=== PATIENT | male | born 1935 | race Caucasian/White ===

== ENCOUNTER 2018-11-12 08:19 | Inpatient (IN) | payer MEDICARE ==
[2018-11-12] MEDS ORDERED: IPRATROPIUM-ALBUTEROL 3 ML NEB INHALATION STA (08:32)
--- NOTE | 2018-11-12 08:34 | ED ---
General Adult HPI - General Chief complaint: Shortness of Breath Stated complaint: MINOO Time Seen by Provider: 11/12/18 08:21 Source: patient, EMS, RN notes reviewed Mode of arrival: EMS Limitations: no limitations - History of Present Illness Initial comments: Patient is a pleasant 83-year-old male presenting to the emergency Department with complaints of difficulty in breathing. Symptoms have progressed over the past week or 2. Patient does have a chronic cough that is unchanged. No sputum. No chest pain. No fever. No leg pain or leg swelling. Dyspnea does worsen with exertion. Patient is a former smoker. Patient has no history of chronic lung disease. - Related Data Home Medications Medication Instructions Recorded Confirmed Brinzolamide/Brimonidine Tart 1 drop RIGHT EYE BID 12/11/15 11/12/18 [Simbrinza 1%-0.2% Eye Drops] Digoxin [Lanoxin] 125 mcg PO DAILY 12/11/15 11/12/18 Enalapril [Vasotec] 2.5 mg PO QAM 12/11/15 11/12/18 Metoprolol Tartrate 25 mg PO BID 12/11/15 11/12/18 Simvastatin [Zocor] 20 mg PO HS 12/11/15 11/12/18 Spironolactone [Aldactone] 12.5 mg PO DAILY 12/11/15 11/12/18 Cholecalciferol [Vitamin D3] 5,000 unit PO DAILY 11/12/18 11/12/18 Warfarin Sodium 3 mg PO SUFRSA 11/12/18 11/12/18 Warfarin Sodium 4 mg PO MOTUWETH 11/12/18 11/12/18 busPIRone HCL [Buspar] 7.5 mg PO BID 11/12/18 11/12/18 Allergies Allergy/AdvReac Type Severity Reaction Status Date / Time No Known Allergies Allergy Verified 11/12/18 09:12 Review of Systems ROS Statement: Those systems with pertinent positive or pertinent negative responses have been documented in the HPI. ROS Other: All systems not noted in ROS Statement are negative. Constitutional: Denies: fever, chills Eyes: Denies: eye pain ENT: Denies: ear pain, throat pain Respiratory: Reports: dyspnea Cardiovascular: Denies: chest pain, palpitations Endocrine: Reports: fatigue Gastrointestinal: Denies: abdominal pain Genitourinary: Denies: dysuria Musculoskeletal: Denies: back pain Skin: Denies: rash Neurological: Denies: weakness Past Medical History Past Medical History: Atrial Fibrillation, Hyperlipidemia, Hypertension, Osteoarthritis (OA) Additional Past Medical History / Comment(s): neurapathy aleksandra hands and feet, urinary frequency nighttime,skin ca removed scalp History of Any Multi-Drug Resistant Organisms: None Reported Past Surgical History: Back Surgery, Heart Catheterization With Stent, Hernia Repair, Orthopedic Surgery, Pacemaker Additional Past Surgical History / Comment(s): heart stents x 2, pacemaker lt chest-[employer] mod # [id number] serial #[id number]- [employer] [id number]- has card,total lt hip,cervical laminectomy,. c5-c6 surgery,lumbar 3-5 disc repair-hardware present,aleksandra carpel tunnel,aleksandra cataracts,abdominal hernia repair Past Anesthesia/Blood Transfusion Reactions: No Reported Reaction Additional Past Anesthesia/Blood Transfusion Reaction / Comment(s): no hx blood transfusion Date of Last Stent Placement:: 11-29-2012 Type of Cardiac Device: Permanent Pacemaker Device Placement Date:: 12-01-2012 Past Psychological History: No Psychological Hx Reported Smoking Status: Former smoker Past Alcohol Use History: Occasional Past Drug Use History: None Reported - Past Family History Mother Family Medical History: Cancer (Breast), Myocardial Infarction ([place]) Additional Family Medical History / Comment(s): breast ca Father Family Medical History: No Reported History, Diabetes Mellitus Additional Family Medical History / Comment(s): at age 94 Brother(s) Family Medical History: Congestive Heart Failure (CHF) (Heart valve replacement) Additional Family Medical History / Comment(s): heart valve replacement General Exam Limitations: no limitations General appearance: alert, in no apparent distress Head exam: Present: atraumatic Eye exam: Present: normal appearance, PERRL ENT exam: Present: normal oropharynx Neck exam: Present: normal inspection Respiratory exam: Present: wheezes (Minimal expiratory wheeze), decreased breath sounds Cardiovascular Exam: Present: regular rate, normal rhythm Expanded Peripheral pulses: 2+: Radial (R), Radial (L), Dorsalis Pedis (R), Dorsalis Pedis (L) GI/Abdominal exam: Present: soft. Absent: tenderness Extremities exam: Present: normal inspection. Absent: pedal edema, calf tenderness Back exam: Present: normal inspection Neurological exam: Present: alert Psychiatric exam: Present: normal affect, normal mood Skin exam: Present: normal color Course Vital Signs 11/12/18 11/12/18 11/12/18 08:24 10:01 10:09 Temperature 98.1 F Pulse Rate 60 60 60 Respiratory 24 Rate Blood Pressure 141/54 O2 Sat by Pulse 91 L Oximetry 11/12/18 10:33 Temperature Pulse Rate 60 Respiratory 20 Rate Blood Pressure 158/62 O2 Sat by Pulse 87 L Oximetry EKG Findings - EKG Comments: EKG Findings:: Paced rhythm at 63. QRS 188. QT 436. QTc 446 and left axis. Wide-complex QRS. Nonspecific ST-T. Medical Decision Making - Medical Decision Making Patient reevaluated and resting comfortably in bed. Patient and family updated on results and plan. Case was discussed in detail with Dr. Gutierrez, covering for Dr. Lock, who will admit. - Lab Data Result diagrams: 11/12/18 08:40 11/12/18 08:40 Lab Results 11/12/18 11/12/18 11/12/18 Range/Units 08:40 08:40 08:40 WBC 13.0 H (3.8-10.6) k/uL RBC 4.08 L (4.30-5.90) m/uL Hgb 12.9 L (13.0-17.5) gm/dL Hct 39.8 (39.0-53.0) % MCV 97.6 (80.0-100.0) fL MCH 31.6 (25.0-35.0) pg MCHC 32.3 (31.0-37.0) g/dL RDW 14.1 (11.5-15.5) % Plt Count 242 (150-450) k/uL Neutrophils % 87 % Lymphocytes % 4 % Monocytes % 6 % Eosinophils % 1 % Basophils % 0 % Neutrophils # 11.3 H (1.3-7.7) k/uL Lymphocytes # 0.6 L (1.0-4.8) k/uL Monocytes # 0.8 (0-1.0) k/uL Eosinophils # 0.1 (0-0.7) k/uL Basophils # 0.1 (0-0.2) k/uL PT (9.0-12.0) sec INR (<1.2) APTT (22.0-30.0) sec D-Dimer (<0.60) mg/L FEU Sodium 132 L (137-145) mmol/L Potassium 5.0 (3.5-5.1) mmol/L Chloride 104 (98-107) mmol/L Carbon Dioxide 21 L (22-30) mmol/L Anion Gap 7 mmol/L BUN 31 H (9-20) mg/dL Creatinine 1.09 (0.66-1.25) mg/dL Est GFR (CKD-EPI)AfAm 72 (>60 ml/min/1.73 sqM) Est GFR (CKD-EPI)NonAf 62 (>60 ml/min/1.73 sqM) Glucose 117 H (74-99) mg/dL Calcium 9.1 (8.4-10.2) mg/dL Total Bilirubin 1.3 (0.2-1.3) mg/dL AST 46 (17-59) U/L ALT 37 (21-72) U/L Alkaline Phosphatase 48 (38-126) U/L Total Creatine Kinase 127 (55-170) U/L CK-MB (CK-2) 6.7 H (0.0-2.4) ng/mL CK-MB (CK-2) Rel Index 5.3 Troponin I 0.056 H* (0.000-0.034) ng/mL NT-Pro-B Natriuret Pep pg/mL Total Protein 6.4 (6.3-8.2) g/dL Albumin 3.6 (3.5-5.0) g/dL 11/12/18 11/12/18 Range/Units 08:40 08:40 WBC (3.8-10.6) k/uL RBC (4.30-5.90) m/uL Hgb (13.0-17.5) gm/dL Hct (39.0-53.0) % MCV (80.0-100.0) fL MCH (25.0-35.0) pg MCHC (31.0-37.0) g/dL RDW (11.5-15.5) % Plt Count (150-450) k/uL Neutrophils % % Lymphocytes % % Monocytes % % Eosinophils % % Basophils % % Neutrophils # (1.3-7.7) k/uL Lymphocytes # (1.0-4.8) k/uL Monocytes # (0-1.0) k/uL Eosinophils # (0-0.7) k/uL Basophils # (0-0.2) k/uL PT 22.3 H (9.0-12.0) sec INR 2.3 H (<1.2) APTT 30.6 H (22.0-30.0) sec D-Dimer >35.20 H (<0.60) mg/L FEU Sodium (137-145) mmol/L Potassium (3.5-5.1) mmol/L Chloride (98-107) mmol/L Carbon Dioxide (22-30) mmol/L Anion Gap mmol/L BUN (9-20) mg/dL Creatinine (0.66-1.25) mg/dL Est GFR (CKD-EPI)AfAm (>60 ml/min/1.73 sqM) Est GFR (CKD-EPI)NonAf (>60 ml/min/1.73 sqM) Glucose (74-99) mg/dL Calcium (8.4-10.2) mg/dL Total Bilirubin (0.2-1.3) mg/dL AST (17-59) U/L ALT (21-72) U/L Alkaline Phosphatase (38-126) U/L Total Creatine Kinase (55-170) U/L CK-MB (CK-2) (0.0-2.4) ng/mL CK-MB (CK-2) Rel Index Troponin I (0.000-0.034) ng/mL NT-Pro-B Natriuret Pep 5670 pg/mL Total Protein (6.3-8.2) g/dL Albumin (3.5-5.0) g/dL - Radiology Data Radiology results: report reviewed (Computed tomography scan negative for pulmonary embolism. Findings consistent with CHF), image reviewed (Two-view chest x-ray shows no acute process.) Disposition Clinical Impression: Congestive heart failure Disposition: ADMITTED IP TO THIS HOSP Is patient prescribed a controlled substance at d/c from ED?: No Referrals: Martita Ayers MD [Primary Care Provider] - 1-2 days Decision Time: 11:55
[2018-11-12 08:58] LABS: Basophils # (A) 0.1 k/uL (0-0.2); Basophils % (A) 0 %; Eosinophils # (A) 0.1 k/uL (0-0.7); Eosinophils % (A) 1 %; HCT 39.8 % (39.0-53.0); HGB 12.9 gm/dL (13.0-17.5); Lymphocytes # (A) 0.6 k/uL (1.0-4.8); Lymphocytes % (A) 4 %; MCH 31.6 pg (25.0-35.0); MCHC 32.3 g/dL (31.0-37.0); MCV 97.6 fL (80.0-100.0); Mean Platelet Volume 6.8; Monocytes # (A) 0.8 k/uL (0-1.0); Monocytes % (A) 6 %; Neutrophils # (A) 11.3 k/uL (1.3-7.7); Neutrophils % (A) 87 %; Platelet Count 242 k/uL (150-450); RBC 4.08 m/uL (4.30-5.90); RDW 14.1 % (11.5-15.5)
[2018-11-12 09:11] LABS: Albumin 3.6 g/dL (3.5-5.0); Calcium 9.1 mg/dL (8.4-10.2); Total Bilirubin 1.3 mg/dL (0.2-1.3); Total Protein 6.4 g/dL (6.3-8.2)
[2018-11-12 09:17] LABS: INR 2.3 (<1.2); Partial Thromboplastin Time 30.6 sec (22.0-30.0); Prothrombin Time 22.3 sec (9.0-12.0)
[2018-11-12 09:34] LABS: D-Dimer >35.20 mg/L FEU (<0.60)
[2018-11-12 09:36] LABS: Creatine Kinase MB 6.7 ng/mL (0.0-2.4)
--- NOTE | 2018-11-12 09:37 | XR ---
EXAMINATION TYPE: XR chest 2V DATE OF EXAM: 11/12/2018 COMPARISON: NONE HISTORY: Shortness of breath TECHNIQUE: Frontal and lateral views of the chest are obtained. FINDINGS: Scattered senescent parenchymal changes noted. Hyperinflation compatible with COPD. No evidence for infiltrate. No evidence for atelectasis. Heart size is enlarged. Mediastinal structures are stable and grossly unremarkable. No evidence for hilar prominence. Degenerative changes dorsal spine. IMPRESSION: 1. No evidence for acute pulmonary disease.
[2018-11-12 09:54] LABS: Troponin I 0.056 ng/mL (0.000-0.034)
[2018-11-12] MEDS ORDERED: ASPIRIN 325 MG TAB PO STA (11:56)
--- NOTE | 2018-11-12 12:03 | CT ---
EXAMINATION TYPE: CT angio chest DATE OF EXAM: 11/12/2018 COMPARISON: Same day chest x-ray HISTORY: PE; MINOO CT DLP: 269.7 mGycm. Automated Exposure Control for Dose Reduction was Utilized. CONTRAST: CTA scan of the thorax is performed without and with IV Contrast, patient injected with 100 ml mL of Isovue 370, pulmonary embolism protocol. MIP Images are created on CT scanner and reviewed. FINDINGS: LUNGS: There are small size bilateral pleural effusions nearly extending to lung apex level. Elevated left hemidiaphragm is present. There is significant respiratory motion artifact degradation making e valuation suboptimal particularly for subcentimeter nodularity. There is calcified pleural plaque lef t midlung anteriorly axial image 44. Mild interstitial opacities could reflect mild interstitial mark a. No suspicious focal consolidation. No large intraparenchymal mass. Tracheobronchial tree is patent . Mild underlying emphysematous change is felt present. MEDIASTINUM: There is satisfactory enhancement of the pulmonary artery and its branches, there is no CT evidence for pulmonary embolism. There are no greater than 1 cm hilar or mediastinal lymph nodes. No significant pericardial effusion is seen. Heart size is mildly enlarged. There is moderate righ t atrial and mild right ventricular dilatation. There are enlarged right and left pulmonary arteries, main pulmonary artery measures 3.4 cm in diameter axial image 51. CT findings consistent with underl maciel pulmonary artery hypertension. Adjacent ascending aorta measures up to 3.5 cm in diameter. Mild to moderate calcified plaque in the aortic arch and descending aorta is present. There is severe thre e-vessel coronary artery desiccation which is noted marker for coronary artery disease. There is refl ux of contrast into IVC and hepatic veins, CT findings consistent with right heart failure. Single le ad pacemaker is noted terminating in right ventricle. Calcifications at level of mitral and to greate r degree at aortic valve are noted. OTHER: Central calcification left kidney is favored vascular. Simple appearing 2.8 cm cyst medially upper pole level left kidney axial image 139 is noted. Mild to moderate multilevel disc space narrowi ng and vacuum disc phenomenon with moderate multilevel spurring is present. Degenerative change right glenohumeral joint is seen. There is partial visualization of surgical change in the lumbar spine on localizer. IMPRESSION: 1. No CT evidence for acute pulmonary embolism. 2. Findings consistent with CHF exacerbation felt present as there is mild cardiomegaly with mild aleksandra ateral interstitial edema and small bilateral pleural effusions. No suspicious focal consolidation. C T findings suggestive of right heart failure and underlying pulmonary artery hypertension noted.
[2018-11-12] MEDS ORDERED: ACETAMINOPHEN TAB 325 MG TAB PO STA (13:25)
[2018-11-12] MEDS: NITROGLYCERIN OINT 1 INCH/GM PACKET TOPICAL SCH ×2 (13:41→19:05)
--- NOTE | 2018-11-12 15:13 | P.HPIM ---
History of Present Illness H&P Date: 11/12/18 Chief Complaint: Worsening shortness of breath This is a 83-year-old male with a known past medical history of congestive heart failure, atrial fibrillation, hyperlipidemia, hypertension, coronary artery disease cardiac stents and pacemaker placement. Patient presents to the emergency room with chief complaint of worsening shortness of breath over the last 2 weeks. Patient reports last night he went to get up to go to the bathroom and did have a fall landing on his left hip. He is having difficulty getting up because he felt so weak and also increasing in shortness of breath. He made it back to his bed and was able to sleep at night. He woke up this morning again short of breath having difficulty even walking a few feet. and patient became concerned and called EMS and was brought into the hospital for further evaluation and treatment. Patient was found to have congestive heart failure. BNP was elevated in the 5000 CTA of the chest showing evidence of congestive heart failure. It revealed mild cardiomegaly with mild bilateral interstitial edema and small bilateral pleural effusions. No suspicious focal consolidation. CT findings are suggestive of right heart failure and underlying pulmonary artery hypertension. Patient started on IV Lasix 40 mg every 8 hours and cardiology has been placed on consult. Also note the patient was initially on Lasix oral twice a day. However he could not tolerate it because he had was urinating so much he cut back to once a day and still was urinating frequently. Patient stopped taking Lasix about a month ago on his own. Patient denies any chest pain, fever, chills, sweats, orthopnea, lower extremity swelling. Denies any bowel movement changes or urinary symptoms. Patient does admit to a chronic cough especially in the morning. Patient anticoagulated with Coumadin for atrial fibrillation. D-dimer was elevated at 35 CTA of chest negative for PE. Note that the troponin mildly elevated at 0.056 white count 13 and INR 2.3 Review of Systems Please refer to HPI otherwise unremarkable Past Medical History Past Medical History: Atrial Fibrillation, Coronary Artery Disease (CAD), Eye Disorder, Hyperlipidemia, Hypertension, Osteoarthritis (OA) Additional Past Medical History / Comment(s): Cardiomyopathy, arthritis multiple joints, neuropathy bilateral hands/legs/feet, BPH with frequent night time urination, glaucoma bilateral eyes, skin cancer removed from scalp. History of Any Multi-Drug Resistant Organisms: None Reported Past Surgical History: Back Surgery, Heart Catheterization With Stent, Hernia Repair, Orthopedic Surgery, Pacemaker Additional Past Surgical History / Comment(s): PCI with 2 stents, pacemaker lt chest-[employer] mod # [id number] serial #[id number] [employer] [id number]- has card, total lt hip, cervical [id number] surgery, lumbar 3-5 disc repair-hardware present,aleksandra carpel tunnel, aleksandra cataracts removed/lens implants, abdominal hernia repair, colonoscopy. Past Anesthesia/Blood Transfusion Reactions: No Reported Reaction Additional Past Anesthesia/Blood Transfusion Reaction / Comment(s): no hx blood transfusion Date of Last Stent Placement:: 11-29-2012 Type of Cardiac Device: Permanent Pacemaker Device Placement Date:: 12-01-2012 Smoking Status: Former smoker - Past Family History Mother Family Medical History: Cancer, Myocardial Infarction ([place]) Additional Family Medical History / Comment(s): breast ca Father Family Medical History: No Reported History, Diabetes Mellitus Additional Family Medical History / Comment(s): at age 94 Brother(s) Family Medical History: Congestive Heart Failure (CHF) Additional Family Medical History / Comment(s): heart valve replacement Medications and Allergies Home Medications Medication Instructions Recorded Confirmed Type Brinzolamide/Brimonidine Tart 1 drop RIGHT EYE BID 12/11/15 11/12/18 History [Simbrinza 1%-0.2% Eye Drops] Digoxin [Lanoxin] 125 mcg PO DAILY 12/11/15 11/12/18 History Enalapril [Vasotec] 2.5 mg PO QAM 12/11/15 11/12/18 History Metoprolol Tartrate 25 mg PO BID 12/11/15 11/12/18 History Simvastatin [Zocor] 20 mg PO HS 12/11/15 11/12/18 History Spironolactone [Aldactone] 12.5 mg PO DAILY 12/11/15 11/12/18 History Cholecalciferol [Vitamin D3] 5,000 unit PO DAILY 11/12/18 11/12/18 History Warfarin Sodium 3 mg PO SUFRSA 11/12/18 11/12/18 History Warfarin Sodium 4 mg PO MOTUWETH 11/12/18 11/12/18 History busPIRone HCL [Buspar] 7.5 mg PO BID 02/01/19 02/01/19 History Allergies Allergy/AdvReac Type Severity Reaction Status Date / Time No Known Allergies Allergy Verified 11/12/18 09:12 Physical Exam Vitals: Vital Signs Temp Pulse Resp BP Pulse Ox 11/12/18 14:00 60 18 134/57 97 11/12/18 13:40 60 20 118/71 93 L 11/12/18 13:18 97.8 F 60 18 102/74 99 11/12/18 12:42 101 H 24 158/68 98 11/12/18 10:33 60 20 158/62 87 L 11/12/18 10:09 60 11/12/18 10:01 60 11/12/18 08:24 98.1 F 60 24 141/54 91 L Intake and Output 11/11/18 11/12/18 11/12/18 22:59 06:59 14:59 Other: Weight 77.111 kg Head normocephalic Neck supple Lungs diminished bilaterally ,patient is short of breath while talking Heart regular rate and rhythm S1-S2, no rub or gallop Abdomen is soft nontender nondistended positive bowel sounds no hepatosplenomegaly Extremities no edema Neuro alert and orientated to 3 Results CBC & Chem 7: 11/12/18 08:40 11/12/18 08:40 Labs: Abnormal Lab Results - Last 24 Hours (Table) 11/12/18 11/12/18 11/12/18 Range/Units 08:40 08:40 08:40 WBC 13.0 H (3.8-10.6) k/uL RBC 4.08 L (4.30-5.90) m/uL Hgb 12.9 L (13.0-17.5) gm/dL Neutrophils # 11.3 H (1.3-7.7) k/uL Lymphocytes # 0.6 L (1.0-4.8) k/uL PT (9.0-12.0) sec INR (<1.2) APTT (22.0-30.0) sec D-Dimer (<0.60) mg/L FEU Sodium 132 L (137-145) mmol/L Carbon Dioxide 21 L (22-30) mmol/L BUN 31 H (9-20) mg/dL Glucose 117 H (74-99) mg/dL CK-MB (CK-2) 6.7 H (0.0-2.4) ng/mL Troponin I 0.056 H* (0.000-0.034) ng/mL 11/12/18 Range/Units 08:40 WBC (3.8-10.6) k/uL RBC (4.30-5.90) m/uL Hgb (13.0-17.5) gm/dL Neutrophils # (1.3-7.7) k/uL Lymphocytes # (1.0-4.8) k/uL PT 22.3 H (9.0-12.0) sec INR 2.3 H (<1.2) APTT 30.6 H (22.0-30.0) sec D-Dimer >35.20 H (<0.60) mg/L FEU Sodium (137-145) mmol/L Carbon Dioxide (22-30) mmol/L BUN (9-20) mg/dL Glucose (74-99) mg/dL CK-MB (CK-2) (0.0-2.4) ng/mL Troponin I (0.000-0.034) ng/mL Thrombosis Risk Factor Assmnt - Choose All That Apply Any of the Below Risk Factors Present?: Yes Each Factor Represents 1 point: Heart failure (<1month) Other Risk Factors: Yes Each Risk Factor Represents 2 Points: Malignancy Each Risk Factor Represents 3 Points: Age 75 years or older Other congenital or acquired thrombophilia - If yes, enter type in comment: No Thrombosis Risk Factor Assessment Total Risk Factor Score: 6 Thrombosis Risk Factor Assessment Level: High Risk Assessment and Plan Assessment: 1. Acute on chronic CHF exacerbation: Start patient on IV Lasix 40 mg every 8. Consult cardiology. Check 2-D echo. BNP elevated 5670. CTA of the chest noting congestive heart failure findings. Patient noncompliant with his home Lasix 2. Leukocytosis: consult infectious disease. Patient is known to Dr. Ayers 3. Elevated troponin 0.056. Patient denies chest pain. Continue to monitor cardiac enzymes. Await cardiology evaluation 4. Fall with left hip pain. No loss of consciousness. Check left x-ray. Patient has had previous orthopedic surgery to that left hip 5. History of Atrial fibrillation: anticoagulated with Coumadin. Continue digoxin and metoprolol for rate control 6. History of coronary artery disease with prior cardiac stents 2 7. Hyperlipidemia 8. Essential hypertension 9. Elevated d-dimer and CT of the chest negative for PE 10. Acute hypoxic respiratory failure secondary to CHF exacerbation. Patient currently on 2 L of oxygen GI prophylaxis Pepcid and DVT prophylaxis Coumadin Time with Patient: Greater than 30 (Greater than 50% of the total time spent in counseling and coordination of care.I performed an examination of the patient and discussed their management with the physician Reflector Driller And Deburrer. I have reviewed the Physician Reflector Driller And Deburrer's notes and agree with the documented findings and plan of care)
--- NOTE | 2018-11-12 16:36 | XR ---
EXAMINATION TYPE: XR Hip Complete LT DATE OF EXAM: 11/12/2018 COMPARISON: 06/11/2016 HISTORY: 83-year-old male with pain, fall TECHNIQUE: FINDINGS: Both acetabular cup and femoral stem components of the left hip arthroplasty appear well seated. No c onvincing periprosthetic fracture is identified. Extensive, nearly bridging heterotopic ossification along the superior aspect of the hip joint is unchanged. IMPRESSION: Left hip total arthroplasty. No appreciable periprosthetic fracture is identified. Near-complete brid ging heterotopic ossification along the superior aspect of the hip joint similar to 2016.
[2018-11-12] MEDS: FUROSEMIDE 10 MG/ML 4 ML VIAL IV SCH (16:46)
[2018-11-12 17:12] LABS: Troponin I 0.075 ng/mL (0.000-0.034)
[2018-11-12] MEDS: WARFARIN 3 MG TAB PO SCH (19:05)
[2018-11-12] MEDS: BRIMONIDINE TARTRATE 0.2% DROPS 5 ML BTL RIGHT EYE SCH (20:07)
[2018-11-12] MEDS: METOPROLOL TARTRATE 25 MG TAB PO SCH (20:07)
[2018-11-12] MEDS: DORZOLAMIDE HCL 2% DROPS 10 ML BTL RIGHT EYE SCH (20:07)
[2018-11-12] MEDS: busPIRone HCl 5 MG TAB PO SCH (20:07)
[2018-11-12] MEDS: ATORVASTATIN 10 MG TAB PO SCH (20:07)
[2018-11-12 20:44] LABS: Creatine Kinase MB 6.9 ng/mL (0.0-2.4)
[2018-11-12 20:54] LABS: Troponin I 0.077 ng/mL (0.000-0.034)
[2018-11-13] MEDS: FUROSEMIDE 10 MG/ML 4 ML VIAL IV SCH ×3 (00:02→16:35)
[2018-11-13] MEDS: NITROGLYCERIN OINT 1 INCH/GM PACKET TOPICAL SCH ×2 (00:05→09:23)
[2018-11-13 07:17] LABS: Basophils # (A) 0.1 k/uL (0-0.2); Basophils % (A) 1 %; Eosinophils # (A) 0.4 k/uL (0-0.7); Eosinophils % (A) 4 %; HCT 41.5 % (39.0-53.0); HGB 13.5 gm/dL (13.0-17.5); Lymphocytes # (A) 0.8 k/uL (1.0-4.8); Lymphocytes % (A) 7 %; MCH 32.1 pg (25.0-35.0); MCHC 32.7 g/dL (31.0-37.0); MCV 98.4 fL (80.0-100.0); Mean Platelet Volume 6.7; Monocytes # (A) 0.6 k/uL (0-1.0); Monocytes % (A) 6 %; Neutrophils # (A) 8.5 k/uL (1.3-7.7); Neutrophils % (A) 81 %; Platelet Count 237 k/uL (150-450); RBC 4.21 m/uL (4.30-5.90); WBC 10.5 k/uL (3.8-10.6)
[2018-11-13 07:29] LABS: Albumin 3.6 g/dL (3.5-5.0); Calcium 9.4 mg/dL (8.4-10.2); Potassium 4.4 mmol/L (3.5-5.1); Total Bilirubin 1.4 mg/dL (0.2-1.3); Total Protein 6.4 g/dL (6.3-8.2)
[2018-11-13 07:30] LABS: INR 2.2 (<1.2); Prothrombin Time 21.7 sec (9.0-12.0)
--- NOTE | 2018-11-13 08:23 | ECHOF ---
Referral Reason:check EF MEASUREMENTS -------- HEIGHT: 175.3 cm WEIGHT: 77.1 kg BP: 102/74 IVSd: 1.1 cm (0.6 - 1.1) LVIDd: 4.8 cm (3.9 - 5.3) LVPWd: 1.1 cm (0.6 - 1.1) IVSs: 1.1 cm LVIDs: 4.2 cm LVPWs: 1.2 cm LAESV Index (A-L): 46.73 ml/m Ao Diam: 2.6 cm (2.0 - 3.7) LA Diam: 3.8 cm (2.7 - 3.8) AV Cusp: 1.3 cm (1.5 - 2.6) EPSS: 1.0 cm AV maxP.14 mmHg AV meanP.35 mmHg RAP: 5.00 mmHg RVSP: 52.71 mmHg MV EF SLOPE: 90.38 mm/s (70 - 150) MV EXCURSION: 1.84 cm (> 18.000) FINDINGS -------- Paced rhythm. This was a technically adequate study. The left ventricular size is normal. There is borderline concentric left ventricular hypertrophy. Overall left ventricular systolic function is moderate-severely impaired with, an EF between 30 - 35 %. Septum is hypokinetic Inferior is hypokinetic. [place] is hypokinetic. The RV was not well visualized. LA is severely dilated >40 ml/m2 RA appears enlarged. There is mild to moderate aortic valve sclerosis. Trace amount of aortic regurgitation. There is mild aortic stenosis present. Peak/mean gradient across the Aortic Valve is 16.14mmHg / 10.35mmHg. The mitral valve leaflets are mildly thickened. Mild mitral annular calcification present. Mod[place] [id number] mitral regurgitation is present. Moderate to severe tricuspid regurgitation present. There is mild to moderate pulmonary hypertensio n. The right ventricular systolic pressure, as measured by Doppler, is 52.71mmHg. The pulmonic valve was not well visualized. The aortic root size is normal. Normal inferior vena cava with normal inspiratory collapse consistent with estimated right atrial pre ssure of 5 mmHg. There is no pericardial effusion. CONCLUSIONS -------- 1. Paced rhythm. 2. This was a technically adequate study. 3. The left ventricular size is normal. 4. There is borderline concentric left ventricular hypertrophy. 5. Overall left ventricular systolic function is moderate-severely impaired with, an EF between 30 - 35 %. 6. Septum is hypokinetic 7. Inferior is hypokinetic. 8. [place] is hypokinetic. 9. The RV was not well visualized. 10. LA is severely dilated >40 ml/m2 11. RA appears enlarged. 12. There is mild to moderate aortic valve sclerosis. 13. Trace amount of aortic regurgitation. 14. There is mild aortic stenosis present. 15. Peak/mean gradient across the Aortic Valve is 16.14mmHg / 10.35mmHg. 16. The mitral valve leaflets are mildly thickened. 17. Mild mitral annular calcification present. 18. [id number] mitral regurgitation is present. 19. Moderate to severe tricuspid regurgitation present. 20. There is mild to moderate pulmonary hypertension. 21. The right ventricular systolic pressure, as measured by Doppler, is 52.71mmHg. 22. The pulmonic valve was not well visualized. 23. The aortic root size is normal. 24. There is no pericardial effusion. [place] ATTORNEY: Bobby Salazar RDCS
--- NOTE | 2018-11-13 08:52 | CONS ---
CONSULTATION DATE OF SERVICE: 11/12/2018. REASON FOR CONSULTATION: Leukocytosis. HISTORY OF PRESENT ILLNESS: The patient is an 83 -year-old male presenting to the ER at [facility] with increasing shortness of breath. The patient's symptoms has been progressively getting worse over the last week. The patient also had a recent fall last week when the patient was trying to get out and slipped, hitting his left hip area. The patient has been complaining of some dull aching pain to the left hip, 3 to 4 out of 10, and no radiation. The patient had increasing shortness of breath mostly on exertion but some with rest. The patient did have a very mild cough mostly in the morning. The patient has no further coughing during the day or any sputum production. The patient denies having any URI symptoms. No abdominal pain or any diarrhea. With these symptoms, the patient was evaluated by the ER physician. On arrival to the ER, patient was afebrile. [place] [address] also elevated troponin, INR therapeutic at 2.3. Liver enzymes were normal. No UA was done. The patient did have a CT angiogram that was negative for PE. However did shows features of congestive heart failure. Chest x-ray was negative for any acute pulmonary disease. X-rays of the left hip did not show any evidence of any fracture. The patient has been admitted to the hospital for management of underlying cardiac condition with consult to cardiology. I was asked to see the patient because of his elevated white count. REVIEW OF SYSTEMS: Positive points have been mentioned in HPI. Other systems have been negative. PAST MEDICAL HISTORY: Atrial fibrillation, coronary artery disease, hypertension, hyperlipidemia, osteoarthritis, benign prostatic hypertrophy. PAST SURGICAL HISTORY: Back surgery, heart catheterization, stent, hernia repair, left hip replacement, PTCA with stent x2 and pacemaker placement. SOCIAL HISTORY: Remote history of smoking. , lives with his . No drinking or drug use. FAMILY HISTORY: Mother with history of breast cancer and [place]. Father history of diabetes. ALLERGIES: No known drug allergies. MEDICATION: The patient is currently on aspirin, Lipitor, Buspar, vitamin D3, Lanoxin, Pepcid and Lasix, Zestril, Lopressor, Aldactone, Coumadin. PHYSICAL EXAMINATION: Blood pressure is 137/64 with a pulse of 59. Temperature 97.7, he is 98% on 3 L nasal cannula. General description is an elderly male lying in bed in no distress. No tachypnea or accessory muscles of respiration use. HEENT: Shows slight pallor. No scleral icterus. Oral mucosa membranes are dry. No pharyngeal erythema or thrush. Neck: Trachea central. No thyromegaly. Lungs unlabored breathing. Clear to auscultation anteriorly. No wheeze. Heart S1, S2. Irregular rate and rhythm. ABDOMEN: Soft. No tenderness. No guarding or rigidity. Extremities: No edema of the feet. SKIN examination: No rash or mass palpable. Neurological: Patient is awake, alert, oriented times three. Mood and affect normal. LABS: Hemoglobin is 12.8, white count 13,000 with a BUN of 31, creatinine 1.01. Troponin has been elevated. Electrolytes normal. Liver enzymes normal. 0.9. Chest x-ray has been negative. DIAGNOSTIC IMPRESSION AND PLAN: Patient admitted to the hospital with increasing shortness of breath and more likely cardiac etiology. Clinically, the patient has low for underlying pneumonia. However, the patient did have elevated white count, which could be reactive with underlying chronic condition. Also have a history of recent fall with pain to the left hip. No evidence of any fracture noted. The patient did not have any tenderness on abdominal examination. etiology. Underlying UTI need to be ruled out. PLAN: 1. We will check a UA and cultures to complete the workup. 2. Repeat CBC tomorrow. 3. If the patient spikes any fever, or any jump in the white count, repeat cultures will be obtained before starting the patient on any antibiotic. However in view of clinical low suspicion for any infection at this point, we will hold on any systemic antibiotic therapy. Thank you for this consultation. We will follow this patient along with you. MMODL / IJN: [id number] /
[2018-11-13] MEDS ORDERED: ASPIRIN 325 MG TAB PO SCH (09:00)
[2018-11-13] MEDS: busPIRone HCl 5 MG TAB PO SCH ×2 (09:21→20:25)
[2018-11-13] MEDS: DIGOXIN 125 MCG TAB PO SCH (09:22)
[2018-11-13] MEDS: FAMOTIDINE 20 MG TAB PO SCH (09:22)
[2018-11-13] MEDS: METOPROLOL TARTRATE 25 MG TAB PO SCH ×2 (09:22→20:26)
[2018-11-13] MEDS: LISINOPRIL 5 MG TAB PO SCH (09:22)
[2018-11-13] MEDS: SPIRONOLACTONE 25 MG TAB PO SCH (09:22)
[2018-11-13] MEDS: DORZOLAMIDE HCL 2% DROPS 10 ML BTL RIGHT EYE SCH ×2 (09:23→20:26)
[2018-11-13] MEDS: BRIMONIDINE TARTRATE 0.2% DROPS 5 ML BTL RIGHT EYE SCH ×2 (09:23→20:26)
--- NOTE | 2018-11-13 10:01 | P.CRDCN ---
History of Present Illness Consult date: 11/13/18 Requesting physician: Jean Gutierrez Consult reason: congestive heart failure Chief complaint: Shortness of breath History of present illness: This is a pleasant 83-year-old gentleman who follows regularly with Dr. Dietz in the office. He has a known history of hyperlipidemia, hypertension, coronary artery disease with prior stent placements, prior pacemaker implantation, persistent atrial fibrillation, prior congestive heart failure. He presents to the hospital with symptoms of progressively worsening shortness of breath with associated wheezing, he states that he's also progressively been more weak and tired at home. According to the patient, he also experienced a fall, secondary to his legs being extremely weak. For these reasons she came to the emergency room for further evaluation. His initial chest x-ray on arrival here did not reveal any evidence for acute pulmonary disease. CTA of the chest did not reveal evidence for acute pulmonary embolism. Findings consistent with CHF exacerbation, mild cardiomegaly with mild bilateral interstitial edema and small bilateral pleural effusions. Left hip x-ray was performed which did not reveal any fracture. An echocardiogram with Doppler study was performed which revealed an ejection fraction of 30-35%, moderate to severe MR, moderate to severe TR, blood pressure on arrival here 140 /50 with a heart rate in the 60s, 91% on 3 L of oxygen. Blood pressure this morning 158/70 with a heart rate in the 60s, 94% on 4 L of oxygen. White blood cell count on admission 13.0, 10.5 this morning, hemoglobin 13.5, platelet count 237. INR 2.2, sodium 134, potassium 4.4, BUN 33 and creatinine 1.1. Troponins 0.05, 0.07, 0.07. BNP level 5670. Dig 0.9. At the time of my examination this morning, patient still complains of feeling short of breath. He does state that he coughed up a significant amount of yellow sputum earlier this morning. Past Medical History Past Medical History: Atrial Fibrillation, Coronary Artery Disease (CAD), Eye Disorder, Hyperlipidemia, Hypertension, Osteoarthritis (OA) Additional Past Medical History / Comment(s): Cardiomyopathy, arthritis multiple joints, neuropathy bilateral hands/legs/feet, BPH with frequent night time urination, glaucoma bilateral eyes, skin cancer removed from scalp. History of Any Multi-Drug Resistant Organisms: None Reported Past Surgical History: Back Surgery, Heart Catheterization With Stent, Hernia Repair, Orthopedic Surgery, Pacemaker Additional Past Surgical History / Comment(s): PCI with 2 stents, pacemaker lt chest-[employer] mod # [id number] serial #[id number]- [employer] [id number]- has card, total lt hip, cervical [id number] surgery, lumbar 3-5 disc repair-hardware present,aleksandra carpel tunnel, aleksandra cataracts removed/lens implants, abdominal hernia repair, colonoscopy. Past Anesthesia/Blood Transfusion Reactions: No Reported Reaction Additional Past Anesthesia/Blood Transfusion Reaction / Comment(s): no hx blood transfusion Date of Last Stent Placement:: 11-29-2012 Type of Cardiac Device: Permanent Pacemaker Device Placement Date:: 12-01-2012 Smoking Status: Former smoker - Past Family History Mother Family Medical History: Cancer, Myocardial Infarction ([place]) Additional Family Medical History / Comment(s): breast ca Father Family Medical History: No Reported History, Diabetes Mellitus Additional Family Medical History / Comment(s): at age 94 Brother(s) Family Medical History: Congestive Heart Failure (CHF) Additional Family Medical History / Comment(s): heart valve replacement Medications and Allergies Home Medications Medication Instructions Recorded Confirmed Type Brinzolamide/Brimonidine Tart 1 drop RIGHT EYE BID 12/11/15 11/12/18 History [Simbrinza 1%-0.2% Eye Drops] Digoxin [Lanoxin] 125 mcg PO DAILY 12/11/15 11/12/18 History Enalapril [Vasotec] 2.5 mg PO QAM 12/11/15 11/12/18 History Metoprolol Tartrate 25 mg PO BID 12/11/15 11/12/18 History Simvastatin [Zocor] 20 mg PO HS 12/11/15 11/12/18 History Spironolactone [Aldactone] 12.5 mg PO DAILY 12/11/15 11/12/18 History Cholecalciferol [Vitamin D3] 5,000 unit PO DAILY 11/12/18 11/12/18 History Warfarin Sodium 3 mg PO SUSA 11/12/18 11/12/18 History Warfarin Sodium 4 mg PO MOTUWETHFR 11/12/18 11/12/18 History busPIRone HCL [Buspar] 7.5 mg PO BID 11/12/18 11/12/18 History Allergies Allergy/AdvReac Type Severity Reaction Status Date / Time No Known Allergies Allergy Verified 11/12/18 09:12 Physical Exam Vitals: Vital Signs Temp Pulse Pulse Resp BP BP Pulse Ox 11/13/18 04:00 66 22 159/70 94 L 11/13/18 00:00 66 24 169/75 97 11/12/18 20:00 97.7 F 59 L 20 137/61 98 11/12/18 18:05 60 29 H 169/69 98 11/12/18 16:45 60 22 151/73 98 11/12/18 15:00 60 18 122/63 95 11/12/18 14:00 60 18 134/57 97 11/12/18 13:40 60 20 118/71 93 L 11/12/18 13:18 97.8 F 60 18 102/74 99 11/12/18 12:42 101 H 24 158/68 98 11/12/18 10:33 60 20 158/62 87 L 11/12/18 10:09 60 11/12/18 10:01 60 Intake and Output 11/12/18 11/13/18 11/13/18 22:59 06:59 14:59 Output Total 200 900 Balance -200 -900 Output: Urine 200 900 Other: Voiding Method Bedside Commode Urinal # Voids 2 Weight 72 kg PHYSICAL EXAMINATION: GENERAL: 83-year-old gentleman in no acute distress at the time of my examination HEENT: Head is atraumatic, normocephalic. Pupils equal, round. Sclera anicteric. Conjunctiva are clear. Mucous membranes of the mouth are moist. Neck is supple. There is elevated jugular venous pressure. No carotid bruit is heard. HEART EXAMINATION: Heart S1 and S2 irregularly irregular systolic ejection murmur is heard. CHEST EXAMINATION: Lungs reveal diminished air entry bilaterally, scattered wheezing throughout .No chest wall tenderness is noted on palpation or with deep breathing. ABDOMEN: Soft, nontender. Bowel sounds are heard. No organomegaly noted. EXTREMITIES: 2+ peripheral pulses with no evidence of peripheral edema and no calf tenderness noted. NEUROLOGIC patient is awake, alert and oriented 3 . . Results 11/13/18 06:18 11/13/18 06:18 Cardiac Enzymes 11/12/18 11/12/18 11/12/18 Range/Units 08:40 15:37 19:59 AST (17-59) U/L CK-MB (CK-2) 6.7 H 7.0 H 6.9 H (0.0-2.4) ng/mL Troponin I 0.056 H* 0.075 H* 0.077 H* (0.000-0.034) ng/mL 11/13/18 Range/Units 06:18 AST 37 (17-59) U/L CK-MB (CK-2) (0.0-2.4) ng/mL Troponin I (0.000-0.034) ng/mL Coagulation 11/13/18 Range/Units 06:18 PT 21.7 H (9.0-12.0) sec CBC 11/13/18 Range/Units 06:18 WBC 10.5 (3.8-10.6) k/uL RBC 4.21 L (4.30-5.90) m/uL Hgb 13.5 (13.0-17.5) gm/dL Hct 41.5 (39.0-53.0) % Plt Count 237 (150-450) k/uL Comprehensive Metabolic Panel 11/13/18 Range/Units 06:18 Sodium 134 L (137-145) mmol/L Potassium 4.4 (3.5-5.1) mmol/L Chloride 101 (98-107) mmol/L Carbon Dioxide 23 (22-30) mmol/L BUN 33 H (9-20) mg/dL Creatinine 1.17 (0.66-1.25) mg/dL Glucose 100 H (74-99) mg/dL Calcium 9.4 (8.4-10.2) mg/dL AST 37 (17-59) U/L ALT 38 (21-72) U/L Alkaline Phosphatase 53 (38-126) U/L Total Protein 6.4 (6.3-8.2) g/dL Albumin 3.6 (3.5-5.0) g/dL Current Medications Generic Name Dose Route Start Last Admin Trade Name Freq PRN Reason Stop Dose Admin Aspirin 325 mg 11/13/18 09:00 11/13/18 09:22 Aspirin PO 325 mg DAILY ARIA Administration Atorvastatin Calcium 10 mg 11/12/18 21:00 11/12/18 20:07 Lipitor PO 10 mg HS ARIA Administration Brimonidine Tartrate 1 drops 11/12/18 21:00 11/13/18 09:23 Alphagan P 0.2% Ophth Soln RIGHT EYE 1 drops BID [facility] Administration Buspirone HCl 7.5 mg 11/12/18 21:00 11/13/18 09:21 Buspar PO 7.5 mg BID [facility] Administration Cholecalciferol 5,000 unit 11/13/18 12:00 Vitamin D3 PO DAILY@1200 [facility] Digoxin 125 mcg 11/13/18 09:00 11/13/18 09:22 Lanoxin PO 125 mcg DAILY [facility] Administration Dorzolamide HCl 1 drops 11/12/18 21:00 11/13/18 09:23 Trusopt RIGHT EYE 1 drops BID [facility] Administration Famotidine 20 mg 11/13/18 09:00 11/13/18 09:22 Pepcid PO 20 mg DAILY [facility] Administration Furosemide 40 mg 11/12/18 16:00 11/13/18 09:21 Lasix IV 40 mg Q8HR [facility] Administration Lisinopril 5 mg 11/13/18 09:00 11/13/18 09:22 Zestril PO 5 mg QAM [facility] Administration Metoprolol Tartrate 25 mg 11/12/18 21:00 11/13/18 09:22 Lopressor PO 25 mg BID [facility] Administration Nitroglycerin 1 inch 11/12/18 13:00 11/13/18 09:23 Nitro-Bid Oint TOPICAL 1 inch QID [facility] Administration Sodium Chloride 10 ml 11/12/18 21:00 11/13/18 09:24 Saline Flush IV 10 ml BID [facility] Administration Spironolactone 12.5 mg 11/13/18 09:00 11/13/18 09:22 Aldactone PO 12.5 mg DAILY [facility] Administration Warfarin Sodium 3 mg 11/12/18 18:00 11/12/18 19:05 Coumadin PO 3 mg SuFrSa@1800 [facility] Administration Warfarin Sodium 4 mg 11/15/18 18:00 Coumadin PO MoTuWeTh@1800 [facility] Intake and Output 11/12/18 11/13/18 11/13/18 22:59 06:59 14:59 Output Total 200 900 Balance -200 -900 Output: Urine 200 900 Other: Voiding Method Bedside Commode Urinal # Voids 2 Weight 72 kg 11/13/18 06:18 11/13/18 06:18 EKG Interpretations (text) EKG shows a ventricular paced rhythm with underlying atrial fibrillation Assessment and Plan Plan: Assessment and plan #1 systolic congestive heart failure acute on chronic, echocardiogram with Doppler study was performed which revealed an ejection fraction of 30-35%, inferior, apical, septal hypokinesia. Moderate to severe mitral regurgitation and moderate to severe tricuspid regurg with moderate pulmonary hypertension noted. #2 chronic persistent atrial fibrillation, anticoagulated with Coumadin #3 hypertension #4 hyperlipidemia #5 known coronary artery disease with prior RCA stents #6 prior pacemaker implantation #7 abnormal troponins, not consistent with acute coronary syndrome, could be secondary to supply and demand mismatch. #8 possible tracheobronchitis Plan Echocardiogram with Doppler has been performed which revealed an EF of 30-35%. We will continue the patient on his dose of IV Lasix. Decrease aspirin 81 mg daily, continue metoprolol, discontinue Nitropaste, continue Aldactone and lisinopril along with Lanoxin. Monitor intake and along with daily weights and daily lytes BUN and creatinine daily PT/INR. Further recommendations to follow. DNP note has been reviewed, I agree with a documented findings and plan of care. Patient was seen and examined.
[2018-11-13] MEDS: CHOLECALCIFEROL 1,000 UNIT TAB PO SCH (12:15)
[2018-11-13 12:34] VITALS: BMI 23.4
--- NOTE | 2018-11-13 14:55 | P.PN ---
Subjective Progress Note Date: 11/13/18 This is a 83-year-old male with a known past medical history of congestive heart failure, atrial fibrillation, hyperlipidemia, hypertension, coronary artery disease cardiac stents and pacemaker placement. Patient presents to the emergency room with chief complaint of worsening shortness of breath over the last 2 weeks. Patient reports last night he went to get up to go to the bathroom and did have a fall landing on his left hip. He is having difficulty getting up because he felt so weak and also increasing in shortness of breath. He made it back to his bed and was able to sleep at night. He woke up this morning again short of breath having difficulty even walking a few feet. and patient became concerned and called EMS and was brought into the hospital for further evaluation and treatment. Patient was found to have congestive heart failure. BNP was elevated in the 5000 CTA of the chest showing evidence of congestive heart failure. It revealed mild cardiomegaly with mild bilateral interstitial edema and small bilateral pleural effusions. No suspicious focal consolidation. CT findings are suggestive of right heart failure and underlying pulmonary artery hypertension. Patient started on IV Lasix 40 mg every 8 hours and cardiology has been placed on consult. Also note the patient was initially on Lasix oral twice a day. However he could not tolerate it because he had was urinating so much he cut back to once a day and still was urinating frequently. Patient stopped taking Lasix about a month ago on his own. Patient denies any chest pain, fever, chills, sweats, orthopnea, lower extremity swelling. Denies any bowel movement changes or urinary symptoms. Patient does admit to a chronic cough especially in the morning. Patient anticoagulated with Coumadin for atrial fibrillation. D-dimer was elevated at 35 CTA of chest negative for PE. Note that the troponin mildly elevated at 0.056 white count 13 and INR 2.3 On 11/13/2018 patient was seen and examined on the telemetry floor he is laying in bed comfortably he states that his shortness of breath has improved he is able to ambulate from his bed to the bathroom with the use of walker there is no fever or chills no headache or dizziness no chest pain no palpitation no cough no nausea or vomiting no abdominal pain no diarrhea and no urinary symptoms Objective - Vital Signs Vital signs: Vital Signs Temp 97.3 F L 11/13/18 12:10 Pulse 63 11/13/18 12:10 Resp 20 11/13/18 12:10 BP 131/65 11/13/18 12:10 Pulse Ox 97 11/13/18 12:10 Intake & Output 11/12/18 11/13/18 11/13/18 18:59 06:59 18:59 Intake Total 840 Output Total 1100 Balance -1100 840 Weight 77.111 kg 72 kg 72 kg Intake: Oral 840 Output: Urine 1100 Other: Voiding Method Bedside Commode Urinal # Voids 2 - Exam Head normocephalic and atraumatic Neck supple no JVD no goiter Lungs diminished bilaterally ,patient is short of breath while talking Heart regular rate and rhythm S1-S2, no rub or gallop Abdomen is soft nontender nondistended positive bowel sounds no hepatosplenomegaly Extremities no edema no cyanosis or clubbing Neuro alert and orientated to 3 - Labs CBC & Chem 7: 11/13/18 06:18 11/13/18 06:18 Labs: Abnormal Lab Results - Last 24 Hours (Table) 11/12/18 11/12/18 11/13/18 Range/Units 15:37 19:59 06:18 RBC 4.21 L (4.30-5.90) m/uL Neutrophils # 8.5 H (1.3-7.7) k/uL Lymphocytes # 0.8 L (1.0-4.8) k/uL PT (9.0-12.0) sec INR (<1.2) Sodium (137-145) mmol/L BUN (9-20) mg/dL Glucose (74-99) mg/dL Total Bilirubin (0.2-1.3) mg/dL CK-MB (CK-2) 7.0 H 6.9 H (0.0-2.4) ng/mL Troponin I 0.075 H* 0.077 H* (0.000-0.034) ng/mL 11/13/18 11/13/18 Range/Units 06:18 06:18 RBC (4.30-5.90) m/uL Neutrophils # (1.3-7.7) k/uL Lymphocytes # (1.0-4.8) k/uL PT 21.7 H (9.0-12.0) sec INR 2.2 H (<1.2) Sodium 134 L (137-145) mmol/L BUN 33 H (9-20) mg/dL Glucose 100 H (74-99) mg/dL Total Bilirubin 1.4 H (0.2-1.3) mg/dL CK-MB (CK-2) (0.0-2.4) ng/mL Troponin I (0.000-0.034) ng/mL Assessment and Plan Plan: 1. Acute on chronic CHF exacerbation: Start patient on IV Lasix 40 mg every 8. Consult cardiology. Check 2-D echo. BNP elevated 5670. CTA of the chest noting congestive heart failure findings. Patient noncompliant with his home Lasix 2. Leukocytosis: consult infectious disease. Patient is known to Dr. Ayers 3. Elevated troponin 0.056. Patient denies chest pain. Continue to monitor cardiac enzymes. Await cardiology evaluation 4. Fall with left hip pain. No loss of consciousness. Check left x-ray. Patient has had previous orthopedic surgery to that left hip 5. History of Atrial fibrillation: anticoagulated with Coumadin. Continue digoxin and metoprolol for rate control 6. History of coronary artery disease with prior cardiac stents 2 7. Hyperlipidemia 8. Essential hypertension 9. Elevated d-dimer and CT of the chest negative for PE 10. Acute hypoxic respiratory failure secondary to CHF exacerbation. Patient currently on 2 L of oxygen GI prophylaxis Pepcid and DVT prophylaxis Coumadin
[2018-11-13] MEDS: WARFARIN 3 MG TAB PO SCH (17:33)
[2018-11-13] MEDS: ATORVASTATIN 10 MG TAB PO SCH (20:26)
[2018-11-13] MEDS ORDERED: AZITHROMYCIN 500 MG TAB PO STA (22:23)
[2018-11-13 23:20] LABS: Appearance,Urine Clear (Clear); Bilirubin,Urine Negative (Negative); Blood,Urine Negative (Negative); Color,Urine Light Yellow; Glucose,Urine (UA) Negative (Negative); Ketones,Urine Negative (Negative); Leukocyte Esterase,Urine Negative (Negative); Nitrite,Urine Negative (Negative); Protein,Urine Negative (Negative); Specific Gravity,Urine 1.009 (1.001-1.035); Urobilinogen,Urine <2.0 mg/dL (<2.0)
[2018-11-14] MEDS: FUROSEMIDE 10 MG/ML 4 ML VIAL IV SCH ×2 (00:03→09:31)
--- NOTE | 2018-11-14 01:34 | PN ---
PROGRESS NOTE DATE OF SERVICE: 11/13/2018. REASON FOR FOLLOWUP: Leukocytosis. INTERVAL HISTORY: The patient is currently afebrile. He is breathing comfortably. The patient has been complaining of having more cough and bringing up some sputum. The patient denies having any chest pain, though his breathing has improved. No abdominal pain and no diarrhea. EXAMINATION: The patient vital signs stable with a T-max is 98. General description is an elderly male up in the bed in no distress. Respiratory system: Unlabored breathing with coarse breath sounds at the base. No wheeze. Heart S1-S2 regular rate and rhythm. ABDOMEN: Soft, no tenderness. Extremities: No edema of the feet. LABS: The patient white count normalized to 10.5 and INR is 2.2. Creatinine is 1.17. DIAGNOSTIC IMPRESSION AND PLAN: Patient with leukocytosis with initial concern for possibly . However, the patient is now complaining of more cough and bringing up some sputum with concern for possible community acquired pneumonia. We will try to obtain a sputum. Repeat a chest x-ray in the morning. Add Rocephin and doxycycline. tomorrow. Continue supportive care. MMODL / IJN: [id number] /
--- NOTE | 2018-11-14 07:24 | XR ---
EXAMINATION TYPE: XR chest 2V DATE OF EXAM: 11/14/2018 COMPARISON: November 12, 2018 HISTORY: Shortness of breath TECHNIQUE: Frontal and lateral views of the chest are obtained. FINDINGS: Scattered senescent parenchymal changes noted. Hyperinflation compatible with COPD. Chronic elevation left hemidiaphragm. Patchy density right upper lobe may reflect developing infiltrate. Correlate clinically. Heart size is stable. Mediastinal structures are stable and grossly unremarkable. No evidence for hilar prominence. Degenerative changes dorsal spine. IMPRESSION: 1. Patchy density right upper lobe may reflect developing infiltrate. Correlate clinically.
[2018-11-14 07:51] LABS: Basophils # (A) 0.1 k/uL (0-0.2); Basophils % (A) 1 %; Eosinophils # (A) 0.6 k/uL (0-0.7); Eosinophils % (A) 7 %; HCT 41.5 % (39.0-53.0); HGB 13.6 gm/dL (13.0-17.5); Lymphocytes % (A) 11 %; MCH 31.6 pg (25.0-35.0); MCHC 32.8 g/dL (31.0-37.0); MCV 96.3 fL (80.0-100.0); Mean Platelet Volume 6.5; Monocytes # (A) 0.7 k/uL (0-1.0); Monocytes % (A) 8 %; Neutrophils # (A) 6.2 k/uL (1.3-7.7); Neutrophils % (A) 71 %; Platelet Count 262 k/uL (150-450); RBC 4.31 m/uL (4.30-5.90); RDW 14.1 % (11.5-15.5); WBC 8.7 k/uL (3.8-10.6)
[2018-11-14 08:03] LABS: INR 2.1 (<1.2); Prothrombin Time 20.9 sec (9.0-12.0)
[2018-11-14 08:06] LABS: Albumin 3.8 g/dL (3.5-5.0); Calcium 9.3 mg/dL (8.4-10.2); Total Bilirubin 1.3 mg/dL (0.2-1.3); Total Protein 6.7 g/dL (6.3-8.2)
[2018-11-14] MEDS: busPIRone HCl 5 MG TAB PO SCH ×2 (09:27→21:29)
[2018-11-14] MEDS: LISINOPRIL 5 MG TAB PO SCH (09:27)
[2018-11-14] MEDS: DOXYCYCLINE 100 MG CAP PO SCH ×2 (09:27→21:29)
[2018-11-14] MEDS: METOPROLOL TARTRATE 25 MG TAB PO SCH ×2 (09:29→21:29)
[2018-11-14] MEDS: SPIRONOLACTONE 25 MG TAB PO SCH (09:30)
[2018-11-14] MEDS: FAMOTIDINE 20 MG TAB PO SCH (09:30)
[2018-11-14] MEDS: ASPIRIN 81 MG PO SCH (09:31)
[2018-11-14] MEDS: DIGOXIN 125 MCG TAB PO SCH (09:31)
[2018-11-14] MEDS: BRIMONIDINE TARTRATE 0.2% DROPS 5 ML BTL RIGHT EYE SCH ×2 (09:31→21:29)
[2018-11-14] MEDS: DORZOLAMIDE HCL 2% DROPS 10 ML BTL RIGHT EYE SCH ×2 (09:32→21:29)
--- NOTE | 2018-11-14 10:31 | P.PN ---
Subjective Progress Note Date: 11/14/18 This is a 83-year-old male with a known past medical history of congestive heart failure, atrial fibrillation, hyperlipidemia, hypertension, coronary artery disease cardiac stents and pacemaker placement. Patient presents to the emergency room with chief complaint of worsening shortness of breath over the last 2 weeks. Patient reports last night he went to get up to go to the bathroom and did have a fall landing on his left hip. He is having difficulty getting up because he felt so weak and also increasing in shortness of breath. He made it back to his bed and was able to sleep at night. He woke up this morning again short of breath having difficulty even walking a few feet. and patient became concerned and called EMS and was brought into the hospital for further evaluation and treatment. Patient was found to have congestive heart failure. BNP was elevated in the 5000 CTA of the chest showing evidence of congestive heart failure. It revealed mild cardiomegaly with mild bilateral interstitial edema and small bilateral pleural effusions. No suspicious focal consolidation. CT findings are suggestive of right heart failure and underlying pulmonary artery hypertension. Patient started on IV Lasix 40 mg every 8 hours and cardiology has been placed on consult. Also note the patient was initially on Lasix oral twice a day. However he could not tolerate it because he had was urinating so much he cut back to once a day and still was urinating frequently. Patient stopped taking Lasix about a month ago on his own. Patient denies any chest pain, fever, chills, sweats, orthopnea, lower extremity swelling. Denies any bowel movement changes or urinary symptoms. Patient does admit to a chronic cough especially in the morning. Patient anticoagulated with Coumadin for atrial fibrillation. D-dimer was elevated at 35 CTA of chest negative for PE. Note that the troponin mildly elevated at 0.056 white count 13 and INR 2.3 On 11/13/2018 patient was seen and examined on the telemetry floor he is laying in bed comfortably he states that his shortness of breath has improved he is able to ambulate from his bed to the bathroom with the use of walker there is no fever or chills no headache or dizziness no chest pain no palpitation no cough no nausea or vomiting no abdominal pain no diarrhea and no urinary symptoms. On 11/14/2018 patient was seen and examined on the telemetry floor alert and oriented 3 in no apparent distress he is still complaining of shortness of breath with any activity he is complaining of cough with yellow sputum production otherwise he denies any complaints at this time there is no fever or chills no headache or dizziness no chest pain no nausea or vomiting no abdominal pain no diarrhea and no urinary symptoms. Objective - Vital Signs Vital signs: Vital Signs Temp 98.1 F 11/14/18 04:00 Pulse 60 11/14/18 04:00 Resp 20 11/14/18 04:00 BP 106/48 11/14/18 04:00 Pulse Ox 96 11/14/18 04:00 Intake & Output 11/13/18 11/14/18 11/14/18 18:59 06:59 18:59 Intake Total 1080 950 490 Output Total 700 Balance 1080 250 490 Weight 72 kg 70.3 kg Intake: Intake, IV Titration 650 100 Amount cefTRIAXone 1,000 mg In 650 100 Sodium Chloride 0.9% 50 ml @ 100 mls/hr IVPB HS [facility] Rx#:[id number] Oral 1080 300 390 Output: Urine 700 Other: Voiding Method Bedside Commode Urinal # Voids 1 1 - Exam Head normocephalic and atraumatic Neck supple no JVD no goiter Lungs diminished bilaterally ,patient is short of breath while talking Heart regular rate and rhythm S1-S2, no rub or gallop Abdomen is soft nontender nondistended positive bowel sounds no hepatosplenomegaly Extremities no edema no cyanosis or clubbing Neuro alert and orientated to 3 - Labs CBC & Chem 7: 11/14/18 07:11 11/14/18 07:11 Labs: Abnormal Lab Results - Last 24 Hours (Table) 11/14/18 11/14/18 Range/Units 07:11 07:11 PT 20.9 H (9.0-12.0) sec INR 2.1 H (<1.2) Sodium 134 L (137-145) mmol/L Chloride 97 L (98-107) mmol/L BUN 41 H (9-20) mg/dL Creatinine 1.42 H (0.66-1.25) mg/dL Assessment and Plan Plan: 1. Acute on chronic CHF exacerbation: Start patient on IV Lasix 40 mg every 8. Consult cardiology. Check 2-D echo. BNP elevated 5670. CTA of the chest noting congestive heart failure findings. Patient noncompliant with his home Lasix 2. Leukocytosis: consult infectious disease. Patient is known to Dr. Ayers 3. Elevated troponin 0.056. Patient denies chest pain. Continue to monitor cardiac enzymes. Await cardiology evaluation 4. Fall with left hip pain. No loss of consciousness. Check left x-ray. Patient has had previous orthopedic surgery to that left hip 5. History of Atrial fibrillation: anticoagulated with Coumadin. Continue digoxin and metoprolol for rate control 6. History of coronary artery disease with prior cardiac stents 2 7. Hyperlipidemia 8. Essential hypertension 9. Elevated d-dimer and CT of the chest negative for PE 10. Acute hypoxic respiratory failure secondary to CHF exacerbation. Patient currently on 2 L of oxygen GI prophylaxis Pepcid and DVT prophylaxis Coumadin
--- NOTE | 2018-11-14 12:05 | PN ---
PROGRESS NOTE Mr. Batista is an 83-year-old male who presented with symptoms of progressive dyspnea and cough. He has a history of persistent atrial fibrillation, permanent pacemaker implantation, history of coronary artery disease. He is feeling better today. His breathing is better. He denies any chest pain. He denies any dizziness. His cough is better. His peripheral edema has resolved. He denies any nausea or vomiting. He has a history of cardiomyopathy that was noted in the past. He continues to be on Lasix 40 mg IV q.8 hours, aspirin once a day, Lipitor 10 mg daily, digoxin 0.125 mg daily, Coumadin, losartan 12.5 mg daily and metoprolol tartrate 25 mg twice a day. PHYSICAL EXAMINATION: Blood pressure 106/40 with a heart in the 60s. LUNGS: Clear. Heart: Irregularly, irregular S1, S2. No S3 with systolic murmur. No rub. ABDOMEN: Soft, nontender. EXTREMITIES: No edema. LAB DATA: Revealed BUN and creatinine 41 and 1.42, potassium 4.0, INR of 2.1, hemoglobin 13.6. IMPRESSION: 1. Progressive dyspnea with a combination of upper respiratory infection and heart failure with a history of systolic dysfunction. 2. Atrial fibrillation, chronic, persistent, anticoagulated. 3. Permanent pacemaker implantation. 4. History of coronary artery disease. 5. Hypertension. 6. Hyperlipidemia. RECOMMENDATION: From the cardiac standpoint, I will switch him to oral diuretics. Continue the rest of the medication. Follow his renal function and depending on his progress, further recommendations will be made. MMODL / IJN: [id number] /
[2018-11-14] MEDS: CHOLECALCIFEROL 1,000 UNIT TAB PO SCH (12:13)
[2018-11-14] MEDS: LOSARTAN 25 MG TAB PO SCH (12:13)
[2018-11-14 15:25] VITALS: RESP 18
[2018-11-14] MEDS: WARFARIN 3 MG TAB PO SCH (17:13)
[2018-11-14] MEDS: ATORVASTATIN 10 MG TAB PO SCH (21:29)
--- NOTE | 2018-11-14 23:44 | PN ---
PROGRESS NOTE DATE OF SERVICE: 11/14/2018 REASON FOR FOLLOWUP: Pneumonia, community-acquired. INTERVAL HISTORY: The patient is currently afebrile. He is breathing more comfortably. The patient had decreased intensity, mostly dry in nature. No chest pain. No abdominal pain. No diarrhea. PHYSICAL EXAMINATION: Blood pressure 101/55 with a pulse of 68, temperature of 97.4. He is 97% on 2 L nasal cannula. General description is an elderly male lying in bed in no distress. Respiratory system: Unlabored breathing, decreased breath sounds in the bases. No wheeze. Heart S1, S2. Regular rate and rhythm. Abdomen soft, no tenderness. LABS: Hemoglobin 13.1, white count 8.7, creatinine slightly elevated 1.42. UA has been negative. Sputum collected, cultures currently pending. The patient did have a chest x-ray completed this morning with evidence of right upper lobe pneumonia. DIAGNOSTIC IMPRESSION AND PLAN: Patient with leukocytosis in a patient who did have a cough, sputum production with evidence of right upper lobe pneumonia likely community-acquired. Sputum cultures currently pending. The patient seemed to have shown clinical improvement on the Rocephin and to continue. May need to cut down the dose of Lasix in view of slight jump in his creatinine and monitor clinical course closely. Continue supportive care. MMODL / IJN: [id number] /
[2018-11-15 04:41] VITALS: PULSE 60
[2018-11-15 06:06] LABS: INR 2.3 (<1.2); Prothrombin Time 21.9 sec (9.0-12.0)
[2018-11-15 06:09] LABS: Basophils # (A) 0.1 k/uL (0-0.2); Basophils % (A) 1 %; Eosinophils # (A) 0.6 k/uL (0-0.7); Eosinophils % (A) 7 %; HCT 40.6 % (39.0-53.0); HGB 13.3 gm/dL (13.0-17.5); Lymphocytes # (A) 1.1 k/uL (1.0-4.8); Lymphocytes % (A) 13 %; MCH 31.7 pg (25.0-35.0); MCHC 32.7 g/dL (31.0-37.0); MCV 96.9 fL (80.0-100.0); Mean Platelet Volume 7.1; Monocytes # (A) 0.8 k/uL (0-1.0); Monocytes % (A) 10 %; Neutrophils # (A) 5.2 k/uL (1.3-7.7); Neutrophils % (A) 65 %; Platelet Count 239 k/uL (150-450); RBC 4.19 m/uL (4.30-5.90); RDW 13.9 % (11.5-15.5); WBC 8.1 k/uL (3.8-10.6)
[2018-11-15 06:10] LABS: Albumin 3.2 g/dL (3.5-5.0); Calcium 9.1 mg/dL (8.4-10.2); Total Bilirubin 1.1 mg/dL (0.2-1.3)
[2018-11-15] MEDS ORDERED: FUROSEMIDE 20 MG TAB PO SCH (09:00)
[2018-11-15 09:01] VITALS: TEMP 97.9
[2018-11-15] MEDS: DOXYCYCLINE 100 MG CAP PO SCH (09:01)
[2018-11-15] MEDS: DIGOXIN 125 MCG TAB PO SCH (09:01)
[2018-11-15] MEDS: METOPROLOL TARTRATE 25 MG TAB PO SCH (09:01)
[2018-11-15] MEDS: ASPIRIN 81 MG PO SCH (09:01)
[2018-11-15] MEDS: LOSARTAN 25 MG TAB PO SCH (09:02)
[2018-11-15] MEDS: busPIRone HCl 5 MG TAB PO SCH (09:02)
[2018-11-15] MEDS: FAMOTIDINE 20 MG TAB PO SCH (09:03)
[2018-11-15] MEDS: DORZOLAMIDE HCL 2% DROPS 10 ML BTL RIGHT EYE SCH (09:03)
[2018-11-15] MEDS: BRIMONIDINE TARTRATE 0.2% DROPS 5 ML BTL RIGHT EYE SCH (09:03)
[2018-11-15] MEDS: SPIRONOLACTONE 25 MG TAB PO SCH (09:06)
[2018-11-15 11:15] VITALS: BP 127/59
[2018-11-15] MEDS: CHOLECALCIFEROL 1,000 UNIT TAB PO SCH (12:24)
--- NOTE | 2018-11-15 13:51 | P.PN ---
Subjective Progress Note Date: 11/15/18 This is a pleasant 83-year-old gentleman who follows regularly with Dr. Dietz in the office. He has a known history of hyperlipidemia, hypertension, coronary artery disease with prior stent placements, prior pacemaker implantation, persistent atrial fibrillation, prior congestive heart failure. He presents to the hospital with symptoms of progressively worsening shortness of breath with associated wheezing, he states that he's also progressively been more weak and tired at home. According to the patient, he also experienced a fall, secondary to his legs being extremely weak. For these reasons she came to the emergency room for further evaluation. His initial chest x-ray on arrival here did not reveal any evidence for acute pulmonary disease. CTA of the chest did not reveal evidence for acute pulmonary embolism. Findings consistent with CHF exacerbation, mild cardiomegaly with mild bilateral interstitial edema and small bilateral pleural effusions. Left hip x-ray was performed which did not reveal any fracture. An echocardiogram with Doppler study was performed which revealed an ejection fraction of 30-35%, moderate to severe MR, moderate to severe TR, blood pressure on arrival here 140 /50 with a heart rate in the 60s, 91% on 3 L of oxygen. Blood pressure this morning 158/70 with a heart rate in the 60s, 94% on 4 L of oxygen. White blood cell count on admission 13.0, 10.5 this morning, hemoglobin 13.5, platelet count 237. INR 2.2, sodium 134, potassium 4.4, BUN 33 and creatinine 1.1. Troponins 0.05, 0.07, 0.07. BNP level 5670. Dig 0.9. At the time of my examination this morning, patient still complains of feeling short of breath. He does state that he coughed up a significant amount of yellow sputum earlier this morning. 11/15/2018 Patient diuresed well on IV Lasix. Currently on oral diuretics. Overall the patient feels significantly better today. He still has some wheezing in the lungs however overall he feels well. White blood cell count 8.1, hemoglobin 13.3, platelet count 239. INR today 2.3, sodium 132, potassium 4.0, BUN 43 and creatinine 1.3. Objective - Vital Signs Vital signs: Vital Signs Temp 97.9 F 11/15/18 11:15 Pulse 60 11/15/18 11:15 Resp 18 11/15/18 11:15 BP 127/59 11/15/18 11:15 Pulse Ox 97 11/15/18 11:15 Intake & Output 11/14/18 11/15/18 11/15/18 18:59 06:59 18:59 Intake Total 1790 590 960 Output Total 1200 Balance 1790 590 -240 Weight 70.2 kg Intake: IV 10 Invasive Line 1 10 Intake, IV Titration 200 100 Amount cefTRIAXone 1,000 mg In 200 100 Sodium Chloride 0.9% 50 ml @ 100 mls/hr IVPB HS [facility] Rx#:[id number] Oral 1590 480 960 Output: Urine 1200 Other: Voiding Method Bedside Commode Urinal # Voids 3 1 - Exam PHYSICAL EXAMINATION: GENERAL: 83-year-old gentleman in no acute distress at the time of my examination HEENT: Head is atraumatic, normocephalic. Pupils equal, round. Sclera anicteric. Conjunctiva are clear. Mucous membranes of the mouth are moist. Neck is supple. There is no elevated jugular venous pressure. No carotid bruit is heard. HEART EXAMINATION: Heart S1 and S2 with systolic murmur is heard. CHEST EXAMINATION: Lungs reveal scattered wheezing throughout. ABDOMEN: Soft, nontender. Bowel sounds are heard. No organomegaly noted. EXTREMITIES: 2+ peripheral pulses with no evidence of peripheral edema and no calf tenderness noted. NEUROLOGIC patient is awake, alert and oriented 3 . . - Labs CBC & Chem 7: 11/15/18 05:27 11/15/18 05:27 Labs: Abnormal Lab Results - Last 24 Hours (Table) 11/15/18 11/15/18 11/15/18 Range/Units 05:27 05:27 05:27 RBC 4.19 L (4.30-5.90) m/uL PT 21.9 H (9.0-12.0) sec INR 2.3 H (<1.2) Sodium 132 L (137-145) mmol/L BUN 43 H (9-20) mg/dL Creatinine 1.30 H (0.66-1.25) mg/dL Total Protein 6.0 L (6.3-8.2) g/dL Albumin 3.2 L (3.5-5.0) g/dL Microbiology - Last 24 Hours (Table) 11/14/18 16:25 Gram Stain - Preliminary Sputum Sputum Culture - Preliminary Assessment and Plan Plan: Assessment and plan #1 systolic congestive heart failure acute on chronic, echocardiogram with Doppler study was performed which revealed an ejection fraction of 30-35%, inferior, apical, septal hypokinesia. Moderate to severe mitral regurgitation and moderate to severe tricuspid regurg with moderate pulmonary hypertension noted. #2 chronic persistent atrial fibrillation, anticoagulated with Coumadin #3 hypertension #4 hyperlipidemia #5 known coronary artery disease with prior RCA stents #6 prior pacemaker implantation #7 abnormal troponins, not consistent with acute coronary syndrome, could be secondary to supply and demand mismatch. #8 possible tracheobronchitis Plan From cardiology's perspective, we'll recommend to continue the patient on his current medications. He may be able to be discharged once cleared by primary, a follow-up appointment in the office post discharge. DNP note has been reviewed, I agree with a documented findings and plan of care. Patient was seen and examined.
--- NOTE | 2018-11-15 14:00 | PN ---
PROGRESS NOTE DATE OF SERVICE: 11/15/2018 REASON FOR FOLLOWUP: Pneumonia, possibly community-acquired. INTERVAL HISTORY: The patient is currently afebrile. He is breathing comfortably. Denies having any chest pain, shortness of breath or cough. No abdominal pain or any diarrhea. PHYSICAL EXAMINATION: Blood pressure 127/59 with a pulse of 60, temperature 97.9. He is 98% on room air. General description is an elderly male, up in the bed in no distress. RESPIRATORY SYSTEM: Unlabored breathing with decreased breath sounds at the bases, no wheeze. HEART: S1, S2. Regular rate and rhythm. ABDOMEN: Soft, no tenderness. LABS: White count of 8.1, creatinine 2.3. Sputum culture currently pending. DIAGNOSTIC IMPRESSION AND PLAN: Patient with shortness of breath, more likely multifactorial. Did have a component of pneumonia, possible community-acquired. Patient responded to the Rocephin finish therapy with oral Ceftin 500 mg twice a day for the 5 days with close outpatient followup. Continue supportive care. MMLUPEL / SARAHIN: [id number] /
--- NOTE | 2018-11-15 15:04 | P.DS ---
Providers Date of admission: 11/12/18 11:56 Expected date of discharge: 11/15/18 Attending physician: Jean Gutierrez Consults: 11/12/18 11:56 Consult Physician Routine Consulting Provider: Jose C Dietz Consult Reason/Comments: chf Do you want consulting provider notified?: Yes 11/12/18 14:48 Consult Physician Routine Consulting Provider: Martita Ayers Consult Reason/Comments: leukocytosis Do you want consulting provider notified?: Yes Primary care physician: Martita Ayers Hospital Course: Discharge diagnosis 1. Acute on chronic systolic CHF exacerbation: Patient initially started on IV Lasix and switch over to oral Lasix 20 mg daily. Echo shows an EF of 30-35%, inferior, apical, septal hypokinesia. Moderate to severe mitral regurgitation and moderate to severe tricuspid regurgitation with moderate pulmonary hypertension noted. BNP elevated 5670. CTA of the chest noting congestive heart failure findings. Patient noncompliant with his home Lasix 2. Possible Community-acquired pneumonia: Infectious diseases recommending 5 more days of Ceftin 3. Abnormal troponins, not consistent with acute coronary syndrome, could be secondary to supply and demand mismatch per cardiology 4. Fall with left hip pain. No loss of consciousness. Check left x-ray. Patient has had previous orthopedic surgery to that left hip 5. History of chronic persistent Atrial fibrillation: anticoagulated with Coumadin. Continue digoxin and metoprolol for rate control 6. History of coronary artery disease with prior cardiac stents 2 7. Hyperlipidemia 8. Essential hypertension 9. Elevated d-dimer and CT of the chest negative for PE 10. Acute hypoxic respiratory failure secondary to CHF exacerbation. 11. Acute kidney injury likely related to diuretics. Creatinine has improved from 1.42-1.30. We will check a BMP in 2 days to monitor kidney function closely in outpatient setting while on Lasix 20 mg daily. Hospital course This is a 83-year-old male with a known past medical history of congestive heart failure, atrial fibrillation, hyperlipidemia, hypertension, coronary artery disease cardiac stents and pacemaker placement. Patient presents to the emergency room with chief complaint of worsening shortness of breath over the last 2 weeks. Patient reports last night he went to get up to go to the bathroom and did have a fall landing on his left hip. He is having difficulty getting up because he felt so weak and also increasing in shortness of breath. He made it back to his bed and was able to sleep at night. He woke up this morning again short of breath having difficulty even walking a few feet. and patient became concerned and called EMS and was brought into the hospital for further evaluation and treatment. Patient was found to have congestive heart failure. BNP was elevated in the 5000 CTA of the chest showing evidence of congestive heart failure. It revealed mild cardiomegaly with mild bilateral interstitial edema and small bilateral pleural effusions. No suspicious focal consolidation. CT findings are suggestive of right heart failure and underlying pulmonary artery hypertension. Patient started on IV Lasix 40 mg every 8 hours and cardiology has been placed on consult. Also note the patient was initially on Lasix oral twice a day. However he could not tolerate it because he had was urinating so much he cut back to once a day and still was urinating frequently. Patient stopped taking Lasix about a month ago on his own. Patient denies any chest pain, fever, chills, sweats, orthopnea, lower extremity swelling. Denies any bowel movement changes or urinary symptoms. Patient does admit to a chronic cough especially in the morning. Patient anticoagulated with Coumadin for atrial fibrillation. D-dimer was elevated at 35 CTA of chest negative for PE. Note that the troponin mildly elevated at 0.056 white count 13 and INR 2.3 On 11/13/2018 patient was seen and examined on the telemetry floor he is laying in bed comfortably he states that his shortness of breath has improved he is able to ambulate from his bed to the bathroom with the use of walker there is no fever or chills no headache or dizziness no chest pain no palpitation no cough no nausea or vomiting no abdominal pain no diarrhea and no urinary symptoms. On 11/14/2018 patient was seen and examined on the telemetry floor alert and oriented 3 in no apparent distress he is still complaining of shortness of breath with any activity he is complaining of cough with yellow sputum production otherwise he denies any complaints at this time there is no fever or chills no headache or dizziness no chest pain no nausea or vomiting no abdominal pain no diarrhea and no urinary symptoms. 11/15/2018 shortness of breath has improved. They were able to remove the oxygen he ambulates on room air satting at 97%. Cardiology has cleared her for discharge the recommending to continue the Lasix 20 mg daily. They'll follow up with him in the office. Patient is also being treated for possible pneumonia and will continue Ceftin 5 more days per infectious disease. Creatinine at discharge is 1.30. Recommend repeating BMP in 2 days with home care service to monitor kidney function closely. Lasix 20 mg daily is a new medication has added during this admission patient is also on a small dose LATHA inhibitor. Patient is medically stable for discharge and has been cleared by multi site leasing consultant physicians. Please refer to chart for any further details. I performed an examination of the patient and discussed their management with the physician Telesales Representative. I have reviewed the Physician Telesales Representative's notes and agree with the documented findings and plan of care Patient Condition at Discharge: Stable Plan - Discharge Summary Discharge Rx Participant: No New Discharge Prescriptions: New Aspirin 81 mg PO DAILY #30 chew Furosemide [Lasix] 20 mg PO DAILY #30 tab Cefuroxime Axetil [Ceftin] 500 mg PO BID #10 tab Continue Metoprolol Tartrate 25 mg PO BID Brinzolamide/Brimonidine Tart [Simbrinza 1%-0.2% Eye Drops] 1 drop RIGHT EYE BID Simvastatin [Zocor] 20 mg PO HS Enalapril [Vasotec] 2.5 mg PO QAM Spironolactone [Aldactone] 12.5 mg PO DAILY Digoxin [Lanoxin] 125 mcg PO DAILY busPIRone HCL [Buspar] 7.5 mg PO BID Cholecalciferol [Vitamin D3] 5,000 unit PO DAILY Warfarin Sodium 3 mg PO SUSA Warfarin Sodium 4 mg PO MOTUWETHFR Discharge Medication List Brinzolamide/Brimonidine Tart [Simbrinza 1%-0.2% Eye Drops] 1 drop RIGHT EYE BID 12/11/15 [History] Digoxin [Lanoxin] 125 mcg PO DAILY 12/11/15 [History] Enalapril [Vasotec] 2.5 mg PO QAM 12/11/15 [History] Metoprolol Tartrate 25 mg PO BID 12/11/15 [History] Simvastatin [Zocor] 20 mg PO HS 12/11/15 [History] Spironolactone [Aldactone] 12.5 mg PO DAILY 12/11/15 [History] Cholecalciferol [Vitamin D3] 5,000 unit PO DAILY 11/12/18 [History] Warfarin Sodium 3 mg PO SUSA 11/12/18 [History] Warfarin Sodium 4 mg PO MOTUWETHFR 11/12/18 [History] busPIRone HCL [Buspar] 7.5 mg PO BID 11/12/18 [History] Aspirin 81 mg PO DAILY #30 chew 11/15/18 [Rx] Cefuroxime Axetil [Ceftin] 500 mg PO BID #10 tab 11/15/18 [Rx] Furosemide [Lasix] 20 mg PO DAILY #30 tab 11/15/18 [Rx] Follow up Appointment(s)/Referral(s): Jose C Dietz MD [STAFF PHYSICIAN] - 1 Week [facility], [NON-STAFF] - Martita Ayers MD [Primary Care Provider] - 11/22/18 2:45 pm ([phone] Thursday. [facility]) Ambulatory/Diagnostic Orders: Basic Metabolic Panel [LAB.AMB] Time Frame: 2 Days, Location: None Selected Patient Instructions/Handouts: Heart Failure (DC) Activity/Diet/Wound Care/Special Instructions: Diet: cardiac Activity: as tolerated Discharge Disposition: HOME WITH HOME HEALTH SERVICES
[2018-11-15] MEDS ORDERED: WARFARIN 2 MG TAB PO SCH (18:00)
== END 2018-11-15 15:57 | disposition home health service (06) | DRG 291 ==
LOC: EC 08:19 → 3SCARD 11:56
PROVIDERS: ADMIT Internal Medicine; ATTEND Internal Medicine
DX: I11.0 Hypertensive heart disease with heart failure (principal); J96.01 Acute respiratory failure with hypoxia; J18.9 Pneumonia, unspecified organism; I48.1 Persistent atrial fibrillation; N17.9 Acute kidney failure, unspecified; I50.23 Acute on chronic systolic (congestive) heart failure; I27.20 Pulmonary hypertension, unspecified; G62.9 Polyneuropathy, unspecified; I08.1 Rheumatic disorders of both mitral and tricuspid valves; E78.5 Hyperlipidemia, unspecified; H40.9 Unspecified glaucoma; I25.10 Atherosclerotic heart disease of native coronary artery without angina pectoris; N40.0 Benign prostatic hyperplasia without lower urinary tract symptoms; R79.1 Abnormal coagulation profile; T50.2X5A Adverse effect of carbonic-anhydrase inhibitors, benzothiadiazides and other diuretics, initial encounter; M25.552 Pain in left hip; R77.9 Abnormality of plasma protein, unspecified; M15.9 Polyosteoarthritis, unspecified; Z79.01 Long term (current) use of anticoagulants; Z79.899 Other long term (current) drug therapy; Z96.642 Presence of left artificial hip joint; Z95.5 Presence of coronary angioplasty implant and graft; Z95.0 Presence of cardiac pacemaker; Z91.19 Patient's noncompliance with other medical treatment and regimen; Z87.891 Personal history of nicotine dependence; Z85.828 Personal history of other malignant neoplasm of skin; Z98.42 Cataract extraction status, left eye; Z98.41 Cataract extraction status, right eye; Z96.1 Presence of intraocular lens; Z80.3 Family history of malignant neoplasm of breast; Z82.49 Family history of ischemic heart disease and other diseases of the circulatory system; Z83.3 Family history of diabetes mellitus
CPT/HCPCS: 36415; 71046; 71275; 73502; 80053; 80162; 81003; 82550; 82553; 83880; 84484; 85025; 85379; 85610; 85730; 87070; 87205; 93005; 93306; 94640; 96374; 99285

== ENCOUNTER 2019-10-17 02:22 | Observation (INO) | payer MEDICARE ==
[2019-10-17] MEDS ORDERED: methylPREDNISolone SOD SUCCI 125 MG/2 ML VIAL IV STA (03:05)
[2019-10-17] MEDS ORDERED: SODIUM CHLORIDE 0.9% 500 ML 500 ML IV STA (03:05)
[2019-10-17] MEDS ORDERED: IPRATROPIUM-ALBUTEROL 3 ML NEB INHALATION STA (03:05)
[2019-10-17 03:18] LABS: Basophils # (A) 0.1 k/uL (0-0.2); Basophils % (A) 1 %; Eosinophils # (A) 0.4 k/uL (0-0.7); Eosinophils % (A) 4 %; HCT 35.7 % (39.0-53.0); HGB 11.9 gm/dL (13.0-17.5); Lymphocytes # (A) 1.2 k/uL (1.0-4.8); Lymphocytes % (A) 13 %; MCHC 33.3 g/dL (31.0-37.0); MCV 99.1 fL (80.0-100.0); Macrocytosis Slight; Mean Platelet Volume 7.2; Monocytes # (A) 0.8 k/uL (0-1.0); Monocytes % (A) 9 %; Neutrophils # (A) 6.2 k/uL (1.3-7.7); Neutrophils % (A) 69 %; Platelet Count 470 k/uL (150-450); Poikilocytosis Slight; RDW 15.1 % (11.5-15.5); WBC 8.9 k/uL (3.8-10.6)
[2019-10-17 03:23] LABS: Albumin 3.2 g/dL (3.5-5.0); Calcium 8.9 mg/dL (8.4-10.2); Magnesium 1.9 mg/dL (1.6-2.3); Potassium 4.4 mmol/L (3.5-5.1); Total Bilirubin 0.8 mg/dL (0.2-1.3); Total Protein 5.9 g/dL (6.3-8.2)
--- NOTE | 2019-10-17 03:23 | XR ---
EXAMINATION TYPE: XR chest 2V DATE OF EXAM: 10/17/2019 COMPARISON: November 14, 2018 HISTORY: Difficulty breathing TECHNIQUE: FINDINGS: There is no heart failure. There is slight blunting right costophrenic angle. Heart is slig htly enlarged. There is a left axillary pacemaker. There is mild coarsening of the lung markings. IMPRESSION: Small right pleural effusion is new compared to old exam. No heart failure. Mild pulmonar y fibrosis.
[2019-10-17 03:31] LABS: INR 1.1 (<1.2); Prothrombin Time 11.1 sec (9.0-12.0)
[2019-10-17] MEDS ORDERED: FUROSEMIDE 10 MG/ML 4 ML VIAL IV STA (03:52)
--- NOTE | 2019-10-17 03:52 | ED ---
SOB HPI - General Chief Complaint: Shortness of Breath Stated Complaint: SOB Time Seen by Provider: 10/17/19 02:42 Source: patient, EMS Mode of arrival: EMS Limitations: physical limitation - History of Present Illness Initial Comments: Dino is an 84-year-old gentleman with history of CHF and COPD who presents the ER today via EMS for evaluation of worsening shortness breath. Patient reports he felt mildly short of breath for couple of days however tonight he couldn't catch his breath at all which prompted him to call EMS. EMS reports they arrive d on scene to find the patient moderate respiratory distress oxygen saturation saturations in the mid 80s he was wheezing in all lung beltran and was given an updraft breathing treatment and route to the hospital. He did mild improvement after breathing treatment and oxygen saturations had improved to the low 90s on 2 L nasal cannula. The patient denies any chest pain or palpitations. He does not wear oxygen at home. He does not have a mac artist. He follows with Dr. Dietz cardiology. - Related Data Home Medications Medication Instructions Recorded Confirmed Brinzolamide/Brimonidine Tart 1 drop BOTH EYES BID 12/11/15 05/23/19 [Simbrinza 1%-0.2% Eye Drops] Digoxin [Lanoxin] 125 mcg PO DAILY 12/11/15 05/23/19 Enalapril [Vasotec] 2.5 mg PO QAM 12/11/15 05/23/19 Metoprolol Tartrate 25 mg PO BID 12/11/15 05/23/19 Simvastatin [Zocor] 20 mg PO HS 12/11/15 05/23/19 Cholecalciferol [Vitamin D3 (25 5,000 unit PO DAILY 11/12/18 05/23/19 Mcg = 1000 Iu)] Warfarin Sodium 4 mg PO HS 11/12/18 05/23/19 busPIRone HCL [Buspar] 7.5 mg PO BID 11/12/18 05/23/19 Previous Rx's Medication Instructions Recorded Cyclobenzaprine [Flexeril] 5 mg PO TID PRN 3 Days #9 tab 05/27/19 oxyCODONE-APAP 5-325MG [Percocet 1 each PO Q4HR PRN 3 Days #12 tab 05/27/19 5-325 mg] Allergies Allergy/AdvReac Type Severity Reaction Status Date / Time No Known Allergies Allergy Verified 05/23/19 07:41 Review of Systems ROS Statement: Those systems with pertinent positive or pertinent negative responses have been documented in the HPI. ROS Other: All systems not noted in ROS Statement are negative. Past Medical History Past Medical History: Atrial Fibrillation, Coronary Artery Disease (CAD), Eye Disorder, Hyperlipidemia, Hypertension, Osteoarthritis (OA) Additional Past Medical History / Comment(s): Cardiomyopathy, arthritis multiple joints, neuropathy bilateral hands/legs/feet, BPH with frequent night time urination, glaucoma bilateral eyes, skin cancer removed from scalp. History of Any Multi-Drug Resistant Organisms: None Reported Past Surgical History: Back Surgery, Heart Catheterization With Stent, Hernia Repair, Orthopedic Surgery, Pacemaker Additional Past Surgical History / Comment(s): PCI with 2 stents, pacemaker lt chest-[employer] mod # [id number] serial #[id number]- [employer] 4137-has card, total lt hip, cervical [id number] surgery, lumbar 3-5 disc repair- hardware present,aleksandra carpel tunnel, aleksandra cataracts removed/lens implants, a bdominal hernia repair, colonoscopy. Past Anesthesia/Blood Transfusion Reactions: No Reported Reaction Additional Past Anesthesia/Blood Transfusion Reaction / Comment(s): no hx blood transfusion Date of Last Stent Placement:: 11-29-2012 Type of Cardiac Device: Permanent Pacemaker Device Placement Date:: 12-01-2012 Past Psychological History: No Psychological Hx Reported Smoking Status: Former smoker Past Alcohol Use History: Occasional Past Drug Use History: None Reported - Past Family History Mother Family Medical History: Cancer, Myocardial Infarction ([place]) Additional Family Medical History / Comment(s): breast ca Father Family Medical History: No Reported History, Diabetes Mellitus Additional Family Medical History / Comment(s): at age 94 Brother(s) Family Medical History: Congestive Heart Failure (CHF) Additional Family Medical History / Comment(s): heart valve replacement General Exam - General Exam Comments Initial Comments: Physical Exam GENERAL: Elderly gentleman in no acute distress HENT: Normocephalic, Atraumatic. EYES: PERRL, EOMI PULMONARY: Wheezing in all lung beltran, crackles at the bases CARDIOVASCULAR: Regular rate and rhythm Systolic murmur ABDOMEN: Soft and nontender with normal bowel sounds. SKIN: Skin is clear with no lesions or rashes and otherwise unremarkable. : Deferred NEUROLOGIC: Patient is alert and oriented x3. Moving all extremities spontaneously MUSCULOSKELETAL: Normal extremities with adequate strength and full range of motion. PSYCHIATRIC: Normal psychiatric evaluation. Limitations: physical limitation Course Vital Signs 10/17/19 10/17/19 10/17/19 02:27 03:05 03:36 Temperature 97.9 F Pulse Rate 63 61 Respiratory 22 22 18 Rate Blood Pressure 167/75 148/80 O2 Sat by Pulse 93 L 100 Oximetry 10/17/19 10/17/19 10/17/19 03:38 03:49 05:30 Temperature Pulse Rate 60 61 60 Respiratory 20 Rate Blood Pressure 144/67 O2 Sat by Pulse 99 Oximetry Medical Decision Making - Medical Decision Making Patient was seen and evaluated on arrival to the emergency department patient had presented with wheezing and shortness of breath that was worse tonight than it had been. Patient improved somewhat with DuoNeb's. On physical exam patient is well-appearing and only mild respiratory distress oxygen saturation 96% on 2 L he does not wear home O2 next and labs and imaging ordered EKG was obtained due to complaint of shortness breath and an elderly male, EKG was obtained at 2:30 AM, rate is 61 rhythm is ventricularly paced, QRS 160, Q to see for [address] elevations or depressions no evidence of acute ischemia or infarction Labs consistent with acute kidney injury and CHF exacerbation Care was discussed with Dr. Mcmahan who is covering for Dr. Gutierrez, agrees with plan for admission for CHF and COPD exacerbation. Request the patient be admitted Dr. Gutierrez who returned to the hospitalist morning. - Lab Data Result diagrams: 10/17/19 02:32 10/17/19 02:32 Lab Results 10/17/19 10/17/19 10/17/19 Range/Units 02:32 02:32 02:32 WBC 8.9 (3.8-10.6) k/uL RBC 3.60 L (4.30-5.90) m/uL Hgb 11.9 L (13.0-17.5) gm/dL Hct 35.7 L (39.0-53.0) % MCV 99.1 (80.0-100.0) fL MCH 33.0 (25.0-35.0) pg MCHC 33.3 (31.0-37.0) g/dL RDW 15.1 (11.5-15.5) % Plt Count 470 H (150-450) k/uL Neutrophils % 69 % Lymphocytes % 13 % Monocytes % 9 % Eosinophils % 4 % Basophils % 1 % Neutrophils # 6.2 (1.3-7.7) k/uL Lymphocytes # 1.2 (1.0-4.8) k/uL Monocytes # 0.8 (0-1.0) k/uL Eosinophils # 0.4 (0-0.7) k/uL Basophils # 0.1 (0-0.2) k/uL Poikilocytosis Slight Macrocytosis Slight PT (9.0-12.0) sec INR (<1.2) APTT (22.0-30.0) sec Sodium 132 L (137-145) mmol/L Potassium 4.4 (3.5-5.1) mmol/L Chloride 101 (98-107) mmol/L Carbon Dioxide 22 (22-30) mmol/L Anion Gap 9 mmol/L BUN 32 H (9-20) mg/dL Creatinine 1.36 H (0.66-1.25) mg/dL Est GFR (CKD-EPI)AfAm 55 (>60 ml/min/1.73 sqM) Est GFR (CKD-EPI)NonAf 47 (>60 ml/min/1.73 sqM) Glucose 94 (74-99) mg/dL Calcium 8.9 (8.4-10.2) mg/dL Magnesium 1.9 (1.6-2.3) mg/dL Total Bilirubin 0.8 (0.2-1.3) mg/dL AST 46 (17-59) U/L ALT 32 (4-49) U/L Alkaline Phosphatase 111 (38-126) U/L Troponin I (0.000-0.034) ng/mL NT-Pro-B Natriuret Pep 9800 pg/mL Total Protein 5.9 L (6.3-8.2) g/dL Albumin 3.2 L (3.5-5.0) g/dL 10/17/19 10/17/19 Range/Units 02:32 02:32 WBC (3.8-10.6) k/uL RBC (4.30-5.90) m/uL Hgb (13.0-17.5) gm/dL Hct (39.0-53.0) % MCV (80.0-100.0) fL MCH (25.0-35.0) pg MCHC (31.0-37.0) g/dL RDW (11.5-15.5) % Plt Count (150-450) k/uL Neutrophils % % Lymphocytes % % Monocytes % % Eosinophils % % Basophils % % Neutrophils # (1.3-7.7) k/uL Lymphocytes # (1.0-4.8) k/uL Monocytes # (0-1.0) k/uL Eosinophils # (0-0.7) k/uL Basophils # (0-0.2) k/uL Poikilocytosis Macrocytosis PT 11.1 (9.0-12.0) sec INR 1.1 (<1.2) APTT 30.0 (22.0-30.0) sec Sodium (137-145) mmol/L Potassium (3.5-5.1) mmol/L Chloride (98-107) mmol/L Carbon Dioxide (22-30) mmol/L Anion Gap mmol/L BUN (9-20) mg/dL Creatinine (0.66-1.25) mg/dL Est GFR (CKD-EPI)AfAm (>60 ml/min/1.73 sqM) Est GFR (CKD-EPI)NonAf (>60 ml/min/1.73 sqM) Glucose (74-99) mg/dL Calcium (8.4-10.2) mg/dL Magnesium (1.6-2.3) mg/dL Total Bilirubin (0.2-1.3) mg/dL AST (17-59) U/L ALT (4-49) U/L Alkaline Phosphatase (38-126) U/L Troponin I 0.069 H* (0.000-0.034) ng/mL NT-Pro-B Natriuret Pep pg/mL Total Protein (6.3-8.2) g/dL Albumin (3.5-5.0) g/dL Disposition Clinical Impression: Congestive heart failure, COPD (chronic obstructive pulmonary disease) Disposition: ADMITTED IP TO THIS [facility] Condition: Stable
[2019-10-17] MEDS ORDERED: IPRATROPIUM-ALBUTEROL 3 ML NEB INHALATION PRN (04:31)
[2019-10-17] MEDS ORDERED: ASPIRIN 81 MG PO STA (04:35)
[2019-10-17 05:02] LABS: Glucose,Whole Blood 109 mg/dL (75-99)
[2019-10-17] MEDS ORDERED: predniSONE 20 MG TAB PO SCH (09:00)
[2019-10-17] MEDS ORDERED: DIGOXIN 125 MCG TAB PO SCH (09:00)
[2019-10-17] MEDS: INSULIN ASPART (NovoLOG) 100 UNIT/ML VIAL SQ SCH ×4 (09:23→20:21)
[2019-10-17] MEDS: LISINOPRIL 5 MG TAB PO SCH (10:29)
[2019-10-17] MEDS: APIXABAN 2.5 MG TABLET PO SCH ×2 (10:29→20:00)
--- NOTE | 2019-10-17 12:00 | ECHOF ---
Referral Reason:chf exacerbation MEASUREMENTS -------- HEIGHT: 177.8 cm WEIGHT: 74.8 kg BP: 144/67 RVIDd: 4.1 cm (< 3.3) IVSd: 1.5 cm (0.6 - 1.1) LVIDd: 5.2 cm (3.9 - 5.3) LVPWd: 1.3 cm (0.6 - 1.1) IVSs: 1.7 cm LVIDs: 3.3 cm LVPWs: 1.8 cm LAESV Index (A-L): 57.02 ml/m Ao Diam: 2.7 cm (2.0 - 3.7) AV Cusp: 0.9 cm (1.5 - 2.6) LA Diam: 5.0 cm (2.7 - 3.8) MV EXCURSION: 17.009 mm (> 18.000) MV EF SLOPE: 89 mm/s (70 - 150) EPSS: 1.2 cm AV maxP.99 mmHg AV meanP.60 mmHg RAP: 5.00 mmHg RVSP: 60.32 mmHg FINDINGS -------- Atrial fibrillation. This was a technically good study. The left ventricular size is normal. There is moderate concentric left ventricular hypertrophy. O verall left ventricular systolic function is normal with, an EF between 55 - 60 %. Septal wall pedro on is delayed and consistent with prior cardiac surgery. The right ventricle is moderately enlarged. LA is severely dilated >40 ml/m2 The right atrium is mildly enlarged. Electronic pacemaker lead seen in the right atrial cavity. Interatrial and interventricular septum intact. There is no evidence of aortic regurgitation. There is mild aortic stenosis present. Peak/mean gr adient across the Aortic Valve is 30.99mmHg / 18.60mmHg. Moderate mitral annular calcification present. [id number] mitral regurgitation is present. Moderate to severe tricuspid regurgitation present. There is moderate to severe pulmonary hypertens ion. The right ventricular systolic pressure, as measured by Doppler, is 60.32mmHg. The aortic root size is normal. Normal inferior vena cava with normal inspiratory collapse consistent with estimated right atrial pre ssure of 5 mmHg. There is no pericardial effusion. CONCLUSIONS -------- 1. Atrial fibrillation. 2. This was a technically good study. 3. The left ventricular size is normal. 4. There is moderate concentric left ventricular hypertrophy. 5. Overall left ventricular systolic function is normal with, an EF between 55 - 60 %. 6. Septal wall motion is delayed and consistent with prior cardiac surgery. 7. The right ventricle is moderately enlarged. 8. LA is severely dilated >40 ml/m2 9. The right atrium is mildly enlarged. 10. Electronic pacemaker lead seen in the right atrial cavity. 11. Interatrial and interventricular septum intact. 12. There is no evidence of aortic regurgitation. 13. There is mild aortic stenosis present. 14. Peak/mean gradient across the Aortic Valve is 30.99mmHg / 18.60mmHg. 15. Moderate mitral annular calcification present. 16. Hpjigzin-xl-vasekc mitral regurgitation is present. 17. Moderate to severe tricuspid regurgitation present. 18. There is moderate to severe pulmonary hypertension. 19. The right ventricular systolic pressure, as measured by Doppler, is 60.32mmHg. 20. The aortic root size is normal. 21. Normal inferior vena cava with normal inspiratory collapse consistent with estimated right atrial pressure of 5 mmHg. 22. There is no pericardial effusion. SAFETY EQUIPMENT TESTING SPECIALIST: Pao Hayden RDCS
--- NOTE | 2019-10-17 12:18 | P.HPIM ---
History of Present Illness H&P Date: 10/17/19 Chief Complaint: Increased shortness of breath This is an 84-year-old male patient of Dr. Ayers. Patient presented to the ER with complaints of increased shortness of breath. Patient states that the pain intermittently occurring for quite some time. Patient reports that he's been treated outpatient with nebulizers and prednisone without significant improvement. Patient reports that over the past week he's had increased shortness of breath, increased sputum production. Patient reports that he feels like he cannot cultures breath with any activity. Patient denies any chest pain and does not normally wear oxygen at home. Patient does have a past medical history of atrial fibrillation in which she is maintained on eliquis, coronary artery disease, hyperlipidemia, hypertension, osteoarthritis, cardiomyopathy with pacemaker, neuropathy, chronic back pain and back surgery, previous heart cath with stents. Patient normally follows with Dr. Dietz per cardiology. Chest x-ray completed showing small right pleural effusion is new compared to old exam. No heart failure. Mild pulmonary fibrosis. EKG completed ventricular paced rhythm. Troponins mildly elevated 0.069 and 0.056. BNP 9800. Cardiology and pulmonary services have been consulted. 2-D echo has been ordered. Patient did receive IV Lasix and IV Solu-Medrol in the ER. Patient does report improvement. At this time patient denies any chest pain. Patient reports improvement with shortness of breath. Patient denies any nausea vomiting or diarrhea. Patient denies any burning with urination. Review of Systems Please refer to HPI otherwise unremarkable Past Medical History Past Medical History: Atrial Fibrillation, Coronary Artery Disease (CAD), Eye Disorder, Hyperlipidemia, Hypertension, Osteoarthritis (OA) Additional Past Medical History / Comment(s): Cardiomyopathy, arthritis multiple joints, neuropathy bilateral hands/legs/feet, BPH with frequent night time urination, glaucoma bilateral eyes, skin cancer removed from scalp. History of Any Multi-Drug Resistant Organisms: None Reported Past Surgical History: Back Surgery, Heart Catheterization With Stent, Hernia Repair, Orthopedic Surgery, Pacemaker Additional Past Surgical History / Comment(s): PCI with 2 stents, pacemaker lt chest-[employer] mod # [id number] serial #[id number]- [employer] [id number]-has card, total lt hip, cervical [id number] surgery, lumbar 3-5 disc repair- hardware present,aleksandra carpel tunnel, aleksandra cataracts removed/lens implants, abdominal hernia repair, colonoscopy. Past Anesthesia/Blood Transfusion Reactions: No Reported Reaction Additional Past Anesthesia/Blood Transfusion Reaction / Comment(s): no hx blood transfusion Date of Last Stent Placement:: 11-29-2012 Type of Cardiac Device: Permanent Pacemaker Device Placement Date:: 12-01-2012 Past Psychological History: No Psychological Hx Reported Smoking Status: Former smoker Past Alcohol Use History: Occasional Past Drug Use History: None Reported - Past Family History Mother Family Medical History: Cancer, Myocardial Infarction ([place]) Additional Family Medical History / Comment(s): breast ca Father Family Medical History: No Reported History, Diabetes Mellitus Additional Family Medical History / Comment(s): at age 94 Brother(s) Family Medical History: Congestive Heart Failure (CHF) Additional Family Medical History / Comment(s): heart valve replacement Medications and Allergies Home Medications Medication Instructions Recorded Confirmed Type Brinzolamide/Brimonidine Tart 1 drop BOTH EYES BID 12/11/15 10/17/19 History [Simbrinza 1%-0.2% Eye Drops] Digoxin [Lanoxin] 125 mcg PO DAILY 12/11/15 10/17/19 History Enalapril [Vasotec] 2.5 mg PO QAM 12/11/15 10/17/19 History Metoprolol Tartrate 25 mg PO BID 12/11/15 10/17/19 History Simvastatin [Zocor] 20 mg PO HS 12/11/15 10/17/19 History Cholecalciferol [Vitamin D3 (25 5,000 unit PO DAILY 11/12/18 10/17/19 History Mcg = 1000 Iu)] busPIRone HCL [Buspar] 7.5 mg PO BID 11/12/18 10/17/19 History Acetaminophen [Tylenol Extra 1,000 mg PO Q6H PRN 10/17/19 10/17/19 History Strength] Apixaban [Eliquis] 2.5 mg PO BID 10/17/19 10/17/19 History Furosemide [Lasix] 20 mg PO DAILY 10/17/19 10/17/19 History Spironolactone 12.5 mg PO QAM 10/17/19 10/17/19 History Allergies Allergy/AdvReac Type Severity Reaction Status Date / Time No Known Allergies Allergy Verified 10/17/19 08:55 Physical Exam Vitals: Vital Signs Temp Pulse Pulse Resp BP BP Pulse Ox 10/17/19 11:15 60 18 10/17/19 11:03 60 18 128/73 100 10/17/19 10:31 68 16 127/70 95 10/17/19 07:42 98.3 F 60 18 162/66 98 10/17/19 05:30 60 20 144/67 99 10/17/19 03:49 61 10/17/19 03:38 60 10/17/19 03:36 61 18 148/80 100 10/17/19 03:05 22 10/17/19 02:27 97.9 F 63 22 167/75 93 L Intake and Output 10/16/19 10/17/19 10/17/19 22:59 06:59 14:59 Other: Voiding Method Toilet Weight 74.843 kg Head normocephalic Neck supple Lungs diminished bilaterally Heart regular rate and rhythm S1-S2, no rub or gallop Abdomen is soft nontender nondistended positive bowel sounds no hepatosplenomegaly Extremities no edema Neuro alert and orientated to 3 Results CBC & Chem 7: 10/17/19 02:32 10/17/19 02:32 Labs: Abnormal Lab Results - Last 24 Hours (Table) 10/17/19 10/17/19 10/17/19 Range/Units 02:32 02:32 02:32 RBC 3.60 L (4.30-5.90) m/uL Hgb 11.9 L (13.0-17.5) gm/dL Hct 35.7 L (39.0-53.0) % Plt Count 470 H (150-450) k/uL Sodium 132 L (137-145) mmol/L BUN 32 H (9-20) mg/dL Creatinine 1.36 H (0.66-1.25) mg/dL POC Glucose (mg/dL) (75-99) mg/dL Troponin I 0.069 H* (0.000-0.034) ng/mL Total Protein 5.9 L (6.3-8.2) g/dL Albumin 3.2 L (3.5-5.0) g/dL 10/17/19 10/17/19 Range/Units 04:59 08:50 RBC (4.30-5.90) m/uL Hgb (13.0-17.5) gm/dL Hct (39.0-53.0) % Plt Count (150-450) k/uL Sodium (137-145) mmol/L BUN (9-20) mg/dL Creatinine (0.66-1.25) mg/dL POC Glucose (mg/dL) 109 H (75-99) mg/dL Troponin I 0.056 H* (0.000-0.034) ng/mL Total Protein (6.3-8.2) g/dL Albumin (3.5-5.0) g/dL Assessment and Plan Assessment: 1. Increased shortness of breath possibly related to CHF and COPD exacerbation. Chest x-ray completed showing small right pleural effusion new compared to old exam. No heart failure. Mild pulmonary fibrosis. Patient started on prednisone 40 and home Lasix dose. Cardiology and pulmonary services have been consulted. 2-D echo has been ordered 2. Mildly elevated troponins. Initial troponin 0.069, 0.056. Cardiology servi marcio have been consulted 3. Acute kidney injury. Creatinine slightly elevated at 1.36 bun is 32 we'll continue to monitor 4. History of chronic back pain with previous back surgeries 5. History of chronic systolic congestive heart failure 6. History of permanent pacemaker placement 7. History of coronary artery disease with previous cardiac stents 2 8. History of hyperlipidemia. Home meds resumed 9. History of essential hypertension DVT prophylaxis eliquis. GI prophylaxis Pepcid Cardiology and pulmonary services consulted Time with Patient: Greater than 30 (Greater than 60% of the total time spent in counseling and coordination of care. I performed an examination of the patient and discussed their management with the Nurse Practitioner. I have reviewed the Nurse Practitioner's notes and agree with the documented findings and plan of care)
[2019-10-17] MEDS ORDERED: METOPROLOL TARTRATE 50 MG TAB PO SCH (12:45)
--- NOTE | 2019-10-17 12:45 | CONS ---
CONSULTATION Dino Batista is 84-year-old elderly gentleman with a known history of CAD, prior aortocoronary bypass surgery, who sees Dr. Dietz in the outpatient setting. He has chronic atrial fibrillation with a slow ventricular rate and has an underlying permanent pacemaker. He became very short of breath at home, called 911 and has been hospitalized with exacerbation of congestive heart failure. This gentleman has multiple comorbid conditions in the form of COPD with pulmonary hypertension of significance, chronic atrial fibrillation with a slow rate underlying atrial fibrillation with a paced beats. He also has history of pulmonary hypertension and CAD with a prior PCI, details of which are not available. He has a permanent pacemaker. He is known to have mild aortic stenosis and pulmonary hypertension with mitral regurgitation of a moderate degree. He arrived with shortness of breath with IV Lasix. He feels better. MEDICATIONS: Include digoxin 125 mcg daily, Vasotec 2.5 mg daily, metoprolol 25 mg b.i.d., simvastatin 20 mg at bedtime. He also takes some vitamin supplements, Flexeril. No known drug allergies. PHYSICAL EXAMINATION: Blood pressure is 127/70, pulse rate is 60, paced. HEENT Unremarkable. Fundus was not examined by me. NECK: Supple. JVD of 1 cm. No carotid bruit. HEART: Exam reveals S1, S2 with ejection systolic murmur and preserved second heart sound at the base, another systolic murmur seems to be more pansystolic at the apex. LUNGS: Revealed decent air entry with the somewhat diminished breath sounds on both bases. ABDOMEN: Soft, nontender. LOWER EXTREMITIES: Reveal diminished pulses. CENTRAL NERVOUS SYSTEM: Grossly within normal limits. IMPRESSION: 1. Exacerbation of diastolic heart failure. 2. Pulmonary hypertension. 3. Mild aortic stenosis. 4. Coronary artery disease with prior PCI. 5. Pulmonary hypertension. RECOMMENDATION: I am recommending cautious diuresis and resumption of other medications given his age. I will decrease the digoxin dose to 125 mcg every other day. Based on clinical course, will make further recommendations. A troponin is mildly elevated, but does not seem to be significant. BNP is elevated to over 9000. We will continue with anticoagulation with Eliquis and continue IV diuretics till tomorrow and check BMP in the morning. Thank you very much for the consult. MMODL / IJN: [id number] /
[2019-10-17] MEDS: FUROSEMIDE 10 MG/ML 4 ML VIAL IV SCH ×2 (15:42→20:00)
[2019-10-17] MEDS: DIGOXIN 125 MCG TAB PO SCH (15:42)
[2019-10-17] MEDS: METOPROLOL TARTRATE 25 MG TAB PO SCH ×2 (15:42→20:01)
--- NOTE | 2019-10-17 16:52 | P.CNPUL ---
History of Present Illness Consult date: 10/17/19 Reason for consult: dyspnea History of present illness: 1-year-old male patient presented also because of worsening shortness of breath along with some limited admitted pain. The patient was progressively getting worse over the past 1 week in terms of his breathing and he also had increased sputum production. The patient was having these symptoms and he end up going and seeing his primary care physician and the patient was given a course of prednisone burst taper to complete in addition to an albuterol nebulized treatments. In fact the patient was given prednisone taper on 2 separate occasions without much of an improvement in the end up coming into the hospital. He is known to have COPD, coronary artery disease along with hypertension and hyperlipidemia and history of cardiomyopathy and BPH. He has had previous PCI and coronary stents placed and has a pacemaker in place. On admission, the patient's creatinine was at 1.36 with a mean of 32. Electrolytes are within normal limits. White cell count at 8.9 with a hemoglobin of 11.9. Troponins were positive with levels of 0.06 and 0.05 and 0.04 respectively 3. ProBNP level was 9800. The EKG showed paced ventricular rhythm at the rate of 60. The chest x-ray shows a pacemaker along the left side of the chest, some mild pulmonary vascular congestion, small subpulmonic pleural effusions and there is no evidence of any airspace disease or pneumonia.. There is no airspace disease. There is no pulmonary infiltrates or pneumonias. No evidence of any pneumothorax. The echo showed moderate LVH, ejection fraction of 55-60%, moderate to severe mitral regurgitation, moderate severe tricuspid regurgitation, PA pressure of 60 and normal IVC with inspiratory collapse. The RV was moderately Review of Systems Constitutional: Reports fatigue, Reports weakness Eyes: denies as per HPI, denies blurred vision, denies bulging eye, denies decreased vision, denies diplopia, denies discharge, denies dry eye, denies irritation, denies itching, denies pain, denies photophobia, denies loss of peripheral vision, denies loss of vision, denies tunnel vision/blind spots Ears: deny: decreased hearing, ear discharge, earache, tinnitus Ears, nose, mouth and throat: Denies headache, Denies sore throat Breasts: absent: as per HPI, gynecomastia Cardiovascular: Reports decreased exercise tolerance, Reports dyspnea on exertion Respiratory: Reports dyspnea, Reports wheezing Gastrointestinal: Denies abdominal pain, Denies diarrhea, Denies nausea, Denies vomiting Genitourinary: Reports as per HPI Musculoskeletal: Reports as per HPI, Reports gait dysfunction Musculoskeletal: absent: ankle pain, ankle stiffness, ankle swelling Integumentary: Denies pruritus, Denies rash Neurological: Reports balance difficulties, Reports gait dysfunction Psychiatric: Reports as per HPI Endocrine: Reports as per HPI Hematologic/Lymphatic: Reports as per HPI Allergic/Immunologic: Reports as per HPI Past Medical History Past Medical History: Atrial Fibrillation, Coronary Artery Disease (CAD), Cancer, Heart Failure, COPD, Dementia, Eye Disorder, Hyperlipidemia, Hypertension, Osteoarthritis (OA) Additional Past Medical History / Comment(s): Cardiomyopathy, arthritis multiple joints, back pain, neuropathy bilateral hands/legs/feet, BPH with frequent night time urination, glaucoma bilateral eyes, skin cancer removed from scalp. History of Any Multi-Drug Resistant Organisms: None Reported Past Surgical History: Back Surgery, Heart Catheterization With Stent, Hernia Repair, Orthopedic Surgery, Pacemaker Additional Past Surgical History / Comment(s): PCI with 2 stents, pacemaker lt chest-[employer] # [id number] serial #[id number] [id number] card, total lt hip, cervical [id number] surgery, lumbar 3-5 disc repair- hardware present,aleksandra carpel tunnel, aleksandra cataracts removed/lens implants, abdominal hernia repair, colonoscopy. Past Anesthesia/Blood Transfusion Reactions: No Reported Reaction Additional Past Anesthesia/Blood Transfusion Reaction / Comment(s): no hx blood transfusion Date of Last Stent Placement:: 11-29-2012 Type of Cardiac Device: Permanent Pacemaker Device Placement Date:: 12-01-2012 Smoking Status: Former smoker - Past Family History Mother Family Medical History: Cancer, Myocardial Infarction ([place]) Additional Family Medical History / Comment(s): breast ca Father Family Medical History: No Reported History, Diabetes Mellitus Additional Family Medical History / Comment(s): at age 94 Brother(s) Family Medical History: Congestive Heart Failure (CHF) Additional Family Medical History / Comment(s): heart valve replacement Medications and Allergies Home Medications Medication Instructions Recorded Confirmed Type Brinzolamide/Brimonidine Tart 1 drop BOTH EYES BID 12/11/15 10/17/19 History [Simbrinza 1%-0.2% Eye Drops] Digoxin [Lanoxin] 125 mcg PO DAILY 12/11/15 10/17/19 History Enalapril [Vasotec] 2.5 mg PO QAM 12/11/15 10/17/19 History Metoprolol Tartrate 25 mg PO BID 12/11/15 10/17/19 History Simvastatin [Zocor] 20 mg PO HS 12/11/15 10/17/19 History Cholecalciferol [Vitamin D3 (25 5,000 unit PO DAILY 11/12/18 10/17/19 History Mcg = 1000 Iu)] busPIRone HCL [Buspar] 7.5 mg PO BID 11/12/18 10/17/19 History Acetaminophen [Tylenol Extra 1,000 mg PO Q6H PRN 10/17/19 10/17/19 History Strength] Apixaban [Eliquis] 2.5 mg PO BID 10/17/19 10/17/19 History Furosemide [Lasix] 20 mg PO DAILY 10/17/19 10/17/19 History Spironolactone 12.5 mg PO QAM 10/17/19 10/17/19 History Allergies Allergy/AdvReac Type Severity Reaction Status Date / Time No Known Allergies Allergy Verified 10/17/19 08:55 Physical Exam Vitals: Vital Signs Temp Pulse Pulse Resp BP BP Pulse Ox 10/17/19 15:47 60 19 125/77 96 10/17/19 11:15 60 18 10/17/19 11:03 60 18 128/73 100 10/17/19 10:31 68 16 127/70 95 10/17/19 07:42 98.3 F 60 18 162/66 98 10/17/19 05:30 60 20 144/67 99 10/17/19 03:49 61 10/17/19 03:38 60 10/17/19 03:36 61 18 148/80 100 10/17/19 03:05 22 10/17/19 02:27 97.9 F 63 22 167/75 93 L Intake and Output 10/17/19 10/17/19 10/17/19 06:59 14:59 22:59 Other: Voiding Method Toilet Weight 74.843 kg 74.843 kg - Constitutional General appearance: average body habitus, cooperative, no acute distress - EENT Eyes: Reports anicteric sclerae, Reports EOMI, Reports PERRLA, Reports dentition normal, Reports normal apperance ENT: Reports hearing grossly normal, Reports NA/AT, Reports normal oropharynx - Neck Neck: Reports normal ROM, Denies lymphadenopathy, Denies other, Denies rigidity, Denies stridor, Denies thyromegaly - Respiratory Respiratory: bilateral:, negative: dullness, rhonchi, wheezing, prolonged expiration - Cardiovascular Rhythm: regular Abnormal Heart Sounds: systolic murmur, no diastolic murmur, no rub, no S3 Gallop, Denies S4 Gallop, Denies click, Denies other - Gastrointestinal General gastrointestinal: Abdominal exam revealed normal bowel sounds. The abdomen was soft, non-tender, and without masses, organomegaly, or appreciable enlargement of the abdominal aorta. - Integumentary Integumentary: Examination of the skin revealed no evidence of significant rashes, suspicious appearing nevi or other concerning lesions. - Neurologic Neurologic: CNII-XII intact, focal deficits - Musculoskeletal Musculoskeletal: Reports gait normal , , otherwise within normal limits - Psychiatric Psychiatric: Reports A&O x's 3, Reports appropriate affect, Reports intact judgment & insight Results - Laboratory Findings CBC and BMP: 10/17/19 02:32 10/17/19 02:32 PT/INR, D-dimer PT 11.1 sec (9.0-12.0) 10/17/19 02:32 INR 1.1 (<1.2) 10/17/19 02:32 Abnormal lab findings: Abnormal Labs 10/17/19 10/17/19 10/17/19 02:32 02:32 02:32 RBC 3.60 L Hgb 11.9 L Hct 35.7 L Plt Count 470 H Sodium 132 L BUN 32 H Creatinine 1.36 H POC Glucose (mg/dL) Troponin I 0.069 H* Total Protein 5.9 L Albumin 3.2 L 10/17/19 10/17/19 10/17/19 04:59 08:50 14:32 RBC Hgb Hct Plt Count Sodium BUN Creatinine POC Glucose (mg/dL) 109 H Troponin I 0.056 H* 0.043 H* Total Protein Albumin - Diagnostic Findings Chest x-ray: image reviewed Assessment and Plan Plan: 1. Acute COPD exacerbation with secondary shortness of breath. There may be also a component of CHF as the patient's chest x-ray showing mild pulmonary vessel congestion and interstitial edema in addition to small pleural effusions and the patient had a elevated proBNP level. The patient will be admitted and be chewed for both. He is free of any chest pain. There is limited amount of troponin leak. EKG showing a paced rhythm for now. 2. Chronic atrial fibrillation , study of and the patient has a previous ablation and following that the patient has a pacemaker in place and current rhythm is paced at the rate of 60, ventricular paced. 3. BPH without any lower tract symptomatology 4. Glaucoma 5. History of pacemaker insertion 6. Hypertensive heart disease with moderate concentric LVH and an ejection fraction of 55-60%. The patient also has pulmonary hypertension moderate to severe in nature with a PA pressure of 60 and evidence of right ventricular enlargement. 7. CAD with prior cardiac stents 2 vessel 5-6 years ago, asymptomatic. 8. History of cervical disc surgery, stable 9 valvular heart disease with moderate to severe mitral regurgitation and moderate to severe tricuspid regurgitation with moderate to severe pulmonary hypertension with a PA pressure of around 60 10 hyperlipidemia 11 abnormal troponin, doubt non-STEMI could be troponin leak related to COPD/CHF exacerbation. 12 skin cancer 15 osteoarthritis. Plan We'll admit the patient to the hospital We'll use DuoNeb nebulized treatments around the clock, 4 times a day and when necessary Stop the oral prednisone up with the patient IV Solu Medrol 60 mg every 6 hours Echo was noted Cardiac enzymes were noted Cardiology will be consulted Gentle diuresis with IV Lasix 40 mg every 12 hours Continue rest of the cardiac medications Will follow and I would anticipate recovery within next 24-48 hours.
[2019-10-17 17:35] LABS: Glucose,Whole Blood 155 mg/dL (75-99)
[2019-10-17] MEDS: methylPREDNISolone SOD SUCCI 125 MG/2 ML VIAL IV SCH ×2 (18:23→23:54)
[2019-10-17] MEDS: ATORVASTATIN 10 MG TAB PO SCH (20:00)
[2019-10-17] MEDS: busPIRone HCl 5 MG TAB PO SCH (20:02)
[2019-10-17] MEDS: Brinzolamide/Brimonidine Tart [Simbrinza 1%-0.2% Eye Drops] BOTH EYES SCH (20:08)
[2019-10-17 20:19] LABS: Glucose,Whole Blood 165 mg/dL (75-99)
[2019-10-17] MEDS: IPRATROPIUM-ALBUTEROL 3 ML NEB INHALATION SCH (20:28)
[2019-10-17] MEDS ORDERED: METOPROLOL TARTRATE 25 MG TAB PO SCH (21:00)
[2019-10-18 06:04] LABS: Basophils # (A) 0.1 k/uL (0-0.2); Basophils % (A) 0 %; Eosinophils % (A) 0 %; HCT 39.7 % (39.0-53.0); Lymphocytes # (A) 0.7 k/uL (1.0-4.8); Lymphocytes % (A) 5 %; MCH 32.7 pg (25.0-35.0); MCHC 32.8 g/dL (31.0-37.0); MCV 99.6 fL (80.0-100.0); Macrocytosis Slight; Mean Platelet Volume 7.1; Monocytes # (A) 0.3 k/uL (0-1.0); Monocytes % (A) 2 %; Neutrophils # (A) 13.9 k/uL (1.3-7.7); Neutrophils % (A) 92 %; Platelet Count 497 k/uL (150-450); Poikilocytosis Slight; RBC 3.98 m/uL (4.30-5.90); RDW 14.8 % (11.5-15.5); WBC 15.1 k/uL (3.8-10.6)
[2019-10-18 06:14] LABS: Albumin 3.7 g/dL (3.5-5.0); Calcium 9.3 mg/dL (8.4-10.2); Potassium 4.4 mmol/L (3.5-5.1); Total Bilirubin 0.9 mg/dL (0.2-1.3); Total Protein 6.5 g/dL (6.3-8.2)
[2019-10-18 06:18] LABS: Glucose,Whole Blood 138 mg/dL (75-99)
[2019-10-18] MEDS: INSULIN ASPART (NovoLOG) 100 UNIT/ML VIAL SQ SCH ×4 (06:44→21:11)
[2019-10-18] MEDS: methylPREDNISolone SOD SUCCI 125 MG/2 ML VIAL IV SCH ×3 (06:44→17:52)
[2019-10-18] MEDS: IPRATROPIUM-ALBUTEROL 3 ML NEB INHALATION SCH ×4 (07:47→22:15)
[2019-10-18] MEDS: Brinzolamide/Brimonidine Tart [Simbrinza 1%-0.2% Eye Drops] BOTH EYES SCH ×2 (08:51→20:58)
[2019-10-18] MEDS: CHOLECALCIFEROL 1,000 UNIT TAB PO SCH (08:51)
[2019-10-18] MEDS: busPIRone HCl 5 MG TAB PO SCH ×2 (08:51→21:10)
[2019-10-18] MEDS: APIXABAN 2.5 MG TABLET PO SCH ×2 (08:52→21:10)
[2019-10-18] MEDS: SPIRONOLACTONE 25 MG TAB PO SCH (08:52)
[2019-10-18] MEDS: FAMOTIDINE 20 MG TAB PO SCH (08:52)
[2019-10-18] MEDS: METOPROLOL TARTRATE 25 MG TAB PO SCH ×2 (08:52→21:10)
[2019-10-18] MEDS: ASPIRIN 81 MG PO SCH (08:52)
[2019-10-18] MEDS: FUROSEMIDE 10 MG/ML 4 ML VIAL IV SCH (08:52)
[2019-10-18] MEDS: LISINOPRIL 5 MG TAB PO SCH (08:52)
[2019-10-18] MEDS ORDERED: FUROSEMIDE 20 MG TAB PO SCH (09:00)
[2019-10-18] MEDS ORDERED: ASPIRIN 325 MG TAB PO SCH (09:00)
[2019-10-18] MEDS: ACETAMINOPHEN TAB 500 MG TAB PO PRN ×3 (09:41→21:10)
--- NOTE | 2019-10-18 10:55 | P.PN ---
Subjective Progress Note Date: 10/18/19 80-year-old male patient presented also because of worsening shortness of breath along with some limited admitted pain. The patient was progressively getting worse over the past 1 week in terms of his breathing and he also had increased sputum production. The patient was having these symptoms and he end up going and seeing his primary care physician and the patient was given a course of prednisone burst taper to complete in addition to an albuterol nebulized treatments. In fact the patient was given prednisone taper on 2 separate occasions without much of an improvement in the end up coming into the hospital. He is known to have COPD, coronary artery disease along with hypertension and hyperlipidemia and history of cardiomyopathy and BPH. He has had previous PCI and coronary stents placed and has a pacemaker in place. On admission, the patient's creatinine was at 1.36 with a mean of 32. Electrolytes are within normal limits. White cell count at 8.9 with a hemoglobin of 11.9. Troponins were positive with levels of 0.06 and 0.05 and 0.04 respectively 3. ProBNP level was 9800. The EKG showed paced ventricular rhythm at the rate of 60. The chest x-ray shows a pacemaker along the left side of the chest, some mild pulmonary vascular congestion, small subpulmonic pleural effusions and there is no evidence of any airspace disease or pneumonia.. There is no airspace disease. There is no pulmonary infiltrates or pneumonias. No evidence of any pneumothorax. The echo showed moderate LVH, ejection fraction of 55-60%, moderate to severe mitral regurgitation, moderate severe tricuspid regurgitation, PA pressure of 60 and normal IVC with inspiratory collapse. The RV was moderately On 10/18/2019 and seeing the patient for a follow-up. There has been significant improvement in his condition. Is able to walk back and forth to the bathroom and he is less short of breath compared to yesterday. His EKG still showing a paced rhythm at the rate of 60. Echo was noted. He is on IV Lasix. He is on IV Solu-Medrol. Less bronchospastic and less wheezy compared to yesterday and his condition is improved significantly. He was also seen by cardiology this morning. No chest pain. Is able to lay down flat without having any major difficulties in breathing. Objective - Vital Signs Vital signs: Vital Signs Temp 96.4 F L 01/07/20 08:42 Pulse 63 10/18/19 10:28 Resp 18 10/18/19 10:28 BP 145/65 10/18/19 10:28 Pulse Ox 99 10/18/19 10:28 Intake & Output 10/17/19 10/18/19 10/18/19 18:59 06:59 18:59 Intake Total 600 480 Output Total 2600 300 Balance 600 -2600 180 Weight 74.843 kg 74.3 kg Intake: Oral 600 480 Output: Urine 2600 300 Other: Voiding Method Toilet Toilet Urinal # Voids 4 1 - Exam - Constitutional General appearance: average body habitus, cooperative, no acute distress - EENT Eyes: Reports anicteric sclerae, Reports EOMI, Reports PERRLA, Reports dentition normal, Reports normal apperance ENT: Reports hearing grossly normal, Reports NA/AT, Reports normal oropharynx - Neck Neck: Reports normal ROM, Denies lymphadenopathy, Denies other, Denies rigidity, Denies stridor, Denies thyromegaly - Respiratory Respiratory: bilateral:, negative: dullness, rhonchi, wheezing, prolonged expiration - Cardiovascular Rhythm: regular Abnormal Heart Sounds: systolic murmur, no diastolic murmur, no rub, no S3 Gallop, Denies S4 Gallop, Denies click, Denies other - Gastrointestinal General gastrointestinal: Abdominal exam revealed normal bowel sounds. The abdomen was soft, non-tender, and without masses, organomegaly, or appreciable enlargement of the abdominal aorta. - Integumentary Integumentary: Examination of the skin revealed no evidence of significant rashes, suspicious appearing nevi or other concerning lesions. - Neurologic Neurologic: CNII-XII intact, focal deficits - Musculoskeletal Musculoskeletal: Reports gait normal , , otherwise within normal limits - Psychiatric Psychiatric: Reports A&O x's 3, Reports appropriate affect, Reports intact judgment & insight - Labs CBC & Chem 7: 10/18/19 05:44 10/18/19 05:44 Labs: Abnormal Lab Results - Last 24 Hours (Table) 10/17/19 10/17/19 10/17/19 Range/Units 14:32 17:33 20:18 WBC (3.8-10.6) k/uL RBC (4.30-5.90) m/uL Plt Count (150-450) k/uL Neutrophils # (1.3-7.7) k/uL Lymphocytes # (1.0-4.8) k/uL Sodium (137-145) mmol/L BUN (9-20) mg/dL Glucose (74-99) mg/dL POC Glucose (mg/dL) 155 H 165 H (75-99) mg/dL Troponin I 0.043 H* (0.000-0.034) ng/mL 10/18/19 10/18/19 10/18/19 Range/Units 05:44 05:44 06:16 WBC 15.1 H (3.8-10.6) k/uL RBC 3.98 L (4.30-5.90) m/uL Plt Count 497 H (150-450) k/uL Neutrophils # 13.9 H (1.3-7.7) k/uL Lymphocytes # 0.7 L (1.0-4.8) k/uL Sodium 134 L (137-145) mmol/L BUN 35 H (9-20) mg/dL Glucose 146 H (74-99) mg/dL POC Glucose (mg/dL) 138 H (75-99) mg/dL Troponin I (0.000-0.034) ng/mL Assessment and Plan Plan: 1. Acute COPD exacerbation with secondary shortness of breath. There may be also a component of CHF as the patient's chest x-ray showing mild pulmonary vessel congestion and interstitial edema in addition to small pleural effusions and the patient had a elevated proBNP level. The patient will be admitted and be chewed for both. He is free of any chest pain. There is limited amount of troponin leak. EKG showing a paced rhythm for now. The patient was treated with a combination of bronchodilators and steroids and diuretics. Significant improvement in his condition compared to yesterday. Much less short of breath. Currently on room air oxygen. 2. Chronic atrial fibrillation , study of and the patient has a previous ablati on and following that the patient has a pacemaker in place and current rhythm is paced at the rate of 60, ventricular paced. 3. BPH without any lower tract symptomatology 4. Glaucoma 5. History of pacemaker insertion 6. Hypertensive heart disease with moderate concentric LVH and an ejection fraction of 55-60%. The patient also has pulmonary hypertension moderate to severe in nature with a PA pressure of 60 and evidence of right ventricular enlargement. 7. CAD with prior cardiac stents 2 vessel 5-6 years ago, asymptomatic. 8. History of cervical disc surgery, stable 9 valvular heart disease with moderate to severe mitral regurgitation and moderate to severe tricuspid regurgitation with moderate to severe pulmonary hypertension with a PA pressure of around 60 10 hyperlipidemia 11 abnormal troponin, doubt non-STEMI could be troponin leak related to COPD/CHF exacerbation. 12 skin cancer 15 osteoarthritis. Plan DuoNeb nebulized treatments around the clock, 4 times a day and when necessary IV Solu Medrol 60 mg every 6 hours, we'll start tapering as of tomorrow Echo was noted Cardiac enzymes were noted Cardiology will be consulted Gentle diuresis with IV Lasix 40 mg every 12 hours for another 24 hours Continue rest of the cardiac medications Will follow and I would anticipate recovery within next 24-48 hours.
[2019-10-18 11:08] VITALS: BMI 23.5
[2019-10-18 11:47] LABS: Glucose,Whole Blood 134 mg/dL (75-99)
--- NOTE | 2019-10-18 12:27 | P.PN ---
Subjective Progress Note Date: 10/18/19 This is an 84-year-old male patient of Dr. Ayers. Patient presented to the ER with complaints of increased shortness of breath. Patient states that the pain intermittently occurring for quite some time. Patient reports that he's been treated outpatient with nebulizers and prednisone without significant improvement. Patient reports that over the past week he's had increased shortness of breath, increased sputum production. Patient reports that he feels like he cannot cultures breath with any activity. Patient denies any chest pain and does not normally wear oxygen at home. Patient does have a past medical history of atrial fibrillation in which she is maintained on eliquis, coronary artery disease, hyperlipidemia, hypertension, osteoarthritis, cardiomyopathy with pacemaker, neuropathy, chronic back pain and back surgery, previous heart cath with stents. Patient normally follows with Dr. Dietz per cardiology. Chest x-ray completed showing small right pleural effusion is new compared to old exam. No heart failure. Mild pulmonary fibrosis. EKG completed ventricular paced rhythm. Troponins mildly elevated 0.069 and 0.056. BNP 9800. Cardiology and pulmonary services have been consulted. 2-D echo has been ordered. Patient did receive IV Lasix and IV Solu-Medrol in the ER. Patient does report improvement. At this time patient denies any chest pain. Patient reports improvement with shortness of breath. Patient denies any nausea vomiting or diarrhea. Patient denies any burning with urination. On 10/18/2019 patient is alert and oriented 3. Patient reports significant improvement with shortness of breath. Pulmonary and cardiology services are following. Patient remains on IV Lasix and IV Solu-Medrol. Patient denies any chest pain. Patient denies nausea vomiting or diarrhea. Patient denies any urinary burning or frequency. Patient to be transitioned to oral Lasix per cardiology Objective - Vital Signs Vital signs: Vital Signs Temp 96.4 F L 10/18/19 08:42 Pulse 62 10/18/19 12:19 Resp 14 10/18/19 12:19 BP 145/65 10/18/19 10:28 Pulse Ox 99 10/18/19 10:28 Intake & Output 10/17/19 10/18/19 10/18/19 18:59 06:59 18:59 Intake Total 600 480 Output Total 2600 600 Balance 600 -2600 -120 Weight 74.843 kg 74.3 kg 74.3 kg Intake: Oral 600 480 Output: Urine 2600 600 Other: Voiding Method Toilet Toilet Urinal # Voids 4 1 - Exam Head normocephalic Neck supple Lungs diminished bilaterally Heart regular rate and rhythm S1-S2, no rub or gallop Abdomen is soft nontender nondistended positive bowel sounds no hepatosplenomegaly Extremities no edema Neuro alert and orientated to 3 - Labs CBC & Chem 7: 10/18/19 05:44 10/18/19 05:44 Labs: Abnormal Lab Results - Last 24 Hours (Table) 10/17/19 10/17/19 10/17/19 Range/Units 14:32 17:33 20:18 WBC (3.8-10.6) k/uL RBC (4.30-5.90) m/uL Plt Count (150-450) k/uL Neutrophils # (1.3-7.7) k/uL Lymphocytes # (1.0-4.8) k/uL Sodium (137-145) mmol/L BUN (9-20) mg/dL Glucose (74-99) mg/dL POC Glucose (mg/dL) 155 H 165 H (75-99) mg/dL Troponin I 0.043 H* (0.000-0.034) ng/mL 10/18/19 10/18/19 10/18/19 Range/Units 05:44 05:44 06:16 WBC 15.1 H (3.8-10.6) k/uL RBC 3.98 L (4.30-5.90) m/uL Plt Count 497 H (150-450) k/uL Neutrophils # 13.9 H (1.3-7.7) k/uL Lymphocytes # 0.7 L (1.0-4.8) k/uL Sodium 134 L (137-145) mmol/L BUN 35 H (9-20) mg/dL Glucose 146 H (74-99) mg/dL POC Glucose (mg/dL) 138 H (75-99) mg/dL Troponin I (0.000-0.034) ng/mL 10/18/19 Range/Units 11:45 WBC (3.8-10.6) k/uL RBC (4.30-5.90) m/uL Plt Count (150-450) k/uL Neutrophils # (1.3-7.7) k/uL Lymphocytes # (1.0-4.8) k/uL Sodium (137-145) mmol/L BUN (9-20) mg/dL Glucose (74-99) mg/dL POC Glucose (mg/dL) 134 H (75-99) mg/dL Troponin I (0.000-0.034) ng/mL Assessment and Plan Assessment: 1. Increased shortness of breath possibly related to exacerbation of diastolic CHF and COPD exacerbation. Chest x-ray completed showing small right pleural effusion new compared to old exam. No heart failure. Mild pulmonary fibrosis. 2-D echo completed showing EF of 55-60%. Patient remains on oral Lasix . Per pulmonary patient remains on IV Solu-Medrol 2. Mildly elevated troponins. Initial troponin 0.069, 0.056. Cardiology services have been consulted 3. Acute kidney injury. Creatinine slightly elevated at 1.36 bun is 32 we'll continue to monitor 4. History of chronic back pain with previous back surgeries 5. History of chronic diastolic congestive heart failure 6. History of permanent pacemaker placement 7. History of coronary artery disease with previous cardiac stents 2 8. History of hyperlipidemia. Home meds resumed 9. History of essential hypertension 10. Chronic atrial fibrillation. Patient did have previous ablation. Patient's heart rate is now currently paced with a rate of 60. Patient is main tained on eliquis. Digoxin has been decreased per cardiology DVT prophylaxis eliquis. GI prophylaxis Pepcid Cardiology and pulmonary services consulted I performed an examination of the patient and discussed their management with the Nurse Practitioner. I have reviewed the Nurse Practitioner's notes and agree with the documented findings and plan of care
[2019-10-18] MEDS: FUROSEMIDE 40 MG TAB PO SCH (15:03)
--- NOTE | 2019-10-18 15:21 | PN ---
PROGRESS NOTE This is an 84-year-old gentleman with a history of CAD who was seen by me yesterday. He presented with increasing shortness of breath. There was some exacerbation of congestive heart failure-type picture, but clinically this morning he feels better. His breathing is easier. He denies any chest discomfort. His breathing is much easier today. I am recommending that we switch his Lasix to 40 mg p.o. b.i.d. and obtain an echocardiogram and continue the beta artem at 25 mg b.i.d. of metoprolol. He seems to be feeling better today. Denies any chest discomfort. His shortness of breath has improved. Blood pressure was initially higher, but the repeat pressure today is 145/65, pulse rate is 63 per minute. There is JVD of 1 cm. No carotid bruit, S1-S2 is heard normally. There is an ejection systolic murmur at the base of the heart. Lungs are clear. Abdomen and lower exam are unchanged. I am recommending that we add amlodipine 5 mg daily, continue other medications, optimize BP control, switch him to oral Lasix and hopefully he can be discharged later on today or more likely tomorrow. Discussed my thoughts in detail with the patient. Thank you very much for the consult. MMODL / IJN: [id number] /
[2019-10-18 17:20] LABS: Glucose,Whole Blood 157 mg/dL (75-99)
[2019-10-18 20:52] LABS: Glucose,Whole Blood 147 mg/dL (75-99)
[2019-10-18] MEDS: ATORVASTATIN 10 MG TAB PO SCH (21:10)
[2019-10-19] MEDS: methylPREDNISolone SOD SUCCI 125 MG/2 ML VIAL IV SCH ×3 (00:04→12:00)
[2019-10-19] MEDS: INSULIN ASPART (NovoLOG) 100 UNIT/ML VIAL SQ SCH ×2 (06:27→12:03)
[2019-10-19 06:28] LABS: Glucose,Whole Blood 120 mg/dL (75-99)
[2019-10-19] MEDS: ACETAMINOPHEN TAB 500 MG TAB PO PRN (06:32)
[2019-10-19] MEDS: IPRATROPIUM-ALBUTEROL 3 ML NEB INHALATION SCH ×3 (07:10→15:14)
[2019-10-19 07:14] LABS: Basophils % (A) 0 %; Eosinophils % (A) 0 %; HCT 40.5 % (39.0-53.0); Lymphocytes # (A) 0.6 k/uL (1.0-4.8); Lymphocytes % (A) 3 %; MCH 32.2 pg (25.0-35.0); MCHC 32.1 g/dL (31.0-37.0); Macrocytosis Slight; Mean Platelet Volume 7.1; Monocytes # (A) 0.5 k/uL (0-1.0); Monocytes % (A) 3 %; Neutrophils % (A) 94 %; Platelet Count 511 k/uL (150-450); Poikilocytosis Slight; RBC 4.05 m/uL (4.30-5.90); RDW 14.8 % (11.5-15.5); WBC 18.2 k/uL (3.8-10.6)
[2019-10-19 07:28] LABS: Albumin 3.5 g/dL (3.5-5.0); Calcium 9.5 mg/dL (8.4-10.2); Potassium 4.6 mmol/L (3.5-5.1); Total Bilirubin 0.8 mg/dL (0.2-1.3); Total Protein 6.3 g/dL (6.3-8.2)
[2019-10-19] MEDS: Brinzolamide/Brimonidine Tart [Simbrinza 1%-0.2% Eye Drops] BOTH EYES SCH (08:41)
[2019-10-19 08:54] VITALS: RESP 20; TEMP 97.6
[2019-10-19] MEDS: METOPROLOL TARTRATE 25 MG TAB PO SCH (08:54)
[2019-10-19] MEDS: ASPIRIN 81 MG PO SCH (08:54)
[2019-10-19] MEDS: CHOLECALCIFEROL 1,000 UNIT TAB PO SCH (08:55)
[2019-10-19] MEDS: FAMOTIDINE 20 MG TAB PO SCH (08:55)
[2019-10-19] MEDS: LISINOPRIL 5 MG TAB PO SCH (08:55)
[2019-10-19] MEDS: SPIRONOLACTONE 25 MG TAB PO SCH (08:55)
[2019-10-19] MEDS: FUROSEMIDE 40 MG TAB PO SCH (08:56)
[2019-10-19] MEDS: busPIRone HCl 5 MG TAB PO SCH (08:56)
[2019-10-19] MEDS: APIXABAN 2.5 MG TABLET PO SCH (08:56)
[2019-10-19] MEDS ORDERED: amLODIPine 5 MG TAB PO SCH (09:00)
[2019-10-19] MEDS ORDERED: oxyCODONE-APAP 5-325MG 1 EACH TAB PO SCH (11:00)
[2019-10-19 11:42] LABS: Glucose,Whole Blood 196 mg/dL (75-99)
[2019-10-19 11:56] VITALS: BP 125/58
[2019-10-19] MEDS: DIGOXIN 125 MCG TAB PO SCH (12:00)
--- NOTE | 2019-10-19 15:00 | PN ---
PROGRESS NOTE Mr. Batista is a gentleman with history of CAD and prior PCI and congestive heart failure. He has mild aortic stenosis and also moderate mitral regurgitation. He has improved a lot. He feels well. Denies chest pain. Breathing is easier, vital signs stable. JVD is 1 cm, no carotid bruit. S1-S2 heard normally, short systolic murmur is audible at the base and apex. Lungs reveal improved air entry. Abdomen and lower extremity exam unchanged. Plan is to continue current medications with increased dose of Lasix, discharge him today and he will see Dr. Dietz in 2 weeks. Discussed my thoughts in detail with the patient. MMODL / IJN: [id number] /
--- NOTE | 2019-10-19 15:01 | P.DS ---
Providers Date of admission: 10/17/19 04:37 Expected date of discharge: 10/19/19 Attending physician: Jean Gutierrez Consults: 10/17/19 04:31 Consult Physician Routine Consulting Provider: Jose C Dietz Consult Reason/Comments: chf exacerbation, elevated trop, no CP Do you want consulting provider notified?: Yes, Notify in am 10/17/19 09:00 Consult Physician Routine Consulting Provider: Grayson Lemus Consult Reason/Comments: copd exacerbation Do you want consulting provider notified?: Yes Primary care physician: Martita Ayers Hospital Course: Discharge diagnosis 1. Increased shortness of breath possibly related to exacerbation of diastolic CHF and COPD exacerbation. Chest x-ray completed showing small right pleural effusion new compared to old exam. No heart failure. Mild pulmonary fibrosis. 2-D echo completed showing EF of 55-60%. Patient remains on oral Lasix . Per pulmonary patient remains on IV Solu-Medrol. Patient has been cleared for discharge from cardiology standpoint. Patient will be DC'd on Lasix 40 mg twice a day. Patient cleared pulmonary services. Patient has been on room air. Patient will be DC'd and prednisone taper 2. Mildly elevated troponins. Initial troponin 0.069, 0.056. Cardiology services have been consulted 3. Acute kidney injury. Creatinine slightly elevated at 1.36 bun is 32 we'll continue to monitor. Repeat CMP has been ordered for 2 days patient follow-up with PCP for further management 4. History of chronic back pain with previous back surgeries 5. History of chronic diastolic congestive heart failure 6. History of permanent pacemaker placement 7. History of coronary artery disease with previous cardiac stents 2 8. History of hyperlipidemia. Home meds resumed 9. History of essential hypertension 10. Chronic atrial fibrillation. Patient did have previous ablation. Patient's heart rate is now currently paced with a rate of 60. Patient is maintained on eliquis. Digoxin has been decreased per cardiology Hospital course This is an 84-year-old male patient of Dr. Ayers. Patient presented to the ER with complaints of increased shortness of breath. Patient states that the pain intermittently occurring for quite some time. Patient reports that he's been treated outpatient with nebulizers and prednisone without significant improvement. Patient reports that over the past week he's had increased shortness of breath, increased sputum production. Patient reports that he feels like he cannot cultures breath with any activity. Patient denies any chest pain and does not normally wear oxygen at home. Patient does have a past medical history of atrial fibrillation in which she is maintained on eliquis, coronary artery disease, hyperlipidemia, hypertension, osteoarthritis, cardiomyopathy with pacemaker, neuropathy, chronic back pain and back surgery, previous heart cath with stents. Patient normally follows with Dr. Dietz per cardiology. Chest x-ray completed showing small right pleural effusion is new compared to old exam. No heart failure. Mild pulmonary fibrosis. EKG completed ventricular paced rhythm. Troponins mildly elevated 0.069 and 0.056. BNP 9800. Cardiology and pulmonary services have been consulted. 2-D echo has been ordered. Patient did receive IV Lasix and IV Solu-Medrol in the ER. Patient does report improvement. At this time patient denies any chest pain. Patient reports improvement with shortness of breath. Patient denies any nausea vomiting or diarrhea. Patient denies any burning with urination. On 10/18/2019 patient is alert and oriented 3. Patient reports significant improvement with shortness of breath. Pulmonary and cardiology services are following. Patient remains on IV Lasix and IV Solu-Medrol. Patient denies any chest pain. Patient denies nausea vomiting or diarrhea. Patient denies any urinary burning or frequency. Patient to be transitioned to oral Lasix per cardiology On 10/19/2019 patient is alert and oriented 3. Patient reports significant improvement with shortness of breath. Patient maintained on room air. Patient has been cleared both by pulmonary and cardiology services. Patient will be DC'd on increased dose of Lasix and decrease dose of digoxin per cardiology recommendation. Patient also will be discharged on prednisone taper for COPD exacerbation. The patient denies chest pain or shortness of breath. Patient denies nausea vomiting or diarrhea. Patient denies any urinary burning or frequency patient to follow with Dr. Gutierrez as PCP I performed an examination of the patient and discussed their management with the Nurse Practitioner. I have reviewed the Nurse Practitioner's notes and agree with the documented findings and plan of care Patient Condition at Discharge: Stable Plan - Discharge Summary Discharge Rx Participant: No New Discharge Prescriptions: New Furosemide [Lasix] 40 mg PO BID@0900,1600 30 Days #60 tab amLODIPine [Norvasc] 5 mg PO DAILY 30 Days #30 tab predniSONE 10 mg PO DIRECTED 12 Days #30 tab Digoxin [Lanoxin] 125 mcg PO MOWEFR tab Continue Metoprolol Tartrate 25 mg PO BID Brinzolamide/Brimonidine Tart [Simbrinza 1%-0.2% Eye Drops] 1 drop BOTH EYES BID Simvastatin [Zocor] 20 mg PO HS Enalapril [Vasotec] 2.5 mg PO QAM busPIRone HCL [Buspar] 7.5 mg PO BID Cholecalciferol [Vitamin D3 (25 Mcg = 1000 Iu)] 5,000 unit PO DAILY Spironolactone 12.5 mg PO QAM Apixaban [Eliquis] 2.5 mg PO BID Acetaminophen [Tylenol Extra Strength] 1,000 mg PO Q6H PRN PRN Reason: Pain oxyCODONE HCL/ACETAMINOPHEN [Endocet 5-325 mg] 1 tablet PO DAILY 3 Days #3 tab Discontinued Digoxin [Lanoxin] 125 mcg PO DAILY Furosemide [Lasix] 20 mg PO DAILY Discharge Medication List Brinzolamide/Brimonidine Tart [Simbrinza 1%-0.2% Eye Drops] 1 drop BOTH EYES BID 12/11/15 [History] Enalapril [Vasotec] 2.5 mg PO QAM 12/11/15 [History] Metoprolol Tartrate 25 mg PO BID 12/11/15 [History] Simvastatin [Zocor] 20 mg PO HS 12/11/15 [History] Cholecalciferol [Vitamin D3 (25 Mcg = 1000 Iu)] 5,000 unit PO DAILY 11/12/18 [History] busPIRone HCL [Buspar] 7.5 mg PO BID 11/12/18 [History] Acetaminophen [Tylenol Extra Strength] 1,000 mg PO Q6H PRN 10/17/19 [History] Apixaban [Eliquis] 2.5 mg PO BID 10/17/19 [History] Spironolactone 12.5 mg PO QAM 10/17/19 [History] Digoxin [Lanoxin] 125 mcg PO MOWEFR tab 10/19/19 [Rx] Furosemide [Lasix] 40 mg PO BID@0900,1600 30 Days #60 tab 10/19/19 [Rx] amLODIPine [Norvasc] 5 mg PO DAILY 30 Days #30 tab 10/19/19 [Rx] oxyCODONE HCL/ACETAMINOPHEN [Endocet 5-325 mg] 1 tablet PO DAILY 3 Days #3 tab 10/19/19 [Rx] predniSONE 10 mg PO DIRECTED 12 Days #30 tab 10/19/19 [Rx] Follow up Appointment(s)/Referral(s): Jose C Dietz MD [STAFF PHYSICIAN] - 10/28/19 9:30 am (Thursday) Jean Gutierrez MD [STAFF PHYSICIAN] - 10/25/19 10:30 am (Thursday) Ambulatory/Diagnostic Orders: Comprehensive Metabolic Panel [LAB.AMB] Time Frame: 2 Days, Location: None Selected Patient Instructions/Handouts: Heart Healthy Diet (DC) Activity/Diet/Wound Care/Special Instructions: Activity as tolerated Diet heart healthy Discharge Disposition: HOME SELF-CARE
--- NOTE | 2019-10-19 15:08 | P.PN ---
Subjective Progress Note Date: 10/19/19 80-year-old male patient presented also because of worsening shortness of breath along with some limited admitted pain. The patient was progressively getting worse over the past 1 week in terms of his breathing and he also had increased sputum production. The patient was having these symptoms and he end up going and seeing his primary care physician and the patient was given a course of prednisone burst taper to complete in addition to an albuterol nebulized treatments. In fact the patient was given prednisone taper on 2 separate occasions without much of an improvement in the end up coming into the hospital. He is known to have COPD, coronary artery disease along with hypertension and hyperlipidemia and history of cardiomyopathy and BPH. He has had previous PCI and coronary stents placed and has a pacemaker in place. On admission, the patient's creatinine was at 1.36 with a mean of 32. Electrolytes are within normal limits. White cell count at 8.9 with a hemoglobin of 11.9. Troponins were positive with levels of 0.06 and 0.05 and 0.04 respectively 3. ProBNP level was 9800. The EKG showed paced ventricular rhythm at the rate of 60. The chest x-ray shows a pacemaker along the left side of the chest, some mild pulmonary vascular congestion, small subpulmonic pleural effusions and there is no evidence of any airspace disease or pneumonia.. There is no airspace disease. There is no pulmonary infiltrates or pneumonias. No evidence of any pneumothorax. The echo showed moderate LVH, ejection fraction of 55-60%, moderate to severe mitral regurgitation, moderate severe tricuspid regurgitation, PA pressure of 60 and normal IVC with inspiratory collapse. The RV was moderately On 10/18/2019 and seeing the patient for a follow-up. There has been significant improvement in his condition. Is able to walk back and forth to the bathroom and he is less short of breath compared to yesterday. His EKG still showing a paced rhythm at the rate of 60. Echo was noted. He is on IV Lasix. He is on IV Solu-Medrol. Less bronchospastic and less wheezy compared to yesterday and his condition is improved significantly. He was also seen by cardiology this morning. No chest pain. Is able to lay down flat without having any major difficulties in breathing. On 2019 the patient is feeling extremely well. No specific complaints. Is on room air oxygen. His pulmonary status is back to his baseline. No wheezing. He is willing to go home today. Objective - Vital Signs Vital signs: Vital Signs Temp 97.6 F 10/19/19 11:55 Pulse 60 10/19/19 11:55 Resp 20 10/19/19 11:55 BP 125/58 10/19/19 11:55 Pulse Ox 96 10/19/19 11:55 Intake & Output 10/18/19 10/19/19 10/19/19 18:59 06:59 18:59 Intake Total 716 240 Output Total 800 500 300 Balance -84 -500 -60 Weight 74.3 kg 73.2 kg Intake: Oral 716 240 Output: Urine 800 500 300 Other: Voiding Method Toilet Toilet Urinal # Voids 2 1 - Exam - Constitutional General appearance: average body habitus, cooperative, no acute distress - EENT Eyes: Reports anicteric sclerae, Reports EOMI, Reports PERRLA, Reports dentition normal, Reports normal apperance ENT: Reports hearing grossly normal, Reports NA/AT, Reports normal oropharynx - Neck Neck: Reports normal ROM, Denies lymphadenopathy, Denies other, Denies rigidity, Denies stridor, Denies thyromegaly - Respiratory Respiratory: bilateral:, negative: dullness, rhonchi, wheezing, prolonged expiration - Cardiovascular Rhythm: regular Abnormal Heart Sounds: systolic murmur, no diastolic murmur, no rub, no S3 Gallop, Denies S4 Gallop, Denies click, Denies other - Gastrointestinal General gastrointestinal: Abdominal exam revealed normal bowel sounds. The abdomen was soft, non-tender, and without masses, organomegaly, or appreciable enlargement of the abdominal aorta. - Integumentary Integumentary: Examination of the skin revealed no evidence of significant rash es, suspicious appearing nevi or other concerning lesions. - Neurologic Neurologic: CNII-XII intact, focal deficits - Musculoskeletal Musculoskeletal: Reports gait normal , , otherwise within normal limits - Psychiatric Psychiatric: Reports A&O x's 3, Reports appropriate affect, Reports intact judgment & insight - Labs CBC & Chem 7: 10/19/19 06:32 10/19/19 06:32 Labs: Abnormal Lab Results - Last 24 Hours (Table) 10/18/19 10/18/19 10/19/19 Range/Units 17:19 20:49 06:26 WBC (3.8-10.6) k/uL RBC (4.30-5.90) m/uL Plt Count (150-450) k/uL Neutrophils # (1.3-7.7) k/uL Lymphocytes # (1.0-4.8) k/uL Sodium (137-145) mmol/L BUN (9-20) mg/dL Creatinine (0.66-1.25) mg/dL Glucose (74-99) mg/dL POC Glucose (mg/dL) 157 H 147 H 120 H (75-99) mg/dL 10/19/19 10/19/19 10/19/19 Range/Units 06:32 06:32 11:41 WBC 18.2 H (3.8-10.6) k/uL RBC 4.05 L (4.30-5.90) m/uL Plt Count 511 H (150-450) k/uL Neutrophils # 17.0 H (1.3-7.7) k/uL Lymphocytes # 0.6 L (1.0-4.8) k/uL Sodium 135 L (137-145) mmol/L BUN 45 H (9-20) mg/dL Creatinine 1.37 H (0.66-1.25) mg/dL Glucose 132 H (74-99) mg/dL POC Glucose (mg/dL) 196 H (75-99) mg/dL Assessment and Plan Plan: 1. Acute COPD exacerbation with secondary shortness of breath. There may be also a component of CHF as the patient's chest x-ray showing mild pulmonary vessel congestion and interstitial edema in addition to small pleural effusions and the patient had a elevated proBNP level. The patient will be admitted and be chewed for both. He is free of any chest pain. There is limited amount of troponin leak. EKG showing a paced rhythm for now. The patient was treated with a combination of bronchodilators and steroids and diuretics. Significant improvement in his condition compared to yesterday. His back to his baseline and is adequately diuresed. 2. Chronic atrial fibrillation , study of and the patient has a previous ablation and following that the patient has a pacemaker in place and current rhythm is paced at the rate of 60, ventricular paced. 3. BPH without any lower tract symptomatology 4. Glaucoma 5. History of pacemaker insertion 6. Hypertensive heart disease with moderate concentric LVH and an ejection fra ction of 55-60%. The patient also has pulmonary hypertension moderate to severe in nature with a PA pressure of 60 and evidence of right ventricular enlargement. 7. CAD with prior cardiac stents 2 vessel 5-6 years ago, asymptomatic. 8. History of cervical disc surgery, stable 9 valvular heart disease with moderate to severe mitral regurgitation and moderate to severe tricuspid regurgitation with moderate to severe pulmonary hypertension with a PA pressure of around 60 10 hyperlipidemia 11 abnormal troponin, doubt non-STEMI could be troponin leak related to COPD/CHF exacerbation. 12 skin cancer 15 osteoarthritis. Plan She will be discharged home today.Patient will be going home on Lasix 40 mg by mouth twice a day and a prednisone burst taper in addition to his routine res piratory medications.
[2019-10-19 15:27] VITALS: PULSE 64
== END 2019-10-19 16:30 | disposition home or self-care (01) ==
LOC: EC 02:22 → 3SCARD 04:37
PROVIDERS: ADMIT Internal Medicine; ATTEND Internal Medicine
DX: R06.02 Shortness of breath (principal); I50.32 Chronic diastolic (congestive) heart failure; J44.1 Chronic obstructive pulmonary disease with (acute) exacerbation; J84.10 Pulmonary fibrosis, unspecified; R79.89 Other specified abnormal findings of blood chemistry; N17.9 Acute kidney failure, unspecified; G89.29 Other chronic pain; M54.9 Dorsalgia, unspecified; Z95.0 Presence of cardiac pacemaker; I25.10 Atherosclerotic heart disease of native coronary artery without angina pectoris; Z95.5 Presence of coronary angioplasty implant and graft; E78.5 Hyperlipidemia, unspecified; I11.0 Hypertensive heart disease with heart failure; I48.20 Chronic atrial fibrillation, unspecified; H40.9 Unspecified glaucoma; M19.90 Unspecified osteoarthritis, unspecified site; I42.9 Cardiomyopathy, unspecified; G62.9 Polyneuropathy, unspecified; N40.1 Benign prostatic hyperplasia with lower urinary tract symptoms; R35.1 Nocturia; I08.3 Combined rheumatic disorders of mitral, aortic and tricuspid valves; I27.20 Pulmonary hypertension, unspecified; Z79.899 Other long term (current) drug therapy; Z79.01 Long term (current) use of anticoagulants; Z85.828 Personal history of other malignant neoplasm of skin; Z98.890 Other specified postprocedural states; Z96.642 Presence of left artificial hip joint; Z98.42 Cataract extraction status, left eye; Z98.41 Cataract extraction status, right eye; Z96.1 Presence of intraocular lens; Z87.891 Personal history of nicotine dependence; Z95.1 Presence of aortocoronary bypass graft; Z80.3 Family history of malignant neoplasm of breast; Z82.49 Family history of ischemic heart disease and other diseases of the circulatory system; Z83.3 Family history of diabetes mellitus
CPT/HCPCS: 96376 ×4; 96361; 96374; 96375; 99285; 36415; 94640 ×6; 94760 ×3; 93005; 93306; 97162; 83880; 80053 ×3; 83735; 84484; 85025 ×3; 85610; 85730; 71046; G0378 ×3; J1940 ×2; J2930 ×3; J7512

== ENCOUNTER 2019-11-25 11:13 | Emergency (ER) | payer MEDICARE ==
[2019-11-25 11:22] VITALS: TEMP 97.2
[2019-11-25] MEDS ORDERED: HYDROmorphone 0.5 MG/0.5 ML SYRINGE IVP STA (11:39)
--- NOTE | 2019-11-25 11:50 | ED ---
General Adult HPI - General Chief complaint: Extremity Injury, Lower Stated complaint: Fall, hip injury Source: patient, EMS, RN notes reviewed, old records reviewed Mode of arrival: EMS Limitations: no limitations - History of Present Illness Initial comments: This is an 84-year-old male who presents emergency Department after he fell this morning. Patient states he has in the past had a complete hip replacement on the left and it has dislocated once before and he believes is what happened when he fell today. Patient states he just lost his balance this morning he had no chest pain difficulty breathing shortest breath. Patient never felt lightheaded or dizzy. Denies any recent fever chills or cough. Patient denies hitting his head or neck. Patient denies any upper extremity chest back or abdominal pain. - Related Data Home Medications Medication Instructions Recorded Confirmed Brinzolamide/Brimonidine Tart 1 drop BOTH EYES BID 12/11/15 10/17/19 [Simbrinza 1%-0.2% Eye Drops] Enalapril [Vasotec] 2.5 mg PO QAM 12/11/15 10/17/19 Metoprolol Tartrate 25 mg PO BID 12/11/15 10/17/19 Simvastatin [Zocor] 20 mg PO HS 12/11/15 10/17/19 Cholecalciferol [Vitamin D3 (25 5,000 unit PO DAILY 11/12/18 10/17/19 Mcg = 1000 Iu)] busPIRone HCL [Buspar] 7.5 mg PO BID 11/12/18 10/17/19 Acetaminophen [Tylenol Extra 1,000 mg PO Q6H PRN 10/17/19 10/17/19 Strength] Apixaban [Eliquis] 2.5 mg PO BID 10/17/19 10/17/19 Spironolactone 12.5 mg PO QAM 10/17/19 10/17/19 Previous Rx's Medication Instructions Recorded Digoxin [Lanoxin] 125 mcg PO MOWEFR tab 10/19/19 Furosemide [Lasix] 40 mg PO BID@0900,1600 30 Days #60 10/19/19 tab amLODIPine [Norvasc] 5 mg PO DAILY 30 Days #30 tab 10/19/19 oxyCODONE HCL/ACETAMINOPHEN 1 tablet PO DAILY 3 Days #3 tab 10/19/19 [Endocet 5-325 mg] predniSONE 10 mg PO DIRECTED 12 Days #30 10/19/19 tab Allergies Allergy/AdvReac Type Severity Reaction Status Date / Time No Known Allergies Allergy Verified 11/25/19 11:22 Review of Systems ROS Statement: Those systems with pertinent positive or pertinent negative responses have been documented in the HPI. ROS Other: All systems not noted in ROS Statement are negative. Past Medical History Past Medical History: Atrial Fibrillation, Coronary Artery Disease (CAD), Cancer, Heart Failure, COPD, Dementia, Eye Disorder, Hyperlipidemia, Hypertension, Osteoarthritis (OA) Additional Past Medical History / Comment(s): Cardiomyopathy, arthritis multiple joints, back pain, neuropathy bilateral hands/legs/feet, BPH with frequent night time urination, glaucoma bilateral eyes, skin cancer removed from scalp. History of Any Multi-Drug Resistant Organisms: None Reported Past Surgical History: Back Surgery, Heart Catheterization With Stent, Hernia Repair, Orthopedic Surgery, Pacemaker Additional Past Surgical History / Comment(s): PCI with 2 stents, pacemaker lt chest-[employer] mod # [id number] serial #[id number] [employer] [id number] card, total lt hip, cervical [id number] surgery, lumbar 3-5 disc repair- hardware present,aleksandra carpel tunnel, aleksandra cataracts removed/lens implants, abdominal hernia repair, colonoscopy. Past Anesthesia/Blood Transfusion Reactions: No Reported Reaction Additional Past Anesthesia/Blood Transfusion Reaction / Comment(s): no hx blood transfusion Date of Last Stent Placement:: 11-29-2012 Type of Cardiac Device: Permanent Pacemaker Device Placement Date:: 12-01-2012 Past Psychological History: No Psychological Hx Reported Smoking Status: Former smoker - Past Family History Mother Family Medical History: Cancer, Myocardial Infarction (PA) Additional Family Medical History / Comment(s): breast ca Father Family Medical History: No Reported History, Diabetes Mellitus Additional Family Medical History / Comment(s): at age 94 Brother(s) Family Medical History: Congestive Heart Failure (CHF) Additional Family Medical History / Comment(s): heart valve replacement General Exam - General Exam Comments Initial Comments: GENERAL: Patient is well-developed and well-nourished. Patient is nontoxic and well- hydrated and is in no acute distress. ENT: Neck is soft and supple. No significant lymphadenopathy is noted. Oropharynx is clear. Moist mucous membranes. Neck has full range of motion without eliciting any pain. EYES: The sclera were anicteric and conjunctiva were pink and moist. Extraocular movements were intact and pupils were equal round and reactive to light. Eyelids were unremarkable. PULMONARY: Unlabored respirations. Good breath sounds bilaterally. No audible rales rhonchi or wheezing was noted. CARDIOVASCULAR: There is a regular rate and rhythm without any murmurs gallops or rubs. ABDOMEN: Soft and nontender with normal bowel sounds. SKIN: Skin is clear with no lesions or rashes and otherwise unremarkable. NEUROLOGIC: Patient is alert and oriented x3. Cranial nerves II through XII are grossly intact. Motor and sensory are also intact. Normal speech, volume and content. Symmetrical smile. MUSCULOSKELETAL: Patient has a deficit on the lateral aspect of his hip does appear that this is probably dislocated. Patient has good DP pulses on the left. There is exquisite pain and any attempt to move the left hip. LYMPHATICS: No significant lymphadenopathy is noted PSYCHIATRIC: Normal psychiatric evaluation. Limitations: no limitations Course Vital Signs 11/25/19 11/25/19 11/25/19 11:17 12:42 12:45 Temperature 97.2 F L Pulse Rate 65 60 60 Respiratory 16 20 16 Rate Blood Pressure 117/59 128/47 117/87 O2 Sat by Pulse 96 98 100 Oximetry 11/25/19 12:50 Temperature Pulse Rate 60 Respiratory 16 Rate Blood Pressure 134/55 O2 Sat by Pulse 100 Oximetry Procedures - Orthopedic Joint Reduction Joint #1 Consent Obtained: verbal consent Side: left Joint Reduction Location: hip Analgesia: procedural sedation Technique Used: traction/counter-traction Post-Reduction Neuro Exam: intact Post-Reduction Vascular Exam: intact Post Reduction X-Ray Obtained: Yes Post Reduction X-Ray Results: reduced Splint Applied: Yes Patient Tolerated Procedure: well - Procedural Sedation Procedural Sedation Start Time: 12:45 Procedural Sedation Stop Time: 13:05 Indications: fracture/dislocation reduction ASA Class: II Mallampati Airway Score: 2 Preparation: quality assurance monitor final applied, pulse oximeter, capnometry used, supplemental O2 applied, reversal agents at bedside IV Etomidate Dose (mgs): 25 Complications: none Patient Tolerated Procedure: well Disposition Clinical Impression: Dislocation, hip closed Disposition: HOME SELF-CARE Instructions (If sedation given, give patient instructions): Hip Dislocation (ED) Is patient prescribed a controlled substance at d/c from ED?: No Referrals: Oswald Quesada DO [Medical Doctor] - 11/28/19 Time of Disposition: 13:06
[2019-11-25] MEDS ORDERED: ETOMIDATE 2 MG/ML 10 ML VIAL IVP STA (12:35)
--- NOTE | 2019-11-25 12:38 | XR ---
EXAMINATION TYPE: XR Hip Complete LT DATE OF EXAM: 11/25/2019 COMPARISON: 05/23/2019 HISTORY: Fall, pain TECHNIQUE: Left hip is examined in 2 projections. FINDINGS: There is a femoral prosthesis with acetabular component. The femoral prosthesis is dislocat ed from the acetabular component. An acute fracture is not identified. IMPRESSION: 1. Dislocation of the femoral prosthesis from the acetabular component.
[2019-11-25 12:45] VITALS: PULSE 60
--- NOTE | 2019-11-25 13:08 | XR ---
EXAMINATION TYPE: XR Hip Limited LT DATE OF EXAM: 11/25/2019 CLINICAL HISTORY: Left hip pain after reduction. TECHNIQUE: Single AP portable view of left hip is obtained. COMPARISON: None. FINDINGS: Metallic hardware from left hip arthroplasty is seen and appears satisfactory in alignment and position in this single frontal view. There is heterotopic ossification noted cranially and late rally. Postsurgical change of the lumbar spine is partially visualized. There is diffuse osseous dem ineralization. IMPRESSION: Metallic hardware from left hip arthroplasty is satisfactory in position in the single fr ontal view.
[2019-11-25 13:53] VITALS: BP 142/72; RESP 20
== END 2019-11-25 13:55 | disposition home or self-care (01) ==
LOC: EC 11:13
DX: T84.021A Dislocation of internal left hip prosthesis, initial encounter (principal); I48.91 Unspecified atrial fibrillation; I25.10 Atherosclerotic heart disease of native coronary artery without angina pectoris; I11.0 Hypertensive heart disease with heart failure; I50.9 Heart failure, unspecified; F03.90 Unspecified dementia, unspecified severity, without behavioral disturbance, psychotic disturbance, mood disturbance, and anxiety; E78.5 Hyperlipidemia, unspecified; M19.90 Unspecified osteoarthritis, unspecified site; H40.9 Unspecified glaucoma; Z87.891 Personal history of nicotine dependence; Z79.01 Long term (current) use of anticoagulants; Z79.899 Other long term (current) drug therapy; Z85.828 Personal history of other malignant neoplasm of skin; Z98.890 Other specified postprocedural states; W01.0XXA Fall on same level from slipping, tripping and stumbling without subsequent striking against object, initial encounter; Y92.009 Unspecified place in unspecified non-institutional (private) residence as the place of occurrence of the external cause
CPT/HCPCS: 73501; 73502; 99284; 27265; 99152; 96374; J1170

== ENCOUNTER 2019-12-26 03:30 | Emergency (ER) | payer MEDICARE ==
[2019-12-26] MEDS ORDERED: fentaNYL (PF) 50 MCG/ML 2 ML AMP IVP STA (03:43)
[2019-12-26] MEDS ORDERED: PROPOFOL 10 MG/ML 20 ML VIAL IV ONE (03:45)
--- NOTE | 2019-12-26 03:46 | ED ---
General Adult HPI - General Chief complaint: Extremity Problem,Nontraumatic Stated complaint: L hip pain Time Seen by Provider: 12/26/19 03:33 Source: EMS Mode of arrival: EMS Limitations: no limitations - History of Present Illness Initial comments: Dictation was produced using [employer] dictation software. please excuse any grammatical, word or spelling errors. Chief Complaint: 84-year-old male was suspicion of left hip dislocation. History of Present Illness: His 84-year-old male presents today with concern of left hip dislocation. Patient has history of total hip replacement. He states he was getting out of bed when he felt his left hip pop. Patient is brought in by EMS. She states she has pain to her left hip traveling down the left leg. Denies any numbness or paresthesias. Patient was here approximately one month ago with same complaint. The ROS documented in this emergency department record has been reviewed and confirmed by me. Those systems with pertinent positive or negative responses have been documented in the HPI. All other systems are other negative and/or noncontributory. PHYSICAL EXAM: General Impression: Alert and oriented x3, not in acute distress HEENT: Normocephalic atraumatic, extra-ocular movements intact, pupils equal and reactive to light bilaterally, mucous membranes moist. Cardiovascular: Heart regular rate and rhythm, S1&S2 audible, no murmurs, rubs or gallops Chest: Lungs clear to auscultation bilaterally, no rhonchi, no wheeze, no rales Abdomen: Bowel sounds present, abdomen soft, non-tender, non-distended, no organomegaly Musculoskeletal: Pulses present and equal in all extremities, no peripheral edema, tenderness to palpation to the left hip, internally rotated left lower extremity Motor: no focal deficits noted Neurological: CN II-XII grossly intact, no focal motor or sensory deficits noted Skin: Intact with no visualized rashes Psych: Normal affect and mood ED course: 84-year-old male presents with left prosthetic hip dislocation. Vital signs upon arrival are within acceptable limits. X-ray obtained demonstrating a posterior prosthetic hip dislocation. Patient underwent procedural sedation using propofol. Captain Edward technique was used to reduce left hip. Patient tolerated procedure well. Patient was observed in emergency department after the procedural sedation and dislocation with no apparent events. Repeat x-ray was unremarkable. Patient states that he felt some pain which is unusual compared to last him he had a reduction. Computed tomography scan of the hip was obtained showing no acute processes. There is however some mild soft tissue calcifications. Postreduction physical examination revealed no weaknesses or neurologic deficits. - Related Data Home Medications Medication Instructions Recorded Confirmed Brinzolamide/Brimonidine Tart 1 drop BOTH EYES BID 12/11/15 10/17/19 [Simbrinza 1%-0.2% Eye Drops] Enalapril [Vasotec] 2.5 mg PO QAM 12/11/15 10/17/19 Metoprolol Tartrate 25 mg PO BID 12/11/15 10/17/19 Simvastatin [Zocor] 20 mg PO HS 12/11/15 10/17/19 Cholecalciferol [Vitamin D3 (25 5,000 unit PO DAILY 11/12/18 10/17/19 Mcg = 1000 Iu)] busPIRone HCL [Buspar] 7.5 mg PO BID 11/12/18 10/17/19 Acetaminophen [Tylenol Extra 1,000 mg PO Q6H PRN 10/17/19 10/17/19 Strength] Apixaban [Eliquis] 2.5 mg PO BID 10/17/19 10/17/19 Spironolactone 12.5 mg PO QAM 10/17/19 10/17/19 Previous Rx's Medication Instructions Recorded Digoxin [Lanoxin] 125 mcg PO MOWEFR tab 10/19/19 Furosemide [Lasix] 40 mg PO BID@0900,1600 30 Days #60 10/19/19 tab amLODIPine [Norvasc] 5 mg PO DAILY 30 Days #30 tab 10/19/19 oxyCODONE HCL/ACETAMINOPHEN 1 tablet PO DAILY 3 Days #3 tab 10/19/19 [Endocet 5-325 mg] predniSONE 10 mg PO DIRECTED 12 Days #30 10/19/19 tab Allergies Allergy/AdvReac Type Severity Reaction Status Date / Time No Known Allergies Allergy Verified 12/26/19 03:35 Review of Systems ROS Statement: Those systems with pertinent positive or pertinent negative responses have been documented in the HPI. ROS Other: All systems not noted in ROS Statement are negative. Past Medical History Past Medical History: Atrial Fibrillation, Coronary Artery Disease (CAD), Cancer, Heart Failure, COPD, Dementia, Eye Disorder, Hyperlipidemia, Hypertension, Osteoarthritis (OA) Additional Past Medical History / Comment(s): Cardiomyopathy, arthritis multiple joints, back pain, neuropathy bilateral hands/legs/feet, BPH with frequent night time urination, glaucoma bilateral eyes, skin cancer removed from scalp. History of Any Multi-Drug Resistant Organisms: None Reported Past Surgical History: Back Surgery, Heart Catheterization With Stent, Hernia Repair, Orthopedic Surgery, Pacemaker Additional Past Surgical History / Comment(s): PCI with 2 stents, pacemaker lt chest-[employer] mod # [id number] serial #[id number]- [employer] 4137-has card, total lt hip, cervical [id number] surgery, lumbar 3-5 disc repair- hardware present,aleksandra carpel tunnel, aleksandra cataracts removed/lens implants, abdominal hernia repair, colonoscopy. Past Anesthesia/Blood Transfusion Reactions: No Reported Reaction Additional Past Anesthesia/Blood Transfusion Reaction / Comment(s): no hx blood transfusion Date of Last Stent Placement:: 11-29-2012 Type of Cardiac Device: Permanent Pacemaker Device Placement Date:: 12-01-2012 Past Psychological History: No Psychological Hx Reported Smoking Status: Former smoker Past Alcohol Use History: None Reported Past Drug Use History: None Reported - Past Family History Mother Family Medical History: Cancer, Myocardial Infarction ([place]) Additional Family Medical History / Comment(s): breast ca Father Family Medical History: No Reported History, Diabetes Mellitus Additional Family Medical History / Comment(s): at age 94 Brother(s) Family Medical History: Congestive Heart Failure (CHF) Additional Family Medical History / Comment(s): heart valve replacement General Exam Limitations: no limitations Course Vital Signs 12/26/19 12/26/19 12/26/19 03:32 03:35 04:05 Temperature 97.9 F Pulse Rate 62 62 Respiratory 16 20 Rate Blood Pressure 131/109 143/75 137/95 O2 Sat by Pulse 95 100 Oximetry 12/26/19 12/26/19 12/26/19 04:10 04:15 04:20 Temperature Pulse Rate 68 60 60 Respiratory 20 16 20 Rate Blood Pressure 140/72 109/58 95/53 O2 Sat by Pulse 100 99 100 Oximetry 12/26/19 12/26/19 12/26/19 04:25 04:40 04:55 Temperature Pulse Rate 68 70 71 Respiratory 18 18 18 Rate Blood Pressure 103/59 146/72 126/69 O2 Sat by Pulse 98 100 97 Oximetry 12/26/19 05:10 Temperature Pulse Rate 67 Respiratory 18 Rate Blood Pressure 143/65 O2 Sat by Pulse 97 Oximetry Procedures - Orthopedic Joint Reduction Joint #1 Consent Obtained: verbal consent, written consent Side: left Joint Reduction Location: hip Analgesia: procedural sedation Shoulder Technique Used (if applicable): other (captain wolf) Post-Reduction Neuro Exam: intact Post-Reduction Vascular Exam: intact Post Reduction X-Ray Obtained: Yes Post Reduction X-Ray Results: reduced Splint Applied: Yes Patient Tolerated Procedure: well - Procedural Sedation Procedural Sedation Start Time: 04:05 Procedural Sedation Stop Time: 04:20 Indications: fracture/dislocation reduction ASA Class: III Mallampati Airway Score: 2 Preparation: equipment monitor phototypesetting applied, pulse oximeter, capnometry used, supplemental O2 applied, IV secured IV Propofol Dose (mgs): 65 Complications: none Patient Tolerated Procedure: well Disposition Clinical Impression: Hip dislocation, left Disposition: HOME SELF-CARE Condition: Good Instructions (If sedation given, give patient instructions): Moderate Sedation (ED), Hip Dislocation (ED) Is patient prescribed a controlled substance at d/c from ED?: No Referrals: Corey Kwok DO [Doctor of Osteopathic Medicine] - 1-2 days
--- NOTE | 2019-12-26 04:02 | XR ---
EXAMINATION TYPE: XR Hip LT and AP Pelvis DATE OF EXAM: 12/26/2019 COMPARISON: 11/25/2019 HISTORY: Hip pain TECHNIQUE: 3 views FINDINGS: There is left hip prosthesis. There is posterior dislocation of the prosthetic femoral head . The pelvic ring appears intact. There is multilevel posterior fusion surgery in the lumbar spine. IMPRESSION: Posterior dislocation of the left hip prosthesis similar to old exam. No fracture seen.
[2019-12-26] MEDS ORDERED: HYDROcodone/APAP 5-325MG 1 EACH TAB PO STA (04:15)
[2019-12-26 04:26] VITALS: RESP 18
--- NOTE | 2019-12-26 04:54 | XR ---
EXAMINATION TYPE: XR Hip Limited LT DATE OF EXAM: 12/26/2019 COMPARISON: NONE HISTORY: Post reduction TECHNIQUE: Single view FINDINGS: There is anatomic reduction of the prosthetic left hip joint. No fracture seen. IMPRESSION: Anatomic reduction.
--- NOTE | 2019-12-26 05:48 | CT ---
EXAMINATION TYPE: CT hip LT wo con DATE OF EXAM: 12/26/2019 COMPARISON: HISTORY: Left Hip pain CT DLP: 614.30 mGycm Automated exposure control for dose reduction was used. Multiple axial sections were obtained from the mid ileum to the mid femur without contrast. There is left hip prosthesis. Components are in anatomic position. Detail is limited by metal artifac t. Sacroiliac joint is intact. There is osteopenia. There is posterior fusion surgery in the lower selena mbar spine. There is atherosclerotic vascular calcification. Bladder distends smoothly. I see no acut e fracture. There are some calcifications around the femoral component of the prosthesis. There is no pathologic fluid collection. I see no soft tissue density mass. IMPRESSION: Soft tissue calcification around the femoral component of the prosthesis. No acute bony abnormality s een..
[2019-12-26] MEDS ORDERED: ACET/COD 300 MG/30 MG STARTER PACK 6 TAB BTL PO STA (06:23)
[2019-12-26 06:38] VITALS: BP 112/74; PULSE 67; TEMP 97.8
== END 2019-12-26 06:38 | disposition home or self-care (01) ==
LOC: EC 03:30
DX: T84.021A Dislocation of internal left hip prosthesis, initial encounter (principal); R93.7 Abnormal findings on diagnostic imaging of other parts of musculoskeletal system; I48.91 Unspecified atrial fibrillation; I25.10 Atherosclerotic heart disease of native coronary artery without angina pectoris; I11.0 Hypertensive heart disease with heart failure; I50.9 Heart failure, unspecified; F03.90 Unspecified dementia, unspecified severity, without behavioral disturbance, psychotic disturbance, mood disturbance, and anxiety; E78.5 Hyperlipidemia, unspecified; M19.90 Unspecified osteoarthritis, unspecified site; H40.9 Unspecified glaucoma; Z87.891 Personal history of nicotine dependence; Z79.01 Long term (current) use of anticoagulants; Z79.899 Other long term (current) drug therapy; Z85.828 Personal history of other malignant neoplasm of skin; Z95.0 Presence of cardiac pacemaker; Z95.5 Presence of coronary angioplasty implant and graft; Z96.698 Presence of other orthopedic joint implants; Y93.89 Activity, other specified; Y79.2 Prosthetic and other implants, materials and accessory orthopedic devices associated with adverse incidents
CPT/HCPCS: 73501; 73502; 73700; 99284; 27265; 99152; 96374; J3010; J2704

== ENCOUNTER 2020-01-13 04:17 | Emergency (ER) | payer MEDICARE ==
[2020-01-13 04:25] VITALS: TEMP 98
[2020-01-13] MEDS ORDERED: PROPOFOL 10 MG/ML 20 ML VIAL IV STA (04:26)
--- NOTE | 2020-01-13 04:57 | ED ---
Extremity Problem HPI - General Chief complaint: Extremity Problem,Nontraumatic Stated complaint: Hip dislocation Time Seen by Provider: 01/13/20 04:18 Source: patient, EMS Mode of arrival: EMS Limitations: no limitations - History of Present Illness Initial comments: Dino is a pleasant 84-year-old gentleman who presents to the ER today via ambulance for evaluation of left hip dislocation. This is the third dislocation in 2-1/2 months for this gentleman. He reports that he had a left hip prosthesis approximately 25 years ago, he has subsequently followed with orthopedic surgeon Dr. Bennett here in [facility]. Patient did have a fall in 2015 resulting in traumatic hip dislocation that was reduced in the ER. He did well until November of this year at which time he had an atraumatic dislocation which was again reduced in the emergency department, patient was seen again in December for the same. Patient has been unable follow up with outpatient setting with his orthopedic surgeon. Patient reports that tonight he was sleeping comfortably he woke to use the restroom and when he sat up to get out of bed his hip popped out. Patient called 911 and was transported hospital for reduction. - Related Data Home Medications Medication Instructions Recorded Confirmed Brinzolamide/Brimonidine Tart 1 drop BOTH EYES BID 12/11/15 10/17/19 [Simbrinza 1%-0.2% Eye Drops] Enalapril [Vasotec] 2.5 mg PO QAM 12/11/15 10/17/19 Metoprolol Tartrate 25 mg PO BID 12/11/15 10/17/19 Simvastatin [Zocor] 20 mg PO HS 12/11/15 10/17/19 Cholecalciferol [Vitamin D3 (25 5,000 unit PO DAILY 11/12/18 10/17/19 Mcg = 1000 Iu)] busPIRone HCL [Buspar] 7.5 mg PO BID 11/12/18 10/17/19 Acetaminophen [Tylenol Extra 1,000 mg PO Q6H PRN 10/17/19 10/17/19 Strength] Apixaban [Eliquis] 2.5 mg PO BID 10/17/19 10/17/19 Spironolactone 12.5 mg PO QAM 10/17/19 10/17/19 Previous Rx's Medication Instructions Recorded Digoxin [Lanoxin] 125 mcg PO MOWEFR tab 10/19/19 Furosemide [Lasix] 40 mg PO BID@0900,1600 30 Days #60 10/19/19 tab amLODIPine [Norvasc] 5 mg PO DAILY 30 Days #30 tab 10/19/19 oxyCODONE HCL/ACETAMINOPHEN 1 tablet PO DAILY 3 Days #3 tab 10/19/19 [Endocet 5-325 mg] predniSONE 10 mg PO DIRECTED 12 Days #30 10/19/19 tab Allergies Allergy/AdvReac Type Severity Reaction Status Date / Time No Known Allergies Allergy Verified 12/26/19 03:35 Review of Systems ROS Statement: Those systems with pertinent positive or pertinent negative responses have been documented in the HPI. ROS Other: All systems not noted in ROS Statement are negative. Past Medical History Past Medical History: Atrial Fibrillation, Coronary Artery Disease (CAD), Cancer, Heart Failure, COPD, Dementia, Eye Disorder, Hyperlipidemia, Hypertension, Osteoarthritis (OA) Additional Past Medical History / Comment(s): Cardiomyopathy, arthritis multiple joints, back pain, neuropathy bilateral hands/legs/feet, BPH with frequent night time urination, glaucoma bilateral eyes, skin cancer removed from scalp. History of Any Multi-Drug Resistant Organisms: None Reported Past Surgical History: Back Surgery, Heart Catheterization With Stent, Hernia Repair, Orthopedic Surgery, Pacemaker Additional Past Surgical History / Comment(s): PCI with 2 stents, pacemaker lt chest-[employer] mod # [id number] serial #[id number]- [employer] [id number]-has card, total lt hip, cervical [id number] surgery, lumbar 3-5 disc repair- hardware present,aleksandra carpel tunnel, aleksandra cataracts removed/lens implants, abdominal hernia repair, colonoscopy. Past Anesthesia/Blood Transfusion Reactions: No Reported Reaction Additional Past Anesthesia/Blood Transfusion Reaction / Comment(s): no hx blood transfusion Date of Last Stent Placement:: 11-29-2012 Type of Cardiac Device: Permanent Pacemaker Device Placement Date:: 12-01-2012 Past Psychological History: No Psychological Hx Reported Smoking Status: Former smoker Past Alcohol Use History: None Reported Past Drug Use History: None Reported - Past Family History Mother Family Medical History: Cancer, Myocardial Infarction ([place]) Additional Family Medical History / Comment(s): breast ca Father Family Medical History: No Reported History, Diabetes Mellitus Additional Family Medical History / Comment(s): at age 94 Brother(s) Family Medical History: Congestive Heart Failure (CHF) Additional Family Medical History / Comment(s): heart valve replacement General Exam - General Exam Comments Initial Comments: Physical Exam GENERAL: Patient is well-developed and well-nourished. Patient is nontoxic and well-hydrated and is in no distress. HENT: Normocephalic, Atraumatic. EYES: PERRL, EOMI PULMONARY: Unlabored respirations. CARDIOVASCULAR: RRR Warm and well perfused extremities ABDOMEN: Non-distended SKIN: No rashes or bruising : Deferred NEUROLOGIC: Alert and oriented Normal speech MUSCULOSKELETAL: Left leg is shortened and internally rotated Neurovascularly intact PSYCHIATRIC: No SI/HI Limitations: no limitations Course Vital Signs 01/13/20 01/13/20 01/13/20 04:18 04:36 04:38 Temperature 98 F Pulse Rate 60 50 L 52 L Respiratory 18 18 16 Rate Blood Pressure 145/100 157/100 98/60 O2 Sat by Pulse 94 L 97 99 Oximetry 01/13/20 01/13/20 01/13/20 04:41 04:45 05:00 Temperature Pulse Rate 60 60 61 Respiratory 17 18 17 Rate Blood Pressure 86/50 88/52 102/63 O2 Sat by Pulse 100 100 100 Oximetry 01/13/20 01/13/20 05:15 05:30 Temperature Pulse Rate 60 60 Respiratory 18 18 Rate Blood Pressure 105/75 107/59 O2 Sat by Pulse 97 97 Oximetry Procedures - [place] Protocol (Time Out) Procedure Performed:: Procedural sedation and left hip reduction Performing Provider: Binta Cerrato Nurse: Galilea Desir Timeout Date: 01/13/20 Timeout Time: 04:35 Patient Identification (2 identifiers required): Chart, Verbal, Arm Band, Name, Birthdate Patient/Legal [employer] Support [employer] has Confirmed: Identity, Site, Procedure, Consent Site: left hip Site Marked: No Site Verified With Patient/Guardian: Yes Final Confirmation: Procedure, Site, Laterality, Patient Position, Radiographs, Confirmed w/Provider - Orthopedic Joint Reduction Joint #1 Consent Obtained: verbal consent, written consent Side: left Joint Reduction Location: hip Analgesia: procedural sedation Technique Used: traction/counter-traction Post-Reduction Neuro Exam: intact Post-Reduction Vascular Exam: intact Post Reduction X-Ray Obtained: Yes Post Reduction X-Ray Results: reduced Splint Applied: Yes Patient Tolerated Procedure: well - Procedural Sedation Procedural Sedation Start Time: 04:35 Procedural Sedation Stop Time: 04:41 Indications: fracture/dislocation reduction ASA Class: II Mallampati Airway Score: 2 Preparation: monitor car operator applied, pulse oximeter, capnometry used, supplemental O2 applied, reversal agents at bedside, suction/airway equipment at bedside, IV secured IV Propofol Dose (mgs): 80 Complications: hypoxia Interventions: oxygen applied, airway repositioned Patient Tolerated Procedure: well Medical Decision Making - Medical Decision Making Patient was seen and evaluated history and physical exam are consistent with a recurrent posterior left hip dislocation x-ray confirms dislocation, patient was sedated with propofol dislocation was successfully patient did have some hypoxia during the sedation was given oxygen by nonrebreather. Patient care was discussed with Dr. Weiss who agrees patient will likely require surgical repair of the hip due to the recurrent dislocations however states that the current coronavirus pandemic would not recommend admission to the hospital for an elective procedure this time. Does recommend placing the patient's left leg in a knee immobilizer which was completed. States that Dr. Bennett patient's personal surgeon will have office hours today and is available to see the patient. Patient states his will be able to take to the office today. Patient recovered well from sedation, reported some persistent pain and left hip and was given a by mouth [place]. Patient awake alert oriented stable for discharge home at 545 morning however his is unable to drive until the son is of therefore he will reading in the emergency department until his is available to pick him up. Disposition Clinical Impression: Hip dislocation, left Disposition: HOME SELF-CARE Instructions (If sedation given, give patient instructions): Moderate Sedation (ED) Additional Instructions: Call Dr Bennett office today at 8 AM to schedule a follow-up visit later today Is patient prescribed a controlled substance at d/c from ED?: No Referrals: Jean Gutierrez MD [Primary Care Provider] - 1-2 days
--- NOTE | 2020-01-13 05:01 | XR ---
EXAMINATION TYPE: XR Hip Limited LT DATE OF EXAM: 01/13/2020 COMPARISON: 12/26/2019 HISTORY: Dislocation TECHNIQUE: Single view FINDINGS: There is a posterior lateral dislocation of the prosthetic femoral head. I see no fracture line. IMPRESSION: Dislocated hip prosthesis.
--- NOTE | 2020-01-13 05:01 | XR ---
EXAMINATION TYPE: XR Hip Limited LT DATE OF EXAM: 01/13/2020 COMPARISON: NONE HISTORY: Post reduction TECHNIQUE: FINDINGS: A single view shows anatomic reduction of the prosthetic femoral head. I see no fracture li rashel. IMPRESSION: Anatomic reduction.
[2020-01-13] MEDS ORDERED: HYDROcodone/APAP 5-325MG 1 EACH TAB PO STA (05:28)
[2020-01-13 06:57] VITALS: BP 120/69; PULSE 61; RESP 18
== END 2020-01-13 07:26 | disposition home or self-care (01) ==
LOC: EC 04:17
DX: T84.021A Dislocation of internal left hip prosthesis, initial encounter (principal); R09.02 Hypoxemia; I42.9 Cardiomyopathy, unspecified; I25.10 Atherosclerotic heart disease of native coronary artery without angina pectoris; I11.0 Hypertensive heart disease with heart failure; I50.9 Heart failure, unspecified; I48.91 Unspecified atrial fibrillation; J44.9 Chronic obstructive pulmonary disease, unspecified; E78.5 Hyperlipidemia, unspecified; F03.90 Unspecified dementia, unspecified severity, without behavioral disturbance, psychotic disturbance, mood disturbance, and anxiety; Z79.01 Long term (current) use of anticoagulants; Z79.899 Other long term (current) drug therapy; Z87.891 Personal history of nicotine dependence; Z95.0 Presence of cardiac pacemaker; Z95.5 Presence of coronary angioplasty implant and graft; Z85.828 Personal history of other malignant neoplasm of skin
CPT/HCPCS: 99284; 27265; 96374; 73501; L1830; J2704

== ENCOUNTER 2020-01-26 14:22 | Emergency (ER) | payer MEDICARE ==
[2020-01-26] MEDS ORDERED: MIDAZOLAM 1 MG/ML 5 ML VIAL IV STA (14:27)
[2020-01-26] MEDS ORDERED: PROPOFOL 10 MG/ML 20 ML VIAL IV ONE (14:31)
--- NOTE | 2020-01-26 14:34 | ED ---
Lower Extremity Injury HPI - General Source: patient, EMS, RN notes reviewed, old records reviewed Mode of arrival: EMS - History of Present Illness MD Complaint: hip injury <Grayson Sheffield - Last Filed: 01/26/20 16:19> <Lesli Lainez - Last Filed: 01/26/20 23:55> - General Stated Complaint: L Hip Dislocation Time Seen by Provider: 01/26/20 14:22 - History of Present Illness Initial Comments: This 84-year-old male with a history of a left hip replacement in the past who states he was sitting on a toilet today and was left hip popped out of joint. He had a similar experience about 2 weeks ago. He complained of a lot of pain EMS was called and they bring him to this facility. He was given IV fentanyl and route with some improvement in his pain. The left lower sternal he was shortened and rotated. No other injury reported. No fall reported. (Grayson Sheffield) - Related Data Home Medications Medication Instructions Recorded Confirmed Brinzolamide/Brimonidine Tart 1 drop BOTH EYES BID 12/11/15 01/26/20 [Simbrinza 1%-0.2% Eye Drops] Enalapril [Vasotec] 2.5 mg PO DAILY 12/11/15 01/26/20 Metoprolol Tartrate 25 mg PO BID 12/11/15 01/26/20 Simvastatin [Zocor] 20 mg PO HS 12/11/15 01/26/20 busPIRone HCL [Buspar] 7.5 mg PO BID 11/12/18 01/26/20 Apixaban [Eliquis] 2.5 mg PO BID 10/17/19 01/26/20 Spironolactone 12.5 mg PO DAILY 10/17/19 01/26/20 Albuterol Nebulized [Ventolin 2.5 mg INHALATION RT-QID 01/26/20 01/26/20 Nebulized] Cholecalciferol (Vitamin D3) 125 mcg PO DAILY 01/26/20 01/26/20 [Vitamin D3] Furosemide [Lasix] 40 mg PO DAILY 01/26/20 01/26/20 Gabapentin [Neurontin] 100 mg PO QID 01/26/20 01/26/20 Previous Rx's Medication Instructions Recorded Digoxin [Lanoxin] 125 mcg PO MOWEFR tab 10/19/19 amLODIPine [Norvasc] 5 mg PO DAILY 30 Days #30 tab 10/19/19 Allergies Allergy/AdvReac Type Severity Reaction Status Date / Time No Known Allergies Allergy Verified 01/26/20 17:28 Review of Systems ROS Other: All systems not noted in ROS Statement are negative. <Grayson Sheffield - Last Filed: 01/26/20 16:19> ROS Other: All systems not noted in ROS Statement are negative. <Lesli Lainez - Last Filed: 01/26/20 23:55> ROS Statement: Those systems with pertinent positive or pertinent negative responses have been documented in the HPI. Past Medical History Past Medical History: Atrial Fibrillation, Coronary Artery Disease (CAD), Cancer, Heart Failure, COPD, Dementia, Eye Disorder, Hyperlipidemia, Hypertension, Osteoarthritis (OA) Additional Past Medical History / Comment(s): Cardiomyopathy, arthritis multiple joints, back pain, neuropathy bilateral hands/legs/feet, BPH with frequent night time urination, glaucoma bilateral eyes, skin cancer removed from scalp. History of Any Multi-Drug Resistant Organisms: None Reported Past Surgical History: Back Surgery, Heart Catheterization With Stent, Hernia Repair, Orthopedic Surgery, Pacemaker Additional Past Surgical History / Comment(s): PCI with 2 stents, pacemaker lt chest-[employer] mod # [id number] serial #[id number]- [employer] 4137-has card, total lt hip, cervical [id number] surgery, lumbar 3-5 disc repair- hardware present,aleksandra carpel tunnel, aleksandra cataracts removed/lens implants, abdominal hernia repair, colonoscopy. Past Anesthesia/Blood Transfusion Reactions: No Reported Reaction Additional Past Anesthesia/Blood Transfusion Reaction / Comment(s): no hx blood transfusion Date of Last Stent Placement:: 11-29-2012 Type of Cardiac Device: Permanent Pacemaker Device Placement Date:: 12-01-2012 Past Psychological History: No Psychological Hx Reported Smoking Status: Former smoker Past Alcohol Use History: None Reported Past Drug Use History: None Reported - Past Family History Mother Family Medical History: Cancer, Myocardial Infarction ([place]) Additional Family Medical History / Comment(s): breast ca Father Family Medical History: No Reported History, Diabetes Mellitus Additional Family Medical History / Comment(s): at age 94 Brother(s) Family Medical History: Congestive Heart Failure (CHF) Additional Family Medical History / Comment(s): heart valve replacement <Grayson Sheffield Last Filed: 01/26/20 16:19> General Exam General appearance: alert, anxious, in distress Head exam: Present: atraumatic, normocephalic, normal inspection Eye exam: Present: normal appearance, PERRL, EOMI. Absent: scleral icterus, conjunctival injection, periorbital swelling ENT exam: Present: normal exam, mucous membranes moist Neck exam: Present: normal inspection. Absent: tenderness, meningismus, lymphadenopathy Respiratory exam: Present: normal lung sounds bilaterally. Absent: respiratory distress, wheezes, rales, rhonchi, stridor Cardiovascular Exam: Present: regular rate, normal rhythm, normal heart sounds. Absent: systolic murmur, diastolic murmur, rubs, gallop, clicks GI/Abdominal exam: Present: soft, normal bowel sounds. Absent: distended, tenderness, guarding, rebound, rigid Extremities exam: Present: tenderness, normal capillary refill. Absent: full ROM (The left hip is palpable and subluxed. The lower extremity and the left is shortened consistent with a subluxation of the hip. The neurovascular exam remains intact.), pedal edema, joint swelling, calf tenderness Back exam: Present: normal inspection Neurological exam: Present: alert, oriented X3, CN II-XII intact Psychiatric exam: Present: normal affect, normal mood Skin exam: Present: warm, dry, intact, normal color. Absent: rash <Grayson Sheffield Last Filed: 01/26/20 16:19> - General Exam Comments Initial Comments: This is a well-developed asthenic appearing male who is awake alert oriented 3 (Grayson Sheffield) Course <Grayson Sheffield - Last Filed: 01/26/20 16:19> Vital Signs 01/26/20 01/26/20 01/26/20 14:25 15:00 15:28 Temperature 96.8 F L Pulse Rate 60 60 Respiratory 20 18 Rate Blood Pressure 132/65 147/75 O2 Sat by Pulse 87 L 91 L 88 L Oximetry 01/26/20 01/26/20 01/26/20 15:35 15:45 15:50 Temperature Pulse Rate 60 60 60 Respiratory 18 16 16 Rate Blood Pressure 144/71 92/44 87/38 O2 Sat by Pulse 90 L 95 95 Oximetry 01/26/20 01/26/2020 15:55 16:05 16:10 Temperature Pulse Rate 60 60 60 Respiratory 16 16 18 Rate Blood Pressure 92/41 95/64 95/61 O2 Sat by Pulse 95 96 91 L Oximetry 01/26/20 01/26/20 01/26/20 16:28 17:00 17:50 Temperature 97.6 F Pulse Rate 60 60 61 Respiratory 18 18 18 Rate Blood Pressure 129/71 113/96 112/77 O2 Sat by Pulse 89 L 90 L 90 L Oximetry 01/26/20 01/26/20 01/26/20 18:15 18:23 18:40 Temperature Pulse Rate 60 60 79 Respiratory 18 Rate Blood Pressure 103/67 O2 Sat by Pulse 90 L Oximetry - Reevaluation(s) Reevaluation #1: 01/26/20 15:54 IV sedation performed by Dr. Lainez (Grayson Sheffield) Reevaluation #2: 01/26/20 16:18 I did reevaluate the patient did require some IV fluids her blood pressure. He is still somewhat groggy. I did discuss the case with orthopedics patient will be discharged she does have a brace at home he is a call Dr. Bennett tomorrow morning (Grayson Sheffield) Reevaluation #3: 01/26/20 16:20 The patient is endorsed to Dr. Lainez (Grayson Sheffield) Procedures - Orthopedic Joint Reduction Joint #1 Consent Obtained: verbal consent Side: left Joint Reduction Location: hip Analgesia: procedural sedation Post-Reduction Neuro Exam: intact Post-Reduction Vascular Exam: intact Post Reduction X-Ray Obtained: Yes Post Reduction X-Ray Results: reduced Patient Tolerated Procedure: well (Left hip was reduced by me using a Edward te chnique without difficulty. Patient was sedated and tolerated this well. There was good neurovascular exam afterwards.) <Grayson Sheffield - Last Filed: 01/26/20 16:19> - Procedural Sedation Procedural Sedation Start Time: 15:38 Procedural Sedation Stop Time: 16:15 Indications: fracture/dislocation reduction ASA Class: III Mallampati Airway Score: 2 Preparation: pvc monitor applied, pulse oximeter, capnometry used, supplemental O2 applied, suction/airway equipment at bedside, IV secured Midazolam: IV IV Propofol Dose (mgs): 40 (cc) Complications: none Patient Tolerated Procedure: well, no complications <Lesli Lainez - Last Filed: 01/26/20 23:55> Medical Decision Making - Radiology Data Radiology results: report reviewed, image reviewed (Imaging was reviewed the initial x-ray showed evidence of a subluxed left hip prosthesis after the procedure it was in good alignment.) <Grayson Sheffield - Last Filed: 01/26/20 16:19> Disposition Is patient prescribed a controlled substance at d/c from ED?: No <Grayson Sheffield - Last Filed: 01/26/20 16:19> <Lesli Lainez - Last Filed: 01/26/20 23:55> Clinical Impression: Dislocation of hip joint prosthesis, Dehydration Disposition: HOME SELF-CARE Condition: Good Instructions (If sedation given, give patient instructions): Hip Dislocation (ED) Additional Instructions: Patient does have a brace he is to wear his brace per orthopedics, call Dr. Bennett in the morning. Referrals: Jean Gutierrez MD [Primary Care Provider] - 1-2 days
[2020-01-26] MEDS ORDERED: HYDROmorphone 1 MG/ML 1 ML SYRINGE IVP STA (15:11)
--- NOTE | 2020-01-26 15:13 | XR ---
EXAMINATION TYPE: AP view pelvis and 2 views left hip DATE OF EXAM: 01/26/2020 COMPARISON: 12/26/2019 HISTORY: 84-year-old male left hip dislocation, pain FINDINGS: Posterior lumbosacral fusion hardware. Marked osteopenia. Degenerative changes of the right hip. Calc ifications in the expected hamstrings origin on the right suggesting chronic tendinopathy. Redemonstrated at left hip total arthroplasty. There is recurrent prosthetic posterosuperior hip disl ocation. Prominent heterotopic ossification along the superior aspect of the hip. 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 Marked osteopenia.
--- NOTE | 2020-01-26 15:55 | XR ---
Limited left hip HISTORY: Dislocation Single frontal view of the left hip correlated to prior exam and same dated earlier time There has been interval reduction of patient's hip dislocation in this single view. Reduced bone mine ralization could limit sensitivity. Heterotopic bone formation present at the soft tissues at the lev el of the left hip. There are vascular calcifications. Postop changes are noted to the lumbosacral sp ine. IMPRESSION: Interval reduction left hip.
[2020-01-26] MEDS ORDERED: SODIUM CHLORIDE 0.9% 500 ML 500 ML IV STA (16:01)
[2020-01-26 16:13] VITALS: RESP 18
[2020-01-26] MEDS ORDERED: IPRATROPIUM-ALBUTEROL 3 ML NEB INHALATION STA (17:54)
[2020-01-26] MEDS ORDERED: methylPREDNISolone SOD SUCCI 125 MG/2 ML VIAL IV STA (17:54)
[2020-01-26 18:05] VITALS: TEMP 97.6
[2020-01-26 18:55] VITALS: BP 103/67; PULSE 79
== END 2020-01-26 19:37 | disposition home or self-care (01) ==
LOC: EC 14:22
DX: T84.021A Dislocation of internal left hip prosthesis, initial encounter (principal); E86.0 Dehydration; I48.91 Unspecified atrial fibrillation; I25.10 Atherosclerotic heart disease of native coronary artery without angina pectoris; I11.0 Hypertensive heart disease with heart failure; I50.9 Heart failure, unspecified; E78.5 Hyperlipidemia, unspecified; G62.9 Polyneuropathy, unspecified; Z79.01 Long term (current) use of anticoagulants; Z79.899 Other long term (current) drug therapy; Z95.5 Presence of coronary angioplasty implant and graft; Z85.828 Personal history of other malignant neoplasm of skin; Z87.891 Personal history of nicotine dependence; Z95.0 Presence of cardiac pacemaker; Y79.2 Prosthetic and other implants, materials and accessory orthopedic devices associated with adverse incidents
CPT/HCPCS: 94640; 73501; 73502; 99284; 99152; 99153; 27265; J2930; J2250; J1170; J2704

== ENCOUNTER 2020-02-14 06:13 | Emergency (ER) | payer MEDICARE ==
[2020-02-14] MEDS ORDERED: HYDROmorphone 0.5 MG/0.5 ML SYRINGE IVP STA (06:18)
[2020-02-14 06:22] VITALS: TEMP 97.9
--- NOTE | 2020-02-14 06:27 | ED ---
Lower Extremity Injury HPI <Grayson Sheffield - Last Filed: 02/14/20 09:21> - General Source: patient, EMS Mode of arrival: EMS Limitations: physical limitation <Denise Ravi - Last Filed: 02/14/20 09:26> - General Stated Complaint: Lt Hip displacement Time Seen by Provider: 02/14/20 06:13 - History of Present Illness Initial Comments: 84yo male with history of 3 previous left hip dislocation (spontaneous)- presenting today for cc of hip dislocation. Patient states just prior to arrival he was in bed went to roll over/change positions with his hip "popped out again". Denies falls, direct trauma. Patient denies loss of sensation/weakness/foot drop--but states he has severe pain in the area as he has had with his previous dislocations. Ptient states due to Covid19 he has not been able to have hip surgery as originally planned with his orthopedic surgeon Dr. Cortez. Patient denies any other complaints today. EMS transported patient to hospital-given 10mg of morphine prior to arrival, patient continue to complain of pain on arrival. (Denise Ravi) - Related Data Home Medications Medication Instructions Recorded Confirmed Brinzolamide/Brimonidine Tart 1 drop BOTH EYES BID 12/11/15 01/26/20 [Simbrinza 1%-0.2% Eye Drops] Enalapril [Vasotec] 2.5 mg PO DAILY 12/11/15 01/26/20 Metoprolol Tartrate 25 mg PO BID 12/11/15 01/26/20 Simvastatin [Zocor] 20 mg PO HS 12/11/15 01/26/20 busPIRone HCL [Buspar] 7.5 mg PO BID 11/12/18 01/26/20 Apixaban [Eliquis] 2.5 mg PO BID 10/17/19 01/26/20 Spironolactone 12.5 mg PO DAILY 10/17/19 01/26/20 Albuterol Nebulized [Ventolin 2.5 mg INHALATION RT-QID 01/26/20 01/26/20 Nebulized] Cholecalciferol (Vitamin D3) 125 mcg PO DAILY 01/26/20 01/26/20 [Vitamin D3] Furosemide [Lasix] 40 mg PO DAILY 01/26/20 01/26/20 Gabapentin [Neurontin] 100 mg PO QID 01/26/20 01/26/20 Previous Rx's Medication Instructions Recorded Digoxin [Lanoxin] 125 mcg PO MOWEFR tab 10/19/19 amLODIPine [Norvasc] 5 mg PO DAILY 30 Days #30 tab 10/19/19 Allergies Allergy/AdvReac Type Severity Reaction Status Date / Time No Known Allergies Allergy Verified 01/26/20 17:28 Review of Systems ROS Other: All systems not noted in ROS Statement are negative. <Grayson Sheffield - Last Filed: 02/14/20 09:21> ROS Other: All systems not noted in ROS Statement are negative. <Denise Ravi - Last Filed: 02/14/20 09:26> ROS Statement: Those systems with pertinent positive or pertinent negative responses have been documented in the HPI. Past Medical History Past Medical History: Atrial Fibrillation, Coronary Artery Disease (CAD), Cancer, Heart Failure, COPD, Dementia, Eye Disorder, Hyperlipidemia, Hypertension, Osteoarthritis (OA) Additional Past Medical History / Comment(s): Cardiomyopathy, arthritis multiple joints, back pain, neuropathy bilateral hands/legs/feet, BPH with frequent night time urination, glaucoma bilateral eyes, skin cancer removed from scalp. History of Any Multi-Drug Resistant Organisms: None Reported Past Surgical History: Back Surgery, Heart Catheterization With Stent, Hernia Repair, Orthopedic Surgery, Pacemaker Additional Past Surgical History / Comment(s): PCI with 2 stents, pacemaker lt chest-[employer] mod # [id number] serial #[id number]- [employer] [id number]-has card, total lt hip, cervical [id number] surgery, lumbar 3-5 disc repair-hardware present,aleksandra carpel tunnel, aleksandra cataracts removed/lens implants, abdominal hernia repair, colonoscopy. Past Anesthesia/Blood Transfusion Reactions: No Reported Reaction Additional Past Anesthesia/Blood Transfusion Reaction / Comment(s): no hx blood transfusion Date of Last Stent Placement:: 11-29-2012 Type of Cardiac Device: Permanent Pacemaker Device Placement Date:: 12-01-2012 Past Psychological History: No Psychological Hx Reported Smoking Status: Former smoker Past Alcohol Use History: None Reported Past Drug Use History: None Reported - Past Family History Mother Family Medical History: Cancer, Myocardial Infarction ([place]) Additional Family Medical History / Comment(s): breast ca Father Family Medical History: No Reported History, Diabetes Mellitus Additional Family Medical History / Comment(s): at age 94 Brother(s) Family Medical History: Congestive Heart Failure (CHF) Additional Family Medical History / Comment(s): heart valve replacement <Denise Ravi - Last Filed: 02/14/20 09:26> General Exam Limitations: physical limitation <KermitjimFabyDenise L - Last Filed: 02/14/20 09:26> Course <Grayson Sheffield - Last Filed: 02/14/20 09:21> <Denise Ravi - Last Filed: 02/14/20 09:26> Vital Signs 02/14/20 02/14/20 02/14/20 06:17 06:20 07:00 Temperature 97.9 F Pulse Rate 61 60 Respiratory 22 18 Rate Blood Pressure 161/72 132/65 O2 Sat by Pulse 88 L 93 L 92 L Oximetry 02/14/20 02/14/20 02/14/20 07:50 07:55 08:00 Temperature Pulse Rate 60 58 L 60 Respiratory 22 18 8 L Rate Blood Pressure 141/113 116/63 108/54 O2 Sat by Pulse 94 L 95 84 L Oximetry 02/14/20 02/14/20 02/14/20 08:05 08:15 08:30 Temperature Pulse Rate 60 59 L 61 Respiratory 12 16 18 Rate Blood Pressure 94/52 107/64 120/76 O2 Sat by Pulse 98 98 98 Oximetry 02/14/20 02/14/20 02/14/20 08:34 08:45 09:00 Temperature Pulse Rate 60 61 60 Respiratory 18 16 16 Rate Blood Pressure 120/76 123/60 155/66 O2 Sat by Pulse 99 95 92 L Oximetry - Reevaluation(s) Reevaluation #1: 02/14/20 09:21 PA supervision: I proceeded [id number] evaluation the patient he did present with complaints of left hip pain and did demonstrate evidence of a subluxation of his prosthetic left hip. He's had previous episodes of same. We did reduce the hip while the patient was given IV sedation. It was a successful reduction. X-ray did show return to normal anatomical alignment. The case is discussed with orthopedics patient will be discharged home with reevaluation the office. (Grayson Sheffield) Reevaluation #2: 02/14/20 09:23 Spoke with Donald Mares-who recommends discharge with f/u in office- appointment scheduled for 12:30PM 02/15/20, (Denise Ravi) Procedures - Procedural Sedation Procedural Sedation Start Time: 07:53 Procedural Sedation Stop Time: 08:20 Indications: fracture/dislocation reduction ASA Class: III Mallampati Airway Score: 2 Preparation: b operator applied, pulse oximeter, capnometry used, supplemental O2 applied, reversal agents at bedside, suction/airway equipment at bedside, IV secured IV Propofol Dose (mgs): 75 Complications: Respiratory Depression-Repositioning Required Interventions: assist by BVM Patient Tolerated Procedure: well <Grayson Sheffield - Last Filed: 02/14/20 09:21> - Orthopedic Joint Reduction Joint #1 Consent Obtained: verbal consent, written consent Side: left Joint Reduction Location: hip Analgesia: procedural sedation (Propofol 75) Technique Used: traction/counter-traction, other (Edward Maneuver) Post-Reduction Neuro Exam: intact Post-Reduction Vascular Exam: intact Post Reduction X-Ray Obtained: Yes Post Reduction X-Ray Results: reduced Splint Applied: No Patient Tolerated Procedure: other (Some mild apnea-bagged for 1 minute-patient respiration rate then increased/oxygenating well) <Denise Ravi - Last Filed: 02/14/20 09:26> - Procedural Sedation Additional Comments: Patient did require bag valve mask assistance for several minutes as his saturations dropped into the mid 80s. This was short-lived and he did respond well. (Grayson Sheffield) Medical Decision Making <Denise Ravi - Last Filed: 02/14/20 09:26> - Medical Decision Making 84-year-old male presenting today for chief complaint of left hip pain patient has had multiple dislocations mostly to the posterior lateral. Imaging studies reveal dislocation (left sided opposed to what is read as right). Reduction performed- with attending Dr. Sheffield. Pt neurovascularly intact. Patient provided abduction pillow. Orthopedic information services vice president Donald Mares recommended discharge with f/u tomorrow in office at 12:30 (now scheduled). (Denise Ravi) Disposition <Grayson Sheffield - Last Filed: 02/14/20 09:21> Is patient prescribed a controlled substance at d/c from ED?: No Time of Disposition: 08:52 <Denise Ravi - Last Filed: 02/14/20 09:26> Clinical Impression: Hip dislocation, left, Left hip pain Disposition: HOME SELF-CARE Condition: Good Instructions (If sedation given, give patient instructions): Hip Dislocation (ED) Additional Instructions: Please use medication as discussed. Please follow-up with Dr. Cortez tomorrow at 12:30 PM tomorrow 02/15/2020. Please return to emergency room if the symptoms increase or worsen or for any other concerns. Referrals: Jean Gutierrez MD [Primary Care Provider] - 1-2 days
[2020-02-14] MEDS ORDERED: SODIUM CHLORIDE 0.9% 1,000 ML IV SCH (07:15)
--- NOTE | 2020-02-14 07:19 | XR ---
EXAM: XR Left Hip With Pelvis When Performed, 1 View CLINICAL HISTORY: Reason: hip dislocation TECHNIQUE: Frontal view of the left hip with pelvis when performed. COMPARISON: 01/26/20 FINDINGS: Bones/joints: There is dislocation of the right hip prosthesis, with the femoral head component displaced posteriorly with respect to the acetabular component. No evidence of acute fracture. Again seen is focal osteopenia regional to both the acetabular and femoral components. Soft tissues: Unremarkable. IMPRESSION: Right hip prosthesis dislocation. No definite fracture.
[2020-02-14] MEDS: PROPOFOL 10 MG/ML 20 ML VIAL IV ONE ×2 (07:33→07:53)
--- NOTE | 2020-02-14 08:36 | XR ---
EXAMINATION TYPE: XR Hip Limited LT DATE OF EXAM: 02/14/2020 CLINICAL HISTORY: Post reduction left hip TECHNIQUE: Single AP portable view of the left hip is submitted. COMPARISON: From earlier in the day FINDINGS: There is been relocation of the left prosthetic femoral head with relation to the prostheti c acetabulum. No fracture is seen. Heterotopic soft tissue ossification noted. IMPRESSION:There is been relocation of the left prosthetic femoral head with relation to the prosthet ic acetabulum.
[2020-02-14 11:49] VITALS: BP 123/65; PULSE 71; RESP 20
== END 2020-02-14 11:35 | disposition home or self-care (01) ==
LOC: EC 06:13
DX: T84.020A Dislocation of internal right hip prosthesis, initial encounter (principal); I48.91 Unspecified atrial fibrillation; I25.10 Atherosclerotic heart disease of native coronary artery without angina pectoris; I11.0 Hypertensive heart disease with heart failure; I50.9 Heart failure, unspecified; J44.9 Chronic obstructive pulmonary disease, unspecified; E78.5 Hyperlipidemia, unspecified; Z79.01 Long term (current) use of anticoagulants; Z79.51 Long term (current) use of inhaled steroids; Z79.899 Other long term (current) drug therapy; Z87.891 Personal history of nicotine dependence; Z95.0 Presence of cardiac pacemaker; Z95.5 Presence of coronary angioplasty implant and graft; Z85.828 Personal history of other malignant neoplasm of skin; Y79.2 Prosthetic and other implants, materials and accessory orthopedic devices associated with adverse incidents
CPT/HCPCS: 73501; 73502; 99284; 27265; 99152; 99153; J2704; J1170

== ENCOUNTER → 2020-02-20 | Outpatient (CLI) | payer MEDICARE ==
[2020-02-20 09:55] LABS: HCT 37.4 % (39.0-53.0); HGB 11.8 gm/dL (13.0-17.5); MCH 31.5 pg (25.0-35.0); MCHC 31.4 g/dL (31.0-37.0); MCV 100.3 fL (80.0-100.0); Macrocytosis Slight; Mean Platelet Volume 7.9; Platelet Count 205 k/uL (150-450); RBC 3.73 m/uL (4.30-5.90); RDW 14.5 % (11.5-15.5); WBC 7.1 k/uL (3.8-10.6)
[2020-02-20 10:03] LABS: INR 1.1 (<1.2); Partial Thromboplastin Time 27.1 sec (22.0-30.0); Prothrombin Time 10.9 sec (9.0-12.0)
[2020-02-20 11:05] LABS: Appearance,Urine Clear (Clear); Bilirubin,Urine Negative (Negative); Blood,Urine Negative (Negative); Color,Urine Yellow; Glucose,Urine (UA) Negative (Negative); Ketones,Urine Negative (Negative); Leukocyte Esterase,Urine Negative (Negative); Nitrite,Urine Negative (Negative); PH, Urine 5.5 (5.0-8.0); Protein,Urine Negative (Negative); Specific Gravity,Urine 1.018 (1.001-1.035)
[2020-02-20 16:17] LABS: African American GFR (CKD) 63.5 (60.0-200.0); Albumin 3.8 g/dL (3.80-4.90); Albumin/Globulin Ratio 2.24 (1.60-3.17); Anion Gap 7.2 mmol/L (4.00-12.00); BUN/Creat Ratio 32.5 Ratio (12.00-20.00); Calcium 8.9 mg/dL (8.7-10.3); Carbon Dioxide 23.8 mmol/L (21.6-31.8); Globulin 1.7 g/dL (1.6-3.3); Non-African American GFR(CKD) 54.8 (60.0-200.0); Potassium 4.1 mmol/L (3.5-5.5); Total Bilirubin 0.7 mg/dL (0.2-1.2); Total Protein 5.5 g/dL (6.2-8.2)
== END | disposition home or self-care (01) ==
LOC: LABWHC1 12:07
PROVIDERS: ATTEND Orthopaedic Surgery
DX: Z01.818 Encounter for other preprocedural examination (principal); S73.005A Unspecified dislocation of left hip, initial encounter; U07.1 COVID-19
CPT/HCPCS: 36415; 80053; 81003; 85027; 85610; 85730; 87635

== ENCOUNTER 2020-02-22 07:30 | Inpatient (IN) | payer MEDICARE ==
[2020-02-20 14:45] VITALS: BMI 25.1
[2020-02-24] MEDS ORDERED: ACETAMINOPHEN TAB 500 MG TAB PO ONE (05:00)
[2020-02-24] MEDS ORDERED: TRANEXAMIC ACID 1,000 MG in SODIUM CHLORIDE 0.9% 100 ML IVPB ONE ×4 (05:00)
[2020-02-24] MEDS ORDERED: MELOXICAM 7.5 MG TAB PO ONE (05:00)
[2020-02-24] MEDS ORDERED: GABAPENTIN 300 MG CAP PO ONE (05:00)
[2020-02-24] MEDS ORDERED: HYDROmorphone 0.5 MG/0.5 ML SYRINGE IVP PRN ×4 (05:58→10:24)
[2020-02-24] MEDS ORDERED: ONDANSETRON 4 MG/2 ML VIAL IVP ONE (05:58)
[2020-02-24] MEDS ORDERED: LIDOCAINE 1% (10MG/ML) FOR IV START INTRADERMA PRN (05:58)
[2020-02-24] MEDS ORDERED: ROPIVACAINE 246.25 MG, EPINEPHrine 0.5 MG, KETOROLAC 30 MG, cloNIDine HCL/PF 80 MCG, WA... MISCELLANE ONE ×5 (06:00)
[2020-02-24] MEDS: LACTATED RINGERS 1,000 ML IV SCH (06:59)
[2020-02-24] MEDS ORDERED: DEXAMETHASONE SOD PHOSPHATE 10 MG/ML 1 ML VIAL IV ONE (07:10)
[2020-02-24] MEDS ORDERED: TRANEXAMIC ACID 1,000 MG/10 ML VIAL ONE (07:26)
[2020-02-24] MEDS ORDERED: SODIUM CHLORIDE 0.9% 100 ML BAG ONE (07:26)
[2020-02-24] MEDS ORDERED: diphenhydrAMINE 50 MG/ML 1 ML VIAL ONE (07:26)
[2020-02-24] MEDS ORDERED: MIDAZOLAM 2 MG/2 ML VIAL ONE (07:26)
[2020-02-24] MEDS ORDERED: ePHEDrine SULFATE/0.9% NACL/PF 50 MG/5 ML SYRINGE IV ONE (07:26)
[2020-02-24] MEDS ORDERED: ceFAZolin 3,000 MG in SODIUM CHLORIDE 0.9% IRRIGATIO 3,000 ML IRRIGATION ONE (07:40)
[2020-02-24] MEDS ORDERED: LACTATED RINGERS 1,000 ML IV ONE (09:13)
--- NOTE | 2020-02-24 10:13 | P.OP ---
Date of Procedure: 02/24/20 Preoperative Diagnosis: Recurrent dislocation left total hip arthroplasty Postoperative Diagnosis: Recurrent dislocation left total hip arthroplasty Procedure(s) Performed: Revision left total hip arthroplasty with constrained liner Implants: Nicole cemented constrained liner 32 mm x 56 mm Nicole femoral head, 6 taper 32 mm x 3.5 mm Palacos R bone cement. 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 In December she began dislocating, and is subsequently dislocated his hip approximately 4 times since then. Because of the recurrent dislocation I discussed the surgical and nonsurgical treatment options with him and his at length. Because of the leiva damage, we have tried to delay surgery as long as possible, but because of the recurrent dislocations, he wishes to have revision surgery. Covid-19 was discussed at length with the patient and the family, they're wear of her current practices and procedures, were given the option of delayed surgery, but they elect to proceed at this time knowing the risks. Informed consent was obtained. Operative Findings: The operative findings are consistent with a recurrent dislocation of a left total hip arthroplasty Description of Procedure: Patient was seen and evaluated in the preoperative area, consent was reviewed, a nd the surgical site was marked with a skin marker. Patient was then brought to the operating room and given prophylactic antibiotics intravenously. 1 g of Tranexamic acid was also given. Preoperative IV antibiotics were administered A spinal anesthetic was administered by the anesthesia department. The patient was then placed on the operative table and placed in the lateral decubitus position with the bony prominences well-padded. The hip area was then prepped and draped in usual sterile fashion. A universal timeout was then performed, which confirmed the patient's name, surgical site, ALLERGIES, and procedure being performed. Next the incision site was located in the lateral aspect of the hip, centered at the tip of the greater trochanter.. The skin and subcutaneous tissues were sharply incised. A portion of his prior incision was utilized, with the scar being excised. Incision was carefully dissected down to the fascia. This fascia was then incised in line with the incision. Next, a Charnley retractor was then placed in the abductors were identified. The anterior one third of the abductors was released off the trochanter and one large sleeve. The anterior hip capsule was then exposed. The capsule was then opened. The proximal femur was then visualized. The hip was then taken through range of motion and found to have some mild instability anteriorly with flexion and external rotation. The hip was then gently dislocated. The femoral head was then removed from the trunnion of the femoral component. The femoral stem was then inspected, and found to be well fixed. Attention was then turned to the acetabulum. The acetabulum was exposed, and the scar tissue was excised sharply with a knife. After the acetabulum was exposed, the polyethylene component was found to be well fixed into the cement mantle.. The polyethylene component was then removed with osteotomes. The remaining cement in the acetabular component was then removed as well. The acetabular component was inspected and found to be well fixed.. After adequate debridement of scar tissue, trial liner was then placed. Trial femoral head was then placed and hip was reduced. The leg lengths were checked and found to be equal. Hip was then taken through full range of motion, was stable throughout. Next, the hip was gently dislocated, and the trials were removed. Acetabulum was then reexposed. The appropriate acetabular liner was then opened. Cement was mixed and the acetabular liner was then cemented in place. The cement was allowed to harden. The trunnion was then cleaned and dried and the femoral head was impacted on the trunnion. Hip was then reduced into the constrained liner. The locking ring was then placed impacted with locking confirmed. The he hip was then taken through range of motion and found to be stable throughout. Leg lengths were also checked, and found to be equal. The hip was then copiously irrigated with antibiotic solution with pulsatile l avage. The hip was then irrigated with Irrisept solution. The soft tissues were then injected with a ropivacaine solution, which consisted of 246.25 mg of ropivacaine, 0.5 mg of epinephrine, 30 mg of Toradol, 80 g of clonidine, and 48.45 mL of sterile water, for a total of 100 mL of fluid injected. A second dose of 1 g of Tranexamic acid was given. The abductors were then repaired with #5 Ethibond suture with drill holes to the bone. The fascia was closed with #2 strata fix suture. The subcutaneous tissue was closed with 3-0 Vicryl. The subcuticular tissue was closed with 3-0 strata fix suture. The skin was then closed with skin glue, and a sterile silver dressing was applied.. The patient was then transferred to the recovery room in stable condition. The Asst. SHREYA Soto was required due to the complexity of surgery, and the need for skilled bilingual office assistant for positioning, draping, exposure, retraction, and closure of the wound.and closure of the wound.
[2020-02-24] MEDS ORDERED: NALOXONE 0.4 MG/ML 1 ML VIAL IV PRN (10:24)
[2020-02-24] MEDS ORDERED: ONDANSETRON 4 MG/2 ML VIAL IVP PRN (10:24)
[2020-02-24] MEDS ORDERED: HYDROcodone/APAP 5-325MG 1 EACH TAB PO PRN (10:24)
--- NOTE | 2020-02-24 10:50 | XR ---
EXAMINATION TYPE: XR Hip Limited LT DATE OF EXAM: 02/24/2020 CLINICAL HISTORY: Left hip pain and osteoarthritis. Recent surgery. Recurrent dislocation. TECHNIQUE: Single AP portable view of left hip is obtained immediately postoperatively. COMPARISON: Prior left hip x-ray 10 days ago.. FINDINGS: Telida osseous structures remain demineralized. Metallic hardware from total left hip arthr oplasty revision is seen and appears satisfactory in alignment and position. Heterotopic ossification laterally again seen. There is evidence of recent surgery with subcutaneous gas noted laterally. IMPRESSION: As above.
[2020-02-24] MEDS ORDERED: amLODIPine 5 MG TAB PO SCH (14:45)
--- NOTE | 2020-02-24 15:04 | P.CONS ---
History of Present Illness - Reason for Consult Consult date: 02/24/20 - History of Present Illness Dino Batista is an 84-year-old male who had known history of left total hip arthroplasty, he had dislocation of the left hip in December, and had 4 instances of dislocation since then, each time he would fall to the floor and required EMS to help him up and bring him to emergency room, he was evaluated by Dr. Cortez as outpatient, and decision was made to proceed with revision of left total hip arthroplasty with constrained liner which was done this morning, patient was admitted to surgical floor post surgery, medical consultation was requested, patient has a known history of chronic diastolic congestive heart failure, history of atrial fibrillation maintained on a Eliquis, history of COPD, history of hypertension, history of hyperlipidemia, and history of chronic back pain. He was evaluated by cardiology and was cleared for surgery 2 weeks ago. Past Medical History Past Medical History: Atrial Fibrillation, Coronary Artery Disease (CAD), Ca ncer, Heart Failure, COPD, Dementia, Eye Disorder, Hyperlipidemia, Hypertension, Osteoarthritis (OA) Additional Past Medical History / Comment(s): Cardiomyopathy, pacemaker., back pain, neuropathy bilateral hands/legs/feet, BPH with frequent night time urination, glaucoma , skin cancer removed from scalp. History of Any Multi-Drug Resistant Organisms: None Reported Past Surgical History: Back Surgery, Heart Catheterization With Stent, Hernia Repair, Joint Replacement, Orthopedic Surgery, Pacemaker Additional Past Surgical History / Comment(s): PCI with 2 stents, pacemaker lt [email or web address] mod # [id number] serial #[id number]- [employer] [id number]-has card, total lt hip, cervical [id number] surgery, lumbar 3-5 disc repair- hardware present,aleksandra carpel tunnel, aleksandra cataracts removed/lens implants, abdominal hernia repair, colonoscopy. Past Anesthesia/Blood Transfusion Reactions: No Reported Reaction Additional Past Anesthesia/Blood Transfusion Reaction / Comm: . Date of Last Stent Placement:: 11-29-2012 Type of Cardiac Device: Permanent Pacemaker Device Placement Date:: 12-01-2012 Past Psychological History: Anxiety Smoking Status: Former smoker Past Alcohol Use History: Occasional Additional Past Alcohol Use History / Comment(s): quit smoking 1990, started smoking 1950 smoked 1ppd Past Drug Use History: None Reported - Past Family History Mother Family Medical History: Cancer, Myocardial Infarction ([place]) Additional Family Medical History / Comment(s): breast ca Father Family Medical History: No Reported History, Diabetes Mellitus Additional Family Medical History / Comment(s): at age 94 Brother(s) Family Medical History: Congestive Heart Failure (CHF) Additional Family Medical History / Comment(s): heart valve replacement Medications and Allergies Home Medications Medication Instructions Recorded Confirmed Type Brinzolamide/Brimonidine Tart 1 drop BOTH EYES BID 12/11/15 02/24/20 History [Simbrinza 1%-0.2% Eye Drops] Enalapril [Vasotec] 2.5 mg PO DAILY 12/11/15 02/24/20 History Metoprolol Tartrate 25 mg PO BID 12/11/15 02/24/20 History Simvastatin [Zocor] 20 mg PO HS 12/11/15 02/24/20 History busPIRone HCL [Buspar] 7.5 mg PO BID 11/12/18 02/24/20 History Apixaban [Eliquis] 2.5 mg PO BID 10/17/19 02/24/20 History Spironolactone 12.5 mg PO DAILY 10/17/19 02/24/20 History amLODIPine [Norvasc] 5 mg PO DAILY 30 Days #30 tab 10/19/19 02/24/20 Rx Albuterol Nebulized [Ventolin 2.5 mg INHALATION RT-QID 01/26/20 02/24/20 History Nebulized] Furosemide [Lasix] 40 mg PO DAILY 01/26/20 02/24/20 History Gabapentin [Neurontin] 100 mg PO QID 01/26/20 02/24/20 History Cholecalciferol [Vitamin D3 (25 5,000 unit PO DAILY 02/20/20 02/24/20 History Mcg = 1000 Iu)] Allergies Allergy/AdvReac Type Severity Reaction Status Date / Time No Known Allergies Allergy Verified 02/24/20 07:04 Physical Exam Vitals: Vital Signs Temp Pulse Pulse Resp BP Pulse Ox 02/24/20 13:59 56 L 20 135/64 97 02/24/20 13:22 68 117/39 02/24/20 12:51 61 18 132/54 96 02/24/20 12:42 97.7 F 64 18 129/67 93 L 02/24/20 12:20 65 126/65 93 L 02/24/20 10:50 62 18 122/56 96 02/24/20 10:35 60 16 131/62 97 02/24/20 10:21 97.7 F 62 14 146/65 94 L 02/24/20 06:53 97.9 F 64 16 149/66 97 Intake and Output 02/23/20 02/24/20 02/24/20 22:59 06:59 14:59 Intake Total 100 1536 Output Total 100 Balance 100 1436 Intake: IV 100 1151 Intake, IV Titration 60 Amount Lactated Ringers 1,000 ml 60 @ 20 mls/hr IV .Q24H ARIA Rx#:[id number] Oral 325 Output: Estimated Blood Loss 100 Other: Weight 75.7 kg 75.7 kg In general patient is alert and oriented 3 in no apparent distress HEENT head normocephalic and atraumatic Neck is supple no JVD no goiter no lymphadenopathy Chest exam reveals a few scattered rhonchi no wheezing Cardiac exam reveals regular heart sounds S1 and S2 no gallops no murmurs Abdomen is soft nontender no organomegaly with normal bowel sounds Extremity exam reveals no edema no cyanosis or clubbing, left lower extremity is slightly larger than the right in the calf area. Neurological examination reveals no gross focal deficit Assessment and Plan Plan: 1. Status post revision of left total hip arthroplasty 2. Underlying history of COPD 3. Underlying history of atrial fibrillation 4. Underlying history of diastolic congestive heart failure 5. Underlying history of hypertension, well-controlled on medications 6. Underlying history of hyperlipidemia maintained on simvastatin 7. Underlying history of anxiety disorder maintained on Buspione Patient was seen and examined post surgery, he is stable and doing well Medications except for Eloquis where restarted Will restart Eliquis if okay with orthopedic surgery Recheck lab will follow up in a.m.
[2020-02-24] MEDS: FUROSEMIDE 40 MG TAB PO SCH (15:25)
[2020-02-24] MEDS: CHOLECALCIFEROL 1,000 UNIT TAB PO SCH (15:25)
[2020-02-24] MEDS: ALBUTEROL NEBULIZED 2.5 MG/3 ML INHALATION SCH ×2 (16:10→19:12)
[2020-02-24] MEDS: GABAPENTIN 100 MG CAP PO SCH ×2 (17:12→21:23)
[2020-02-24] MEDS: ATORVASTATIN 10 MG TAB PO SCH (20:22)
[2020-02-24] MEDS: APIXABAN 2.5 MG TABLET PO SCH (20:22)
[2020-02-24] MEDS: DORZOLAMIDE HCL 2% DROPS 10 ML BTL BOTH EYES SCH (20:22)
[2020-02-24] MEDS: SENNOSIDES-DOCUSATE SODIUM 1 EACH TAB PO SCH (20:23)
[2020-02-24] MEDS: busPIRone HCl 5 MG TAB PO SCH (20:23)
[2020-02-24] MEDS: METOPROLOL TARTRATE 25 MG TAB PO SCH (20:23)
[2020-02-24] MEDS: BRIMONIDINE TARTRATE 0.2% DROPS 5 ML BTL BOTH EYES SCH (20:23)
[2020-02-24] MEDS: HYDROcodone/APAP 5-325MG 1 EACH TAB PO PRN (21:27)
[2020-02-25] MEDS: LACTATED RINGERS 1,000 ML IV SCH ×2 (02:13→21:32)
[2020-02-25] MEDS: HYDROcodone/APAP 5-325MG 1 EACH TAB PO PRN ×2 (05:42→15:21)
[2020-02-25 06:48] LABS: Basophils % (A) 0 %; Eosinophils % (A) 0 %; HCT 36.6 % (39.0-53.0); HGB 11.5 gm/dL (13.0-17.5); Lymphocytes # (A) 0.8 k/uL (1.0-4.8); Lymphocytes % (A) 6 %; MCH 31.6 pg (25.0-35.0); MCHC 31.3 g/dL (31.0-37.0); MCV 100.9 fL (80.0-100.0); Macrocytosis Slight; Mean Platelet Volume 7.7; Monocytes # (A) 0.7 k/uL (0-1.0); Monocytes % (A) 5 %; Neutrophils # (A) 11.8 k/uL (1.3-7.7); Neutrophils % (A) 87 %; Platelet Count 199 k/uL (150-450); RBC 3.63 m/uL (4.30-5.90); RDW 14.3 % (11.5-15.5); WBC 13.5 k/uL (3.8-10.6)
[2020-02-25 06:54] LABS: Albumin 3.4 g/dL (3.5-5.0); Calcium 8.9 mg/dL (8.4-10.2); Potassium 5.6 mmol/L (3.5-5.1); Total Bilirubin 0.4 mg/dL (0.2-1.3); Total Protein 5.9 g/dL (6.3-8.2)
[2020-02-25] MEDS: ALBUTEROL NEBULIZED 2.5 MG/3 ML INHALATION SCH ×4 (08:05→20:36)
[2020-02-25] MEDS: METOPROLOL TARTRATE 25 MG TAB PO SCH ×2 (09:15→20:30)
[2020-02-25] MEDS: busPIRone HCl 5 MG TAB PO SCH ×2 (09:15→20:31)
[2020-02-25] MEDS: GABAPENTIN 100 MG CAP PO SCH ×4 (09:16→21:30)
[2020-02-25] MEDS: CHOLECALCIFEROL 1,000 UNIT TAB PO SCH (09:16)
[2020-02-25] MEDS: APIXABAN 2.5 MG TABLET PO SCH ×2 (09:16→20:31)
[2020-02-25] MEDS: SPIRONOLACTONE 25 MG TAB PO SCH (09:17)
[2020-02-25] MEDS: LISINOPRIL 5 MG TAB PO SCH (09:17)
[2020-02-25] MEDS: FUROSEMIDE 40 MG TAB PO SCH (09:18)
[2020-02-25] MEDS: BRIMONIDINE TARTRATE 0.2% DROPS 5 ML BTL BOTH EYES SCH ×2 (09:19→20:30)
[2020-02-25] MEDS: DORZOLAMIDE HCL 2% DROPS 10 ML BTL BOTH EYES SCH ×2 (09:20→20:30)
[2020-02-25 12:16] VITALS: RESP 16
[2020-02-25] MEDS ORDERED: SODIUM POLYSTYRENE SULFONATE 15 GM/60 ML BOTTLE PO ONE ×2 (12:49→18:11)
--- NOTE | 2020-02-25 12:51 | P.PN ---
Subjective Progress Note Date: 02/25/20 Dino Batista is an 84-year-old male who had known history of left total hip arthroplasty, he had dislocation of the left hip in December, and had 4 instances of dislocation since then, each time he would fall to the floor and required EMS to help him up and bring him to emergency room, he was evaluated by Dr. Cortez as outpatient, and decision was made to proceed with revision of left total hip arthroplasty with constrained liner which was done this morning, patient was admitted to surgical floor post surgery, medical consultation was requested, patient has a known history of chronic diastolic congestive heart failure, history of atrial fibrillation maintained on a Eliquis, history of COPD, history of hypertension, history of hyperlipidemia, and history of chronic back pain. He was evaluated by cardiology and was cleared for surgery 2 weeks ago. On 02/25/2020 patient was seen and examined on the medical floor he is alert and oriented 3 in no apparent distress he has minimal pain at the surgical site otherwise he denies any complaints there is no fever or chills no headache or dizziness no chest pain no shortness of breath no cough no nausea or vomiting no abdominal pain no diarrhea and no urinary symptoms potassium is elevated at 5.6 a dose of Kayexalate was ordered Objective - Vital Signs Vital signs: Vital Signs Temp 97.6 F 02/25/20 11:42 Pulse 60 02/25/20 12:35 Resp 16 02/25/20 11:42 BP 120/63 02/25/20 11:42 Pulse Ox 96 02/25/20 06:37 Intake & Output 02/24/20 02/25/20 02/25/20 18:59 06:59 18:59 Intake Total 1832 630 Output Total 100 Balance 1732 630 Weight 75.7 kg Intake: IV 1151 Intake, IV Titration 60 50 Amount Lactated Ringers 1,000 ml 60 @ 20 mls/hr IV .Q24H ARIA Rx#:[id number] ceFAZolin 2 gm In Sodium 50 Chloride 0.9% 50 ml @ 100 mls/hr IVPB Q8HR ARIA Rx# :[id number] Oral 621 580 Output: Estimated Blood Loss 100 - Exam In general patient is alert and oriented 3 in no apparent distress HEENT head normocephalic and atraumatic Neck is supple no JVD no goiter no lymphadenopathy Chest exam reveals a few scattered rhonchi no wheezing Cardiac exam reveals regular heart sounds S1 and S2 no gallops no murmurs Abdomen is soft nontender no organomegaly with normal bowel sounds Extremity exam reveals no edema no cyanosis or clubbing, left lower extremity is slightly larger than the right in the calf area. Neurological examination reveals no gross focal deficit - Labs CBC & Chem 7: 02/25/20 05:39 02/25/20 05:39 Labs: Abnormal Lab Results - Last 24 Hours (Table) 02/25/20 02/25/20 Range/Units 05:39 05:39 WBC 13.5 H (3.8-10.6) k/uL RBC 3.63 L (4.30-5.90) m/uL Hgb 11.5 L (13.0-17.5) gm/dL Hct 36.6 L (39.0-53.0) % MCV 100.9 H (80.0-100.0) fL Neutrophils # 11.8 H (1.3-7.7) k/uL Lymphocytes # 0.8 L (1.0-4.8) k/uL Sodium 131 L (137-145) mmol/L Potassium 5.6 H (3.5-5.1) mmol/L BUN 38 H (9-20) mg/dL Creatinine 1.40 H (0.66-1.25) mg/dL Total Protein 5.9 L (6.3-8.2) g/dL Albumin 3.4 L (3.5-5.0) g/dL Assessment and Plan Plan: 1. Status post revision of left total hip arthroplasty 2. Underlying history of COPD 3. Underlying history of atrial fibrillation 4. Underlying history of diastolic congestive heart failure 5. Underlying history of hypertension, well-controlled on medications 6. Underlying history of hyperlipidemia maintained on simvastatin 7. Underlying history of anxiety disorder maintained on Buspione 8. Hyperkalemia Kayexalate 15 g by mouth one dose was ordered will recheck labs in a.m. Patient was seen and examined post surgery, he is stable and doing well Medications except for Eloquis where restarted Will restart Eliquis if okay with orthopedic surgery Recheck lab will follow up in a.m.
--- NOTE | 2020-02-25 17:20 | P.PN ---
Subjective Progress Note Date: 02/25/20 This patient is an 84-year old male that is status-post revision left total hip arthroplasty with constrained liner on 02/24/[address] Bennett. Today is post-operative day #1. Patient is examined bedside this morning. He states his pain in well-controlled in the left hip. He has been up ambulating multiple times overnight and this morning, with the assistance of a walker. Patient has not yet worked with physical therapy. He states he is urinating without issue. He has not yet had a bowel movement postoperatively. He is tolerating his diet well. He denies abdominal pain. He denies chest pain, shortness breath, nausea, vomiting, fevers, chills. He denies numbness or tingling of the left lower extremity. Overall, the patient feels were very well this morning. He states he would like to return home on discharge. Vital signs stable. Objective - Vital Signs Vital signs: Vital Signs Temp 97.6 F 02/25/20 11:42 Pulse 60 02/25/20 15:39 Resp 16 02/25/20 11:42 BP 120/63 02/25/20 11:42 Pulse Ox 96 02/25/20 06:37 Intake & Output 02/24/20 02/25/20 02/25/20 18:59 06:59 18:59 Intake Total 1832 630 Output Total 100 Balance 1732 630 Weight 75.7 kg Intake: IV 1151 Intake, IV Titration 60 50 Amount Lactated Ringers 1,000 ml 60 @ 20 mls/hr IV .Q24H ARIA Rx#:[id number] ceFAZolin 2 gm In Sodium 50 Chloride 0.9% 50 ml @ 100 mls/hr IVPB Q8HR ARIA Rx# :[id number] Oral 621 580 Output: Estimated Blood Loss 100 Other: # Voids 2 - Exam On examination, the patient is lying in bed in no apparent distress. He is alert and oriented 3. On inspection the left hip, there is a clean, dry, intact surgical dressing in place. There is no drainage or bleeding through the dressing. There is mild ecchymosis of the hip. There is no areas of fluctuance surrounding the incision. There is no erythema surrounding the incision. The left lower extremity is warm and well-perfused with brisk capillary refill distally. The patient has good strength and range of motion of the left ankle. Motor and sensory function. Intact of the left lower extremity. Left calf is soft and nontender to palpation. - Labs CBC & Chem 7: 02/25/20 05:39 02/25/20 05:39 Labs: Abnormal Lab Results - Last 24 Hours (Table) 02/25/20 02/25/20 Range/Units 05:39 05:39 WBC 13.5 H (3.8-10.6) k/uL RBC 3.63 L (4.30-5.90) m/uL Hgb 11.5 L (13.0-17.5) gm/dL Hct 36.6 L (39.0-53.0) % MCV 100.9 H (80.0-100.0) fL Neutrophils # 11.8 H (1.3-7.7) k/uL Lymphocytes # 0.8 L (1.0-4.8) k/uL Sodium 131 L (137-145) mmol/L Potassium 5.6 H (3.5-5.1) mmol/L BUN 38 H (9-20) mg/dL Creatinine 1.40 H (0.66-1.25) mg/dL Total Protein 5.9 L (6.3-8.2) g/dL Albumin 3.4 L (3.5-5.0) g/dL Assessment and Plan Assessment: Status-post revision left total hip arthroplasty with constrained liner on 02/24/20. Post-operative day #1. Plan: - Patient may weight-bear as tolerated on the left lower extremity. Up with assistance, up with a walker. - Physical therapy for gait and balance training. - Keep Optifoam dressing on left hip in place for 7-10 days. - 2 doses of postoperative antibiotics complete. - Continue pain management with [place], and use of IV Dilaudid as needed. - We will defer post-operative DVT prophylaxis to the internal medicine team. The patient takes Eliquis at home for atrial fibrillation. - Additional medical management per internal medicine team. - We will plan for discharge home with home health nurse and physical therapy tomorrow, pending medical clearance.
[2020-02-25] MEDS: SENNOSIDES-DOCUSATE SODIUM 1 EACH TAB PO SCH (20:30)
[2020-02-25] MEDS: ATORVASTATIN 10 MG TAB PO SCH (20:31)
[2020-02-26] MEDS: HYDROcodone/APAP 5-325MG 1 EACH TAB PO PRN ×2 (02:02→08:30)
[2020-02-26 06:24] LABS: Basophils % (A) 1 %; Eosinophils # (A) 0.1 k/uL (0-0.7); Eosinophils % (A) 2 %; HCT 36.1 % (39.0-53.0); HGB 11.3 gm/dL (13.0-17.5); Lymphocytes # (A) 1.1 k/uL (1.0-4.8); Lymphocytes % (A) 16 %; MCH 31.5 pg (25.0-35.0); MCHC 31.3 g/dL (31.0-37.0); MCV 100.5 fL (80.0-100.0); Macrocytosis Slight; Mean Platelet Volume 8.1; Monocytes # (A) 0.5 k/uL (0-1.0); Monocytes % (A) 8 %; Neutrophils % (A) 72 %; Platelet Count 182 k/uL (150-450); RBC 3.59 m/uL (4.30-5.90); RDW 14.8 % (11.5-15.5)
[2020-02-26 06:31] LABS: Albumin 3.2 g/dL (3.5-5.0); Calcium 8.5 mg/dL (8.4-10.2); Potassium 4.9 mmol/L (3.5-5.1); Total Bilirubin 0.5 mg/dL (0.2-1.3); Total Protein 5.6 g/dL (6.3-8.2)
[2020-02-26] MEDS: CHOLECALCIFEROL 1,000 UNIT TAB PO SCH (08:26)
[2020-02-26] MEDS: busPIRone HCl 5 MG TAB PO SCH (08:27)
[2020-02-26] MEDS: METOPROLOL TARTRATE 25 MG TAB PO SCH (08:28)
[2020-02-26] MEDS: LISINOPRIL 5 MG TAB PO SCH (08:28)
[2020-02-26] MEDS: SPIRONOLACTONE 25 MG TAB PO SCH (08:29)
[2020-02-26] MEDS: APIXABAN 2.5 MG TABLET PO SCH (08:29)
[2020-02-26] MEDS: FUROSEMIDE 40 MG TAB PO SCH (08:29)
[2020-02-26] MEDS: GABAPENTIN 100 MG CAP PO SCH ×2 (08:29→12:58)
[2020-02-26] MEDS: BRIMONIDINE TARTRATE 0.2% DROPS 5 ML BTL BOTH EYES SCH (08:31)
[2020-02-26] MEDS: DORZOLAMIDE HCL 2% DROPS 10 ML BTL BOTH EYES SCH (08:31)
[2020-02-26] MEDS: ALBUTEROL NEBULIZED 2.5 MG/3 ML INHALATION SCH (08:36)
--- NOTE | 2020-02-26 10:57 | P.DS ---
Providers Date of admission: 02/24/20 06:31 Expected date of discharge: 02/26/20 Attending physician: Marcelo Bennett Consults: 02/24/20 10:30 Consult Physician Routine Consulting Provider: Jean Gutierrez Consult Reason/Comments: Medical management, DVT prophylaxis Do you want consulting provider notified?: Yes Primary care physician: [facility] Course: This is a 86-year-old male who was last seen in our office with complaints in regard to his left hip. 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 Bennett. In December, he began dislocating and subsequently dislocated his left hip about 4 times since then. After discussion and consideration the patient elects to proceed revision left total hip arthroplasty with constrained liner. He is seen preoperatively by his family physician and cardiology, and was cleared for surgery. The patient is admitted to [facility] for a revision left total hip arthroplasty on 02/24/20. The procedure is performed without complication or sequelae. The patient is doing well postoperatively. Vital signs and postoperative labs are stable. The patient is examined bedside this morning. The patient states he feels very well. He states the pain in his left hip is well-controlled. He states he has been up ambulating with a walker with minimal issues. He has been working with physical therapy, and physical therapy has cleared the patient to be discharged to home with home physical therapy. The patient is urinating without issue. He has not had a bowel movement yet postoperatively, although the patient denies abdominal pain. He is tolerating his diet well. He denies numbness or tingling of the left lower extremity. He denies chest pain, shortness breath, nausea, vomiting, fevers, chills. Overall the patient feels very well and has no complaints this morning. On examination, the patient is sitting up in the bedside chair in no apparent distress. He is alert and oriented 3. On inspection of the left hip, there is a clean, dry, intact surgical dressing in place. There is no bleeding or drainage through the dressing. There is minimal ecchymosis of the hip. There are no areas of fluctuance. The patient has good strength and range of motion of the left ankle. Left lower extremity is warm and well-perfused with brisk capillary refill distally. Dorsalis pedis pulse not readily palpable on exam, although was confirmed with bedside Doppler ultrasound. Motor and sensory function appear to be intact of the left lower extremity. The patient states he has decreased sensation of the left foot secondary to neuropathy. No pain on palpation of the left calf. The patient is discharged to home today with home health services in good condition, pending medical clearance. Please see discharge orders. Please refer to the [facility] for accurate list of medications. Patient Condition at Discharge: Fair Plan - Discharge Summary Discharge Rx Participant: Yes New Discharge Prescriptions: New Hydrocodone/Acetaminophen [Archer 5-325] 1 tab PO Q6H PRN #28 tab PRN Reason: Pain No Action Metoprolol Tartrate 25 mg PO BID Brinzolamide/Brimonidine Tart [Simbrinza 1%-0.2% Eye Drops] 1 drop BOTH EYES BID Simvastatin [Zocor] 20 mg PO HS Enalapril [Vasotec] 2.5 mg PO DAILY busPIRone HCL [Buspar] 7.5 mg PO BID Spironolactone 12.5 mg PO DAILY Apixaban [Eliquis] 2.5 mg PO BID amLODIPine [Norvasc] 5 mg PO DAILY 30 Days #30 tab Gabapentin [Neurontin] 100 mg PO QID Albuterol Nebulized [Ventolin Nebulized] 2.5 mg INHALATION RT-QID Furosemide [Lasix] 40 mg PO DAILY Cholecalciferol [Vitamin D3 (25 Mcg = 1000 Iu)] 5,000 unit PO DAILY Discharge Medication List Brinzolamide/Brimonidine Tart [Simbrinza 1%-0.2% Eye Drops] 1 drop BOTH EYES BID 12/11/15 [History] Enalapril [Vasotec] 2.5 mg PO DAILY 12/11/15 [History] Metoprolol Tartrate 25 mg PO BID 12/11/15 [History] Simvastatin [Zocor] 20 mg PO HS 12/11/15 [History] busPIRone HCL [Buspar] 7.5 mg PO BID 11/12/18 [History] Apixaban [Eliquis] 2.5 mg PO BID 10/17/19 [History] Spironolactone 12.5 mg PO DAILY 10/17/19 [History] amLODIPine [Norvasc] 5 mg PO DAILY 30 Days #30 tab 10/19/19 [Rx] Albuterol Nebulized [Ventolin Nebulized] 2.5 mg INHALATION RT-QID 01/26/20 [History] Furosemide [Lasix] 40 mg PO DAILY 01/26/20 [History] Gabapentin [Neurontin] 100 mg PO QID 01/26/20 [History] Cholecalciferol [Vitamin D3 (25 Mcg = 1000 Iu)] 5,000 unit PO DAILY 02/20/20 [History] Hydrocodone/Acetaminophen [Archer 5-325] 1 tab PO Q6H PRN #28 tab 02/25/20 [Rx] Follow up Appointment(s)/Referral(s): [facility], [NON-STAFF] - Marcelo Bennett DO [Doctor of Osteopathic Medicine] - 2 Weeks Activity/Diet/Wound Care/Special Instructions: -Weight-bearing as tolerated on your operative leg with a walker. -Continue home physical therapy for gait and balance training. -Leave Optifoam dressing in place for 7-10 days. -Take pain medications as prescribed. We will defer DVT prophylaxis to the internal medicine team, patient takes Eliquis at home for atrial fibrillation. -Follow-up appointment with Dr. Bennett in the office in 2 weeks. -Call the office with any questions or concerns, Discharge Disposition: HOME WITH HOME HEALTH SERVICES
[2020-02-26 12:06] VITALS: BP 147/67; PULSE 71; TEMP 97.5
--- NOTE | 2020-02-26 12:22 | P.PN ---
Subjective Progress Note Date: 02/26/20 Dino Batista is an 84-year-old male who had known history of left total hip arthroplasty, he had dislocation of the left hip in December, and had 4 instances of dislocation since then, each time he would fall to the floor and required EMS to help him up and bring him to emergency room, he was evaluated by Dr. Cortez as outpatient, and decision was made to proceed with revision of left total hip arthroplasty with constrained liner which was done this morning, patient was admitted to surgical floor post surgery, medical consultation was requested, patient has a known history of chronic diastolic congestive heart failure, history of atrial fibrillation maintained on a Eliquis, history of COPD, history of hypertension, history of hyperlipidemia, and history of chronic back pain. He was evaluated by cardiology and was cleared for surgery 2 weeks ago. On 02/25/2020 patient was seen and examined on the medical floor he is alert and oriented 3 in no apparent distress he has minimal pain at the surgical site otherwise he denies any complaints there is no fever or chills no headache or dizziness no chest pain no shortness of breath no cough no nausea or vomiting no abdominal pain no diarrhea and no urinary symptoms potassium is elevated at 5.6 a dose of Kayexalate was ordered On 02/26/2020 patient was seen and examined on the medical floor he is alert and oriented 3 in no distress he is able to stand up and ambulate with the help of a walker, he denies any symptoms at this time there is no fever or chills no headache or dizziness no chest pain no shortness of breath no cough no nausea or vomiting no abdominal pain no diarrhea no burning was urination no frequency or urgency and no hematuria he was evaluated by orthopedic surgery and was cleared for discharge, his potassium was elevated yesterday at 5.6 and is down today to 4.9 after 2 doses of Kayexalate, patient was instructed about low potassium diet. He will be seen in our office within 1 week will check potassium level ag ain in that. Objective - Vital Signs Vital signs: Vital Signs Temp 97.5 F L 02/26/20 11:35 Pulse 71 02/26/20 11:35 Resp 16 02/26/20 11:35 BP 147/67 02/26/20 11:35 Pulse Ox 91 L 02/26/20 11:35 Intake & Output 05/02/26/20 02/26/20 18:59 06:59 18:59 Other: # Voids 1 - Exam In general patient is alert and oriented 3 in no apparent distress HEENT head normocephalic and atraumatic Neck is supple no JVD no goiter no lymphadenopathy Chest exam reveals a few scattered rhonchi no wheezing Cardiac exam reveals regular heart sounds S1 and S2 no gallops no murmurs Abdomen is soft nontender no organomegaly with normal bowel sounds Extremity exam reveals no edema no cyanosis or clubbing, left lower extremity is slightly larger than the right in the calf area. Neurological examination reveals no gross focal deficit - Labs CBC & Chem 7: 02/26/20 05:46 02/26/20 05:46 Labs: Abnormal Lab Results - Last 24 Hours (Table) 02/26/20 02/26/20 Range/Units 05:46 05:46 RBC 3.59 L (4.30-5.90) m/uL Hgb 11.3 L (13.0-17.5) gm/dL Hct 36.1 L (39.0-53.0) % MCV 100.5 H (80.0-100.0) fL Sodium 132 L (137-145) mmol/L BUN 41 H (9-20) mg/dL Creatinine 1.48 H (0.66-1.25) mg/dL Total Protein 5.6 L (6.3-8.2) g/dL Albumin 3.2 L (3.5-5.0) g/dL Assessment and Plan Plan: 1. Status post revision of left total hip arthroplasty 2. Underlying history of COPD 3. Underlying history of atrial fibrillation 4. Underlying history of diastolic congestive heart failure 5. Underlying history of hypertension, well-controlled on medications 6. Underlying history of hyperlipidemia maintained on simvastatin 7. Underlying history of anxiety disorder maintained on Buspione 8. Hyperkalemia Kayexalate 15 g by mouth one dose was ordered will recheck labs in a.m. Patient was seen and examined post surgery, he is stable and doing well He was cleared for discharge by orthopedic surgery Potassium is down to 4.9 Patient is cleared for discharge from medical standpoint, continue same medications as prior to admission Low potassium diet explained to patient Follow-up in our office within 1 week
== END 2020-02-26 14:30 | disposition home health service (06) | DRG 467 ==
LOC: 2ORMAIN 02-24 06:31 → 5NMEDONC 02-24 10:45
PROVIDERS: ADMIT Internal Medicine; ATTEND Orthopaedic Surgery
PROC: 0SRB029 Replacement of Left Hip Joint with Metal on Polyethylene Synthetic Substitute, Cemented, Open Approach (ICD-10-PCS; principal; 2020-02-24 07:30)
PROC: 0SPB0JZ Removal of Synthetic Substitute from Left Hip Joint, Open Approach (ICD-10-PCS; principal; 2020-02-24 07:30)
DX: T84.021A Dislocation of internal left hip prosthesis, initial encounter (principal); I42.9 Cardiomyopathy, unspecified; I50.32 Chronic diastolic (congestive) heart failure; Y79.2 Prosthetic and other implants, materials and accessory orthopedic devices associated with adverse incidents; N40.0 Benign prostatic hyperplasia without lower urinary tract symptoms; E78.5 Hyperlipidemia, unspecified; F03.90 Unspecified dementia, unspecified severity, without behavioral disturbance, psychotic disturbance, mood disturbance, and anxiety; G62.9 Polyneuropathy, unspecified; I11.0 Hypertensive heart disease with heart failure; I25.10 Atherosclerotic heart disease of native coronary artery without angina pectoris; I48.91 Unspecified atrial fibrillation; Z96.1 Presence of intraocular lens; J44.9 Chronic obstructive pulmonary disease, unspecified; F41.9 Anxiety disorder, unspecified; M19.90 Unspecified osteoarthritis, unspecified site; Z79.01 Long term (current) use of anticoagulants; Z79.899 Other long term (current) drug therapy; Z80.3 Family history of malignant neoplasm of breast; Z82.49 Family history of ischemic heart disease and other diseases of the circulatory system; Z85.828 Personal history of other malignant neoplasm of skin; Z87.891 Personal history of nicotine dependence; Z98.42 Cataract extraction status, left eye; Z98.41 Cataract extraction status, right eye; Z95.5 Presence of coronary angioplasty implant and graft; Z98.890 Other specified postprocedural states
CPT/HCPCS: 36415; 73501; 80053; 85025; 86850; 86891; 86900; 86901; 94640

== ENCOUNTER 2020-09-24 05:22 | Inpatient (IN) | payer MEDICARE ==
[2020-09-24] MEDS ORDERED: SODIUM CHLORIDE 0.9% 1,000 ML IV STA (05:27)
[2020-09-24 05:28] VITALS: TEMP 97.5
[2020-09-24] MEDS ORDERED: PROPOFOL 10 MG/ML 20 ML VIAL IV ONE (05:28)
--- NOTE | 2020-09-24 05:28 | ED ---
Extremity Problem HPI - General Chief complaint: Extremity Problem,Nontraumatic Stated complaint: Left Hip Pain Time Seen by Provider: 09/24/20 05:25 Source: patient, EMS Mode of arrival: EMS Limitations: physical limitation - Related Data Home Medications Medication Instructions Recorded Confirmed Brinzolamide/Brimonidine Tart 1 drop BOTH EYES BID 12/11/15 02/24/20 [Simbrinza 1%-0.2% Eye Drops] Enalapril [Vasotec] 2.5 mg PO DAILY 12/11/15 02/24/20 Metoprolol Tartrate 25 mg PO BID 12/11/15 02/24/20 Simvastatin [Zocor] 20 mg PO HS 12/11/15 02/24/20 busPIRone HCL [Buspar] 7.5 mg PO BID 11/12/18 02/24/20 Apixaban [Eliquis] 2.5 mg PO BID 10/17/19 02/24/20 Spironolactone 12.5 mg PO DAILY 10/17/19 02/24/20 Albuterol Nebulized [Ventolin 2.5 mg INHALATION RT-QID 01/26/20 02/24/20 Nebulized] Furosemide [Lasix] 40 mg PO DAILY 01/26/20 02/24/20 Gabapentin [Neurontin] 100 mg PO QID 01/26/20 02/24/20 Cholecalciferol [Vitamin D3 (25 5,000 unit PO DAILY 02/20/20 02/24/20 Mcg = 1000 Iu)] Previous Rx's Medication Instructions Recorded amLODIPine [Norvasc] 5 mg PO DAILY 30 Days #30 tab 10/19/19 Hydrocodone/Acetaminophen [Stanwood 1 tab PO Q6H PRN #28 tab 02/25/20 5-325] Allergies Allergy/AdvReac Type Severity Reaction Status Date / Time No Known Allergies Allergy Verified 09/24/20 05:28 Review of Systems ROS Statement: Those systems with pertinent positive or pertinent negative responses have been documented in the HPI. ROS Other: All systems not noted in ROS Statement are negative. Past Medical History Past Medical History: Atrial Fibrillation, Coronary Artery Disease (CAD), Cancer, Heart Failure, COPD, Dementia, Eye Disorder, Hyperlipidemia, Hypertension, Osteoarthritis (OA) Additional Past Medical History / Comment(s): Cardiomyopathy, pacemaker., back pain, neuropathy bilateral hands/legs/feet, BPH with frequent night time urination, glaucoma , skin cancer removed from scalp. History of Any Multi-Drug Resistant Organisms: None Reported Past Surgical History: Back Surgery, Heart Catheterization With Stent, Hernia Repair, Joint Replacement, Orthopedic Surgery, Pacemaker Additional Past Surgical History / Comment(s): PCI with 2 stents, pacemaker lt chest-[employer] mod # [id number] serial #[id number]- [employer] 4137-has card, total lt hip, cervical [id number] surgery, lumbar 3-5 disc repair- hardware present,aleksandra carpel tunnel, aleksandra cataracts removed/lens implants, abdominal hernia repair, colonoscopy. Past Anesthesia/Blood Transfusion Reactions: No Reported Reaction Additional Past Anesthesia/Blood Transfusion Reaction / Comment(s): . Date of Last Stent Placement:: 11-29-2012 Type of Cardiac Device: Permanent Pacemaker Device Placement Date:: 12-01-2012 Past Psychological History: Anxiety Smoking Status: Former smoker Past Alcohol Use History: Occasional Past Drug Use History: None Reported - Past Family History Mother Family Medical History: Cancer, Myocardial Infarction ([place]) Additional Family Medical History / Comment(s): breast ca Father Family Medical History: No Reported History, Diabetes Mellitus Additional Family Medical History / Comment(s): at age 94 Brother(s) Family Medical History: Congestive Heart Failure (CHF) Additional Family Medical History / Comment(s): heart valve replacement General Exam Limitations: physical limitation Course Vital Signs 09/24/20 09/24/20 09/24/20 05:24 06:00 06:32 Temperature 97.5 F L Pulse Rate 60 60 30 L Respiratory 20 16 18 Rate Blood Pressure 149/105 137/54 156/76 O2 Sat by Pulse 99 98 98 Oximetry 09/24/20 09/24/20 09/24/20 06:35 06:40 06:45 Temperature Pulse Rate 60 59 L 60 Respiratory 18 14 14 Rate Blood Pressure 107/52 116/52 86/43 O2 Sat by Pulse 92 L 98 99 Oximetry 09/24/20 09/24/20 06:50 06:55 Temperature Pulse Rate 60 60 Respiratory 14 16 Rate Blood Pressure 96/63 112/66 O2 Sat by Pulse 99 98 Oximetry Medical Decision Making - Lab Data Result diagrams: 09/24/20 05:37 09/24/20 05:37 Lab Results 09/24/20 09/24/20 Range/Units 05:37 05:37 WBC 9.5 (3.8-10.6) k/uL RBC 4.03 L (4.30-5.90) m/uL Hgb 13.7 (13.0-17.5) gm/dL Hct 39.6 (39.0-53.0) % MCV 98.4 (80.0-100.0) fL MCH 33.9 (25.0-35.0) pg MCHC 34.5 (31.0-37.0) g/dL RDW 14.2 (11.5-15.5) % Plt Count 261 (150-450) k/uL MPV 6.8 Neutrophils % 70 % Lymphocytes % 16 % Monocytes % 7 % Eosinophils % 2 % Basophils % 1 % Neutrophils # 6.6 (1.3-7.7) k/uL Lymphocytes # 1.5 (1.0-4.8) k/uL Monocytes # 0.7 (0-1.0) k/uL Eosinophils # 0.2 (0-0.7) k/uL Basophils # 0.1 (0-0.2) k/uL Sodium 130 L (137-145) mmol/L Potassium 4.7 (3.5-5.1) mmol/L Chloride 100 (98-107) mmol/L Carbon Dioxide 24 (22-30) mmol/L Anion Gap 6 mmol/L BUN 29 H (9-20) mg/dL Creatinine 1.23 (0.66-1.25) mg/dL Est GFR (CKD-EPI)AfAm 61 (>60 ml/min/1.73 sqM) Est GFR (CKD-EPI)NonAf 53 (>60 ml/min/1.73 sqM) Glucose 117 H (74-99) mg/dL Calcium 9.0 (8.4-10.2) mg/dL Phosphorus 3.8 (2.5-4.5) mg/dL Magnesium 2.0 (1.6-2.3) mg/dL Total Bilirubin 0.8 (0.2-1.3) mg/dL AST 40 (17-59) U/L ALT 25 (4-49) U/L Alkaline Phosphatase 84 (38-126) U/L Total Protein 6.5 (6.3-8.2) g/dL Albumin 3.9 (3.5-5.0) g/dL Disposition Clinical Impression: Status post revision of total hip, Hip dislocation, left Disposition: ADMITTED IP TO THIS HOSP Condition: Good Is patient prescribed a controlled substance at d/c from ED?: No Referrals: None,Stated [REFERRING] - 1-2 days
[2020-09-24 05:45] LABS: Basophils # (A) 0.1 k/uL (0-0.2); Basophils % (A) 1 %; Eosinophils # (A) 0.2 k/uL (0-0.7); Eosinophils % (A) 2 %; HCT 39.6 % (39.0-53.0); HGB 13.7 gm/dL (13.0-17.5); Lymphocytes # (A) 1.5 k/uL (1.0-4.8); Lymphocytes % (A) 16 %; MCH 33.9 pg (25.0-35.0); MCHC 34.5 g/dL (31.0-37.0); MCV 98.4 fL (80.0-100.0); Mean Platelet Volume 6.8; Monocytes # (A) 0.7 k/uL (0-1.0); Monocytes % (A) 7 %; Neutrophils # (A) 6.6 k/uL (1.3-7.7); Neutrophils % (A) 70 %; Platelet Count 261 k/uL (150-450); RBC 4.03 m/uL (4.30-5.90); RDW 14.2 % (11.5-15.5); WBC 9.5 k/uL (3.8-10.6)
[2020-09-24 05:55] LABS: Albumin 3.9 g/dL (3.5-5.0); Phosphorus 3.8 mg/dL (2.5-4.5); Potassium 4.7 mmol/L (3.5-5.1); Total Bilirubin 0.8 mg/dL (0.2-1.3); Total Protein 6.5 g/dL (6.3-8.2)
--- NOTE | 2020-09-24 06:08 | XR ---
EXAM: XR Left Hip With Pelvis When Performed, 2 or 3 Views CLINICAL HISTORY: ITS.REASON XR Reason: pain TECHNIQUE: Two or three views of the left hip with pelvis when performed. COMPARISON: 02/24/20 FINDINGS: Bones/joints: Single frontal view of the left hip demonstrate prior hip arthroplasty. The femoral component of the prosthesis appears superior lateral to the acetabular component. Heterotopic bone formation about the outer left hip. Diffuse demineralization of the bones limit evaluation. No acute fracture. No dislocation. Soft tissues: Unremarkable. IMPRESSION: 1. Suspect dislocation of the left hip prosthesis. 2. Osteopenia. 3. No definite fracture on this single frontal view
[2020-09-24] MEDS ORDERED: SODIUM CHLORIDE 0.9% 1,000 ML IV ONE (07:03)
[2020-09-24] MEDS ORDERED: MORPHINE SULFATE 4 MG/ML SYRINGE IVP PRN (07:03)
[2020-09-24] MEDS ORDERED: MORPHINE SULFATE 4 MG/ML SYRINGE IVP STA (07:03)
--- NOTE | 2020-09-24 07:07 | XR ---
EXAM: XR Left Hip With Pelvis When Performed, 2 or 3 Views CLINICAL HISTORY: ITS.REASON XR Reason: post closed reduction TECHNIQUE: Two or three views of the left hip with pelvis when performed. COMPARISON: Film obtained earlier the same day. 02/24/20 FINDINGS: Bones/joints: Diffuse demineralization of the bones. Hypertrophic bony changes about the outer left hip. Left hip prosthesis appear improved and located on this single frontal view. Compared to the study from 02/24/20, the femoral component appears slightly more lateral in position with respect to the acetabular component although the alignment appears grossly normal. This may reflect interval surgery and change in prosthesis. Recommend clinical correlation for adequate positioning No acute fracture. Soft tissues: Unremarkable. IMPRESSION: 1. Improved positioning of the left hip prosthesis. 2. See above discussion
[2020-09-24 07:16] VITALS: RESP 18
--- NOTE | 2020-09-24 11:10 | P.HPOR ---
History of Present Illness H&P Date: 09/24/20 This is an 85-year-old male who is admitted for dislocation of his left total hip arthroplasty. Patient is seen and evaluated at bedside today in the emergency room. Patient underwent revision left total hip arthroplasty with constrained liner on February 24, [address] Marcelo Bennett. Patient states that early this morning he was using the bathroom and when he went to get off the toilet he heard a pop in the left hip. Patient states that this caused him to fall and he was unable to get back up. Patient states that he managed to crawl down the hallway to wake up his . Patient states that he was then transferred to the emergency room via EMS. X-rays taken in the emergency room revealed dislocation of the left total hip arthroplasty. Closed reduction was attempted in the emergency room and post reduction films suggest persistent dislocation. Patient's past medical history is significant for atrial fibrillation, coronary artery disease, cardiomyopathy, history of heart failure, COPD, dementia, hyperlipidemia, hypertension and BPH. Patient has a pacemaker and is on Eliquis. Patient denies any fever/chills, cough, shortness of breath, numbness, weakness or tingling. Review of Systems See HPI. Past Medical History Past Medical History: Atrial Fibrillation, Coronary Artery Disease (CAD), Can cer, Heart Failure, COPD, Dementia, Eye Disorder, Hyperlipidemia, Hypertension, Osteoarthritis (OA) Additional Past Medical History / Comment(s): Cardiomyopathy, pacemaker., back pain, neuropathy bilateral hands/legs/feet, BPH with frequent night time urination, glaucoma , skin cancer removed from scalp. History of Any Multi-Drug Resistant Organisms: None Reported Past Surgical History: Back Surgery, Heart Catheterization With Stent, Hernia Repair, Joint Replacement, Orthopedic Surgery, Pacemaker Additional Past Surgical History / Comment(s): PCI with 2 stents, pacemaker lt chest-[employer] mod # [id number] serial #[id number]- [employer] 4137-has card, total lt hip, cervical [id number]-e0 surgery, lumbar 3-5 disc repair- hardware present,aleksandra carpel tunnel, aleksandra cataracts removed/lens implants, abdominal hernia repair, colonoscopy. Past Anesthesia/Blood Transfusion Reactions: No Reported Reaction Additional Past Anesthesia/Blood Transfusion Reaction / Comment(s): . Date of Last Stent Placement:: 11-29-2012 Type of Cardiac Device: Permanent Pacemaker Device Placement Date:: 12-01-2012 Past Psychological History: Anxiety Smoking Status: Former smoker Past Alcohol Use History: Occasional Past Drug Use History: None Reported - Past Family History Mother Family Medical History: Cancer, Myocardial Infarction ([place]) Additional Family Medical History / Comment(s): breast ca Father Family Medical History: No Reported History, Diabetes Mellitus Additional Family Medical History / Comment(s): at age 94 Brother(s) Family Medical History: Congestive Heart Failure (CHF) Additional Family Medical History / Comment(s): heart valve replacement Medications and Allergies Home Medications Medication Instructions Recorded Confirmed Type Brinzolamide/Brimonidine Tart 1 drop BOTH EYES BID 12/11/15 09/24/20 History [Simbrinza 1%-0.2% Eye Drops] Enalapril [Vasotec] 2.5 mg PO DAILY 12/11/15 09/24/20 History Metoprolol Tartrate 25 mg PO BID 12/11/15 09/24/20 History Simvastatin [Zocor] 20 mg PO HS 12/11/15 09/24/20 History busPIRone HCL [Buspar] 7.5 mg PO BID 11/12/18 09/24/20 History Apixaban [Eliquis] 2.5 mg PO BID 10/17/19 09/24/20 History Spironolactone 12.5 mg PO DAILY 10/17/19 09/24/20 History Furosemide [Lasix] 40 mg PO DAILY 01/26/20 09/24/20 History Cholecalciferol [Vitamin D3 (25 5,000 unit PO DAILY 02/20/20 09/24/20 History Mcg = 1000 Iu)] Ergocalciferol [Vitamin D2] 50,000 unit PO MCHUGH 09/24/20 09/24/20 History Melatonin 5 mg PO HS PRN 09/24/20 09/24/20 History Allergies Allergy/AdvReac Type Severity Reaction Status Date / Time No Known Allergies Allergy Verified 09/24/20 07:13 Physical Examination On exam patient is lying comfortably in bed in no acute distress. Patient is alert and oriented x3. There is minimal swelling over the left hip. Skin is intact. Calves are soft and nontender to palpation. Sensation intact. Patient has full range of motion of the left foot and ankle. Neurovascular status and circulatory status are intact. Exams of the head, neck, bilateral upper e xtremities and right lower extremity are within normal limits. Head is normocephalic and atraumatic. Results X-rays of the left hip and pelvis show dislocation of the left total hip arthroplasty. Postreduction x-rays of the left hip suggest persistent dislocation of the left total hip arthroplasty. - Labs Labs: Abnormal Lab Results - Last 24 Hours (Table) 09/24/20 09/24/20 Range/Units 05:37 05:37 RBC 4.03 L (4.30-5.90) m/uL Sodium 130 L (137-145) mmol/L BUN 29 H (9-20) mg/dL Glucose 117 H (74-99) mg/dL H & H 09/24/20 Range/Units 05:37 Hgb 13.7 (13.0-17.5) gm/dL Hct 39.6 (39.0-53.0) % Result Diagrams: 09/24/20 05:37 09/24/20 05:37 Assessment and Plan (1) History of revision of total replacement of left hip joint Current Visit: Yes Status: Acute Code(s): Z96.642 - PRESENCE OF LEFT ARTIFICIAL HIP JOINT SNOMED Code(s): 862202942320623 (2) Hip dislocation, left Current Visit: Yes Status: Acute Code(s): S73.005A - UNSPECIFIED DISLOCATION OF LEFT HIP, INITIAL ENCOUNTER SNOMED Code(s): 826768151 (3) Status post fall Current Visit: No Status: Acute Code(s): Z91.81 - HISTORY OF FALLING SNOMED Code(s): 564806471 Plan: 1. Continue pain control. 2. X-rays are reviewed revealing dislocation of the left total hip arthroplasty. Patient will require a revison of his left total hip arthroplasty. Recommend transfer to a tertiary facility for further management. This is discussed with the patient. All questions are answered and explained to the best of my ability. Patient is in agreement with this plan.
[2020-09-24 12:18] VITALS: BP 151/79; PULSE 60
--- NOTE | 2020-09-24 12:49 | P.DS ---
Providers Date of admission: 09/24/20 07:05 Expected date of discharge: 09/24/20 Attending physician: Marcelo Bennett Consults: 09/24/20 07:03 Consult Physician Routine Consulting Provider: Jean Gutierrez Consult Reason/Comments: painn Do you want consulting provider notified?: Yes Primary care physician: Jean Gutierrez - Discharge Diagnosis(es) (1) History of revision of total replacement of left hip joint Current Visit: Yes Status: Acute (2) Hip dislocation, left Current Visit: Yes Status: Acute (3) Status post fall Current Visit: No Status: Acute Hospital Course: This is an 85 year-old male who was admitted for dislocation of left total hip arthroplasty. Patient has a history of revision left total hip arthroplasty with constrained liner on February 24, [address] Marcelo Bennett. Patient dislocated his left hip at home and was transferred to the emergency room via EMS. X-rays taken in the emergency room revealed dislocation of the left total hip arthroplasty. Closed reduction was attempted in the emergency room and post reduction films suggest persistent dislocation. Patient is transferred to [facility] for further management. Labs and v ital signs are stable on day of transfer. Patient Condition at Discharge: Good Plan - Discharge Summary New Discharge Prescriptions: No Action Metoprolol Tartrate 25 mg PO BID Brinzolamide/Brimonidine Tart [Simbrinza 1%-0.2% Eye Drops] 1 drop BOTH EYES BID Simvastatin [Zocor] 20 mg PO HS Enalapril [Vasotec] 2.5 mg PO DAILY busPIRone HCL [Buspar] 7.5 mg PO BID Spironolactone 12.5 mg PO DAILY Apixaban [Eliquis] 2.5 mg PO BID Furosemide [Lasix] 40 mg PO DAILY Cholecalciferol [Vitamin D3 (25 Mcg = 1000 Iu)] 5,000 unit PO DAILY Ergocalciferol [Vitamin D2] 50,000 unit PO MCHUGH Melatonin 5 mg PO HS PRN PRN Reason: Insomnia Discharge Medication List Brinzolamide/Brimonidine Tart [Simbrinza 1%-0.2% Eye Drops] 1 drop BOTH EYES BID 12/11/15 [History] Enalapril [Vasotec] 2.5 mg PO DAILY 12/11/15 [History] Metoprolol Tartrate 25 mg PO BID 12/11/15 [History] Simvastatin [Zocor] 20 mg PO HS 12/11/15 [History] busPIRone HCL [Buspar] 7.5 mg PO BID 11/12/18 [History] Apixaban [Eliquis] 2.5 mg PO BID 10/17/19 [History] Spironolactone 12.5 mg PO DAILY 10/17/19 [History] Furosemide [Lasix] 40 mg PO DAILY 01/26/20 [History] Cholecalciferol [Vitamin D3 (25 Mcg = 1000 Iu)] 5,000 unit PO DAILY 02/20/20 [History] Ergocalciferol [Vitamin D2] 50,000 unit PO MCHUGH 09/24/20 [History] Melatonin 5 mg PO HS PRN 09/24/20 [History] Follow up Appointment(s)/Referral(s): None,Stated [REFERRING] - 1-2 days Discharge Disposition: OTHER INSTITUTION NOT DEFINED
== END 2020-09-24 15:16 | disposition short-term general hospital (02) | DRG 560 ==
LOC: EC 05:22 → 4SSUR 07:05 → 5NMEDONC 11:14 → 4SSUR 11:14 → 5NMEDONC 11:29
PROVIDERS: ADMIT Orthopaedic Surgery; ATTEND Orthopaedic Surgery
DX: T84.021A Dislocation of internal left hip prosthesis, initial encounter (principal); I42.9 Cardiomyopathy, unspecified; F03.90 Unspecified dementia, unspecified severity, without behavioral disturbance, psychotic disturbance, mood disturbance, and anxiety; I48.91 Unspecified atrial fibrillation; E78.5 Hyperlipidemia, unspecified; G62.9 Polyneuropathy, unspecified; I11.0 Hypertensive heart disease with heart failure; I50.9 Heart failure, unspecified; J44.9 Chronic obstructive pulmonary disease, unspecified; Z20.828 Contact with and (suspected) exposure to other viral communicable diseases; N40.1 Benign prostatic hyperplasia with lower urinary tract symptoms; I25.10 Atherosclerotic heart disease of native coronary artery without angina pectoris; R35.0 Frequency of micturition; H40.9 Unspecified glaucoma; M54.9 Dorsalgia, unspecified; M19.90 Unspecified osteoarthritis, unspecified site; F41.9 Anxiety disorder, unspecified; Z79.01 Long term (current) use of anticoagulants; Z79.899 Other long term (current) drug therapy; Z87.891 Personal history of nicotine dependence; Z95.0 Presence of cardiac pacemaker; Z85.828 Personal history of other malignant neoplasm of skin; Z95.5 Presence of coronary angioplasty implant and graft; Z87.19 Personal history of other diseases of the digestive system; Z98.42 Cataract extraction status, left eye; Z98.41 Cataract extraction status, right eye; Z96.1 Presence of intraocular lens; Z87.39 Personal history of other diseases of the musculoskeletal system and connective tissue; Z98.890 Other specified postprocedural states; Y79.2 Prosthetic and other implants, materials and accessory orthopedic devices associated with adverse incidents; Z91.81 History of falling; W18.11XA Fall from or off toilet without subsequent striking against object, initial encounter; Y92.002 Bathroom of unspecified non-institutional (private) residence as the place of occurrence of the external cause; Z82.49 Family history of ischemic heart disease and other diseases of the circulatory system; Z80.3 Family history of malignant neoplasm of breast; Z83.3 Family history of diabetes mellitus
CPT/HCPCS: 27265; 36415; 73501; 80053; 83735; 84100; 85025; 87635; 96361; 96374; 96376; 99152; 99285

== ENCOUNTER 2020-10-06 14:32 | Emergency (ER) | payer MEDICARE ==
[2020-10-06 14:41] VITALS: RESP 18; TEMP 98.4
[2020-10-06] MEDS ORDERED: fentaNYL (PF) 50 MCG/ML 2 ML AMP IVP STA (14:56)
--- NOTE | 2020-10-06 14:59 | ED ---
General Adult HPI - General Chief complaint: Extremity Injury, Lower Stated complaint: Hip Pain Time Seen by Provider: 10/06/20 14:34 Source: patient, EMS Mode of arrival: EMS - History of Present Illness Initial comments: Dictation was produced using [employer] dictation software. please excuse any grammatical, word or spelling errors. This patient was cared for during a federal and state declared state of emergency secondary to Covid 19 Chief Complaint: 85-year-old male with past medical history of complex left hip procedure presents today with left hip pain. History of Present Illness: A 5-year-old male who presents today with concerns of left hip dislocation. Patient had operation for his left hip. Last week he had a similar situation where he felt like his left hip dislocated. He states it relocated spontaneously. He was seen by orthopedic surgery and is recommended that he be transferred to [facility] for evaluation. He states he saw Dr. Lezama who scheduled an appointment for him to be seen on October 10. [facility] 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 He sat down and felt like his left hip dislocated. He does report pain. Patient states that this hip felt like it popped out at 1 PM. The ROS documented in this emergency department record has been reviewed and confirmed by me. Those systems with pertinent positive or negative responses have been documented in the HPI. All other systems are other negative and/or noncontributory. PHYSICAL EXAM: General Impression: Alert and oriented x3, not in acute distress HEENT: Normocephalic atraumatic, extra-ocular movements intact, pupils equal and reactive to light bilaterally, mucous membranes moist. Cardiovascular: Heart regular rate and rhythm Chest: Able to complete full sentences, no retractions, no tachypnea Abdomen: abdomen soft, non-tender, non-distended, no organomegaly Musculoskeletal: Pulses present and equal in all extremities, no peripheral edema Lower Extremity: Left lower extremity shortened compared to right, neurovascularly intact Motor: no focal deficits noted Neurological: CN II-XII grossly intact, no focal motor or sensory deficits noted Skin: Intact with no visualized rashes Psych: Normal affect and mood ED course: 85-year-old male presents today with left hip pain. Vital signs upon arrival are within acceptable limits. X-ray shows superior hip dislocation. Case was discussed with Dr. Heithoff approximately 3:42 PM to ask if it's okay to proceed with hip with dislocation given that there is another radiopaque rings seen around what seems to be the femoral neck. Dr. Bennett called back at approximately 3:55 PM. He recommended that she be transferred to [facility] for revision surgery. He did not recommend trying to reduce his hip because it will likely be unsuccessful. Case is discussed with [facility]. At 4:30 PM they put him me in contact with Dr. Segura who was agreeable to transfer for ER to ER. Patient is given 4 morphine. - Related Data Home Medications Medication Instructions Recorded Confirmed Brinzolamide/Brimonidine Tart 1 drop BOTH EYES BID 12/11/15 10/06/20 [Simbrinza 1%-0.2% Eye Drops] Enalapril [Vasotec] 2.5 mg PO DAILY 12/11/15 10/06/20 Metoprolol Tartrate 25 mg PO BID 12/11/15 10/06/20 Simvastatin [Zocor] 20 mg PO HS 12/11/15 10/06/20 busPIRone HCL [Buspar] 7.5 mg PO BID 11/12/18 10/06/20 Apixaban [Eliquis] 2.5 mg PO BID 10/17/19 10/06/20 Spironolactone 12.5 mg PO DAILY 10/17/19 10/06/20 Furosemide [Lasix] 40 mg PO DAILY 01/26/20 10/06/20 Cholecalciferol [Vitamin D3 (25 5,000 unit PO DAILY 02/20/20 10/06/20 Mcg = 1000 Iu)] Ergocalciferol [Vitamin D2] 50,000 unit PO MCHUGH 09/24/20 10/06/20 Melatonin 5 mg PO HS PRN 09/24/20 10/06/20 methocarbamoL [Robaxin] 500 mg PO TID PRN 10/06/20 10/06/20 traMADol HCL 50 mg PO TID PRN 10/06/20 10/06/20 Allergies Allergy/AdvReac Type Severity Reaction Status Date / Time No Known Allergies Allergy Verified 10/06/20 15:58 Review of Systems ROS Statement: Those systems with pertinent positive or pertinent negative responses have been documented in the HPI. ROS Other: All systems not noted in ROS Statement are negative. Past Medical History Past Medical History: Atrial Fibrillation, Coronary Artery Disease (CAD), Cancer, Heart Failure, COPD, Dementia, Eye Disorder, Hyperlipidemia, Hypert ension, Osteoarthritis (OA) Additional Past Medical History / Comment(s): Cardiomyopathy, pacemaker., back pain, neuropathy bilateral hands/legs/feet, BPH with frequent night time urination, glaucoma , skin cancer removed from scalp. History of Any Multi-Drug Resistant Organisms: None Reported Past Surgical History: Back Surgery, Heart Catheterization With Stent, Hernia Repair, Joint Replacement, Orthopedic Surgery, Pacemaker Additional Past Surgical History / Comment(s): PCI with 2 stents, pacemaker lt chest-[employer] mod # [id number] serial #[id number]- [employer] 4137-has card, total lt hip, cervical [id number] surgery, lumbar 3-5 disc repair- hardware present,aleksandra carpel tunnel, aleksandra cataracts removed/lens implants, abdominal hernia repair, colonoscopy. Past Anesthesia/Blood Transfusion Reactions: No Reported Reaction Additional Past Anesthesia/Blood Transfusion Reaction / Comment(s): . Date of Last Stent Placement:: 11-29-2012 Type of Cardiac Device: Permanent Pacemaker Device Placement Date:: 12-01-2012 Past Psychological History: Anxiety Smoking Status: Former smoker Past Alcohol Use History: Occasional Past Drug Use History: None Reported - Past Family History Mother Family Medical History: Cancer, Myocardial Infarction ([place]) Additional Family Medical History / Comment(s): breast ca Father Family Medical History: No Reported History, Diabetes Mellitus Additional Family Medical History / Comment(s): at age 94 Brother(s) Family Medical History: Congestive Heart Failure (CHF) Additional Family Medical History / Comment(s): heart valve replacement Course Vital Signs 10/06/20 14:35 Temperature 98.4 F Pulse Rate 62 Respiratory 18 Rate Blood Pressure 109/71 O2 Sat by Pulse 98 Oximetry Medical Decision Making - Lab Data Result diagrams: 10/06/20 15:06 10/06/20 15:06 Lab Results 10/06/20 10/06/20 Range/Units 15:06 15:06 WBC 4.3 (3.8-10.6) k/uL RBC 3.73 L (4.30-5.90) m/uL Hgb 12.9 L (13.0-17.5) gm/dL Hct 36.3 L (39.0-53.0) % MCV 97.3 (80.0-100.0) fL MCH 34.4 (25.0-35.0) pg MCHC 35.4 (31.0-37.0) g/dL RDW 14.3 (11.5-15.5) % Plt Count 230 (150-450) k/uL MPV 7.6 Neutrophils % 73 % Lymphocytes % 10 % Monocytes % 11 % Eosinophils % 0 % Basophils % 2 % Neutrophils # 3.1 (1.3-7.7) k/uL Lymphocytes # 0.4 L (1.0-4.8) k/uL Monocytes # 0.5 (0-1.0) k/uL Eosinophils # 0.0 (0-0.7) k/uL Basophils # 0.1 (0-0.2) k/uL Poikilocytosis Slight Sodium 133 L (137-145) mmol/L Potassium 4.2 (3.5-5.1) mmol/L Chloride 101 (98-107) mmol/L Carbon Dioxide 25 (22-30) mmol/L Anion Gap 7 mmol/L BUN 27 H (9-20) mg/dL Creatinine 1.29 H (0.66-1.25) mg/dL Est GFR (CKD-EPI)AfAm 58 (>60 ml/min/1.73 sqM) Est GFR (CKD-EPI)NonAf 50 (>60 ml/min/1.73 sqM) Glucose 93 (74-99) mg/dL Calcium 8.5 (8.4-10.2) mg/dL Disposition Clinical Impression: Hip dislocation, left Disposition: OTHER INSTITUTION NOT DEFINED Condition: Fair Referrals: Jean Gutierrez MD [Primary Care Provider] - 1-2 days Time of Disposition: 16:39 - Out of Hospital Transfer - Req. Specs Out of Hospital Transfer - Requested Specifics: Other Emergency Center ([facility])
[2020-10-06 15:14] LABS: Basophils # (A) 0.1 k/uL (0-0.2); Basophils % (A) 2 %; Eosinophils % (A) 0 %; HCT 36.3 % (39.0-53.0); HGB 12.9 gm/dL (13.0-17.5); Lymphocytes # (A) 0.4 k/uL (1.0-4.8); Lymphocytes % (A) 10 %; MCH 34.4 pg (25.0-35.0); MCHC 35.4 g/dL (31.0-37.0); MCV 97.3 fL (80.0-100.0); Mean Platelet Volume 7.6; Monocytes # (A) 0.5 k/uL (0-1.0); Monocytes % (A) 11 %; Neutrophils # (A) 3.1 k/uL (1.3-7.7); Neutrophils % (A) 73 %; Platelet Count 230 k/uL (150-450); Poikilocytosis Slight; RBC 3.73 m/uL (4.30-5.90); RDW 14.3 % (11.5-15.5); WBC 4.3 k/uL (3.8-10.6)
[2020-10-06 15:28] LABS: Calcium 8.5 mg/dL (8.4-10.2); Potassium 4.2 mmol/L (3.5-5.1)
--- NOTE | 2020-10-06 15:59 | XR ---
EXAMINATION TYPE: XR Hip LT and AP Pelvis DATE OF EXAM: 10/06/2020 COMPARISON: NONE HISTORY: Hip pain TECHNIQUE: 3 views FINDINGS: There is left hip prosthesis. There is a lateral dislocation of the prosthetic femoral head . I see no fracture. IMPRESSION: Dislocated hip prosthesis.
[2020-10-06] MEDS ORDERED: MORPHINE SULFATE 4 MG/ML SYRINGE IVP STA ×2 (16:18→17:48)
[2020-10-06 16:54] VITALS: BP 129/95; PULSE 88
== END 2020-10-06 17:53 | disposition other institution (70) ==
LOC: EC 14:32
DX: Z03.818 Encounter for observation for suspected exposure to other biological agents ruled out (principal); S73.005A Unspecified dislocation of left hip, initial encounter; I48.91 Unspecified atrial fibrillation; I25.10 Atherosclerotic heart disease of native coronary artery without angina pectoris; I50.9 Heart failure, unspecified; J44.9 Chronic obstructive pulmonary disease, unspecified; F03.90 Unspecified dementia, unspecified severity, without behavioral disturbance, psychotic disturbance, mood disturbance, and anxiety; E78.5 Hyperlipidemia, unspecified; M19.90 Unspecified osteoarthritis, unspecified site; I11.0 Hypertensive heart disease with heart failure; I42.9 Cardiomyopathy, unspecified; F41.9 Anxiety disorder, unspecified; N40.0 Benign prostatic hyperplasia without lower urinary tract symptoms; H40.9 Unspecified glaucoma; G62.9 Polyneuropathy, unspecified; Z79.01 Long term (current) use of anticoagulants; Z79.899 Other long term (current) drug therapy; Z85.828 Personal history of other malignant neoplasm of skin; Z87.891 Personal history of nicotine dependence; Z95.0 Presence of cardiac pacemaker; Z95.5 Presence of coronary angioplasty implant and graft; X58.XXXA Exposure to other specified factors, initial encounter
CPT/HCPCS: 96374; 96375; 96376; 99285; 36415; 80048; 85025; 87635; 73502; U0003; J2270; J3010

== ENCOUNTER 2020-11-13 09:02 | Emergency (ER) | payer MEDICARE ==
[2020-11-13 09:16] VITALS: TEMP 97.9
[2020-11-13] MEDS ORDERED: SODIUM CHLORIDE 0.9% 1,000 ML IV SCH (09:30)
[2020-11-13] MEDS ORDERED: HYDROmorphone 1 MG/ML 1 ML SYRINGE IVP STA (09:35)
--- NOTE | 2020-11-13 09:38 | ED ---
General Adult HPI <Faustina Mathias - Last Filed: 11/13/20 11:45> - General Source: patient, EMS, RN notes reviewed Mode of arrival: EMS Limitations: no limitations <Mark Wade - Last Filed: 11/13/20 12:33> - General Chief complaint: Extremity Injury, Lower Stated complaint: lt hip dislocation Time Seen by Provider: 11/13/20 09:16 - History of Present Illness Initial comments: Patient is a pleasant 85-year-old male presenting to the emergency Department with left hip discomfort. Patient states he was in bed rolling over when his left hip popped out. Patient states this is happened approximate 4 times previously. Patient recently did see Dr. Bennett and they're in the process of getting him to a specialist at [facility] in [place]. Patient states discomfort is currently 6/10. Patient did receive some pain medication prior to arrival. No other area of injury or concern. Patient does have history of previous hip replacement around 30 years ago as well as revision around a year ago. (Mark Wade) - Related Data Home Medications Medication Instructions Recorded Confirmed Brinzolamide/Brimonidine Tart 1 drop BOTH EYES BID@0800,1700 12/11/15 11/13/20 [Simbrinza 1%-0.2% Eye Drops] Enalapril [Vasotec] 2.5 mg PO DAILY@0800 12/11/15 11/13/20 Metoprolol Tartrate 25 mg PO BID@0800,1700 12/11/15 11/13/20 Simvastatin [Zocor] 20 mg PO HS@2100 12/11/15 11/13/20 Apixaban [Eliquis] 2.5 mg PO BID@0800,1700 10/17/19 11/13/20 Furosemide [Lasix] 40 mg PO DAILY@0800 01/26/20 11/13/20 Cholecalciferol [Vitamin D3 (25 125 mcg PO DAILY@0800 02/20/20 11/13/20 Mcg = 1000 Iu)] Melatonin 5 mg PO HS@2100 09/24/20 11/13/20 Acetaminophen Oral Susp [Tylenol] 650 mg PO Q8H PRN 11/13/20 11/13/20 Acetaminophen Suppository [Tylenol 650 mg RECTAL Q8H PRN 11/13/20 11/13/20 Suppository] Acetaminophen Tab [Tylenol] 650 mg PO BID@0800,1700 11/13/20 11/13/20 Acetaminophen Tab [Tylenol] 650 mg PO Q8H PRN 11/13/20 11/13/20 Artificial Tears-Hypromellose 2 drops BOTH EYES Q8H PRN 11/13/20 11/13/20 [Artificial Tear Drops] Docusate [Colace] 100 mg PO DAILY@0800 11/13/20 11/13/20 Liquicel 30 ml PO DAILY@1200 11/13/20 11/13/20 Magnesium Hydroxide [Milk of 7,200 mg PO Q48H PRN 11/13/20 11/13/20 Magnesia Concentrate] Na Phos,M-B/Na Phos,Di-Ba [Fleet 133 ml RECTAL DAILY PRN 11/13/20 11/13/20 Adult] Tiotropium 2.5 Mcg/Puff [Spiriva 2 puff INHALATION RT-DAILY@0800 11/13/20 11/13/20 Respimat 2.5 Mcg] bisacodyL [Bisacodyl] 10 mg RECTAL DAILY PRN 11/13/20 11/13/20 busPIRone HCL 7.5 mg PO BID@0800,1700 11/13/20 11/13/20 polyethylene glycoL 3350 [Miralax] 17 gm PO DAILY PRN 11/13/20 11/13/20 Allergies Allergy/AdvReac Type Severity Reaction Status Date / Time No Known Allergies Allergy Verified 11/13/20 10:12 Review of Systems ROS Other: All systems not noted in ROS Statement are negative. <Faustina Mathias - Last Filed: 11/13/20 11:45> ROS Other: All systems not noted in ROS Statement are negative. Constitutional: Denies: fever Eyes: Denies: eye pain ENT: Denies: ear pain Respiratory: Denies: cough, dyspnea Cardiovascular: Denies: chest pain Endocrine: Denies: fatigue Gastrointestinal: Denies: abdominal pain Genitourinary: Denies: dysuria Musculoskeletal: Reports: as per HPI Skin: Denies: rash Neurological: Denies: weakness <Mark Wade - Last Filed: 11/13/20 12:33> ROS Statement: Those systems with pertinent positive or pertinent negative responses have been documented in the HPI. Past Medical History Past Medical History: Atrial Fibrillation, Coronary Artery Disease (CAD), Cancer , Heart Failure, COPD, Dementia, Eye Disorder, Hyperlipidemia, Hypertension, Osteoarthritis (OA) Additional Past Medical History / Comment(s): Cardiomyopathy, pacemaker., back pain, neuropathy bilateral hands/legs/feet, BPH with frequent night time urination, glaucoma , skin cancer removed from scalp. History of Any Multi-Drug Resistant Organisms: None Reported Past Surgical History: Back Surgery, Heart Catheterization With Stent, Hernia Repair, Joint Replacement, Orthopedic Surgery, Pacemaker Additional Past Surgical History / Comment(s): PCI with 2 stents, pacemaker lt chest-[employer]bib mod # [id number] serial #[id number]- [employer] [id number]-has card, total lt hip, cervical [id number] surgery, lumbar 3-5 disc repair- hardware present,aleksandra carpel tunnel, aleksandra cataracts removed/lens implants, abdominal hernia repair, colonoscopy. Past Anesthesia/Blood Transfusion Reactions: No Reported Reaction Additional Past Anesthesia/Blood Transfusion Reaction / Comment(s): . Date of Last Stent Placement:: 11-29-2012 Type of Cardiac Device: Permanent Pacemaker Device Placement Date:: 12-01-2012 Past Psychological History: Anxiety Smoking Status: Former smoker Past Alcohol Use History: Occasional Past Drug Use History: None Reported - Past Family History Mother Family Medical History: Cancer, Myocardial Infarction ([place]) Additional Family Medical History / Comment(s): breast ca Father Family Medical History: No Reported History, Diabetes Mellitus Additional Family Medical History / Comment(s): at age 94 Brother(s) Family Medical History: Congestive Heart Failure (CHF) Additional Family Medical History / Comment(s): heart valve replacement <Mark Wade - Last Filed: 11/13/20 12:33> General Exam Limitations: no limitations General appearance: alert, in no apparent distress Head exam: Present: normocephalic Eye exam: Present: normal appearance Neck exam: Present: normal inspection. Absent: tenderness Respiratory exam: Present: normal lung sounds bilaterally Cardiovascular Exam: Present: regular rate, normal rhythm Expanded Peripheral pulses: 2+: Posterior Tibialis (L) GI/Abdominal exam: Present: soft. Absent: tenderness Extremities exam: Present: other (Left leg is flexed. Distally neurovascularly intact. Left hip with mild tenderness and abnormal structure concerning for posterior dislocation) Neurological exam: Present: alert. Absent: motor sensory deficit Psychiatric exam: Present: normal affect, normal mood Skin exam: Present: normal color <Mark Wade - Last Filed: 11/13/20 12:33> Course Vital Signs 11/13/20 11/13/20 11/13/20 09:13 11:13 11:35 Temperature 97.9 F Pulse Rate 62 60 60 Respiratory 16 20 20 Rate Blood Pressure 139/73 147/73 106/68 O2 Sat by Pulse 95 93 L 95 Oximetry 11/13/20 11/13/20 11/13/20 11:40 11:42 12:00 Temperature Pulse Rate 60 60 61 Respiratory 18 20 20 Rate Blood Pressure 149/91 84/46 100/58 O2 Sat by Pulse 99 100 100 Oximetry 11/13/20 12:15 Temperature Pulse Rate 60 Respiratory 20 Rate Blood Pressure 150/84 O2 Sat by Pulse 99 Oximetry Procedures - Orthopedic Joint Reduction Joint #1 Consent Obtained: verbal consent, written consent Side: left Joint Reduction Location: hip Analgesia: procedural sedation Technique Used: traction/counter-traction Post-Reduction Neuro Exam: intact Post-Reduction Vascular Exam: intact Post Reduction X-Ray Obtained: Yes Post Reduction X-Ray Results: reduced Splint Applied: No Patient Tolerated Procedure: well <Faustina Mathias - Last Filed: 11/13/20 11:45> - Procedural Sedation Procedural Sedation Start Time: 11:35 Procedural Sedation Stop Time: 12:10 Indications: fracture/dislocation reduction ASA Class: III Mallampati Airway Score: 2 Preparation: property assessment monitor applied, pulse oximeter, capnometry used, supplemental O2 applied IV Propofol Dose (mgs): 100 Complications: none Patient Tolerated Procedure: well, no complications <Mark Wade - Last Filed: 11/13/20 12:33> Medical Decision Making - Radiology Data Radiology results: image reviewed (X-ray left hip shows posterior superior dislocation. Repeat x-ray shows good reduction.) <Mark Wade - Last Filed: 11/13/20 12:33> - Medical Decision Making Patient reevaluated. Alert and appropriate. Good x-ray. Patient will follow- up with orthopedics as planned. (Mark Wade) Disposition <Faustina Mathias - Last Filed: 11/13/20 11:45> Is patient prescribed a controlled substance at d/c from ED?: No Time of Disposition: 12:32 <Mark Wade - Last Filed: 11/13/20 12:33> Clinical Impression: Hip dislocation, left Disposition: HOME SELF-CARE Condition: Stable Instructions (If sedation given, give patient instructions): Moderate Sedation (ED), Hip Dislocation (ED) Additional Instructions: Please follow-up with your [facility] orthopedic doctor in the next couple days for recheck. If recheck is longer than that please call to obtain earlier appointment. Please also follow-up with your primary care physician and local orthopedics. Return for hip or leg prongs, worsening symptoms or other concerns. Referrals: Jean Gutierrez MD [Primary Care Provider] - 1-2 days Marcelo Bennett DO [Doctor of Osteopathic Medicine] - 1-2 days
--- NOTE | 2020-11-13 10:42 | XR ---
Left hip HISTORY: Dislocation 2 views of left hip correlated prior exam 02/14/2020 Patient is post left hip arthroplasty. There is dislocation posteriorly and superiorly of the left hi p arthroplasty. Heterotopic new bone is present about the left hip. Postop changes are noted to the l umbar spine. No evident fracture. Dense vascular calcifications are noted incidentally. IMPRESSION: Dislocation of patient's left hip arthroplasty.
[2020-11-13] MEDS ORDERED: PROPOFOL 10 MG/ML 20 ML VIAL IV ONE (11:15)
[2020-11-13 11:46] VITALS: RESP 20
--- NOTE | 2020-11-13 13:07 | XR ---
Limited left hip HISTORY: Post reduction Correlation to prior exam same dated earlier time single frontal view of the left hip There is interval reduction of patient's left hip dislocation. Bone mineralization is reduced. IMPRESSION: Interval relocation left hip
[2020-11-13 13:12] VITALS: BP 151/89; PULSE 64
== END 2020-11-13 13:32 | disposition home or self-care (01) ==
LOC: EC 09:02
DX: S73.015A Posterior dislocation of left hip, initial encounter (principal); I48.91 Unspecified atrial fibrillation; I25.10 Atherosclerotic heart disease of native coronary artery without angina pectoris; I50.9 Heart failure, unspecified; J44.9 Chronic obstructive pulmonary disease, unspecified; E78.5 Hyperlipidemia, unspecified; M19.90 Unspecified osteoarthritis, unspecified site; Z79.51 Long term (current) use of inhaled steroids; Z79.899 Other long term (current) drug therapy; Z79.01 Long term (current) use of anticoagulants; Z87.891 Personal history of nicotine dependence; Z95.5 Presence of coronary angioplasty implant and graft; Z95.0 Presence of cardiac pacemaker; Z98.42 Cataract extraction status, left eye; Z98.41 Cataract extraction status, right eye; Z96.1 Presence of intraocular lens; Z85.828 Personal history of other malignant neoplasm of skin; Z96.642 Presence of left artificial hip joint; Z80.3 Family history of malignant neoplasm of breast
CPT/HCPCS: 73501; 73502; 99283; 96374; 96375; 96361 ×4; 27250; 99152; 99153; J1170; J2704